=== PATIENT | male | born 1970 | race Caucasian/White ===

== ENCOUNTER 2019-11-14 18:57 | Emergency (ER) | payer OTHER, SELFPAY ==
[2019-11-14 19:06] VITALS: BP 190/112; PULSE 73; RESP 18; TEMP 36.9; O2SAT 97; BMI 31.8
--- NOTE | 2019-11-14 19:17 | ED_ITS ---
HPI - Back Pain/Injury General: Chief Complaint: Back Pain/Injury Stated Complaint: back pain Time Seen by Provider: 11/14/19 19:14 Source: patient Mode of arrival: ambulatory Limitations: no limitations History of Present Illness: HPI Narrative: Patient comes in today with right flank pain radiating into his groin. Patient appears well. Patient does appear in mild to moderate pain. Patient does report taking some Zofran prior to coming to the ER and denies any nausea or vomiting. Patient does have a history of renal stones. Review of Systems General: Reports: 10 or more systems reviewed and unremarkable except in HPI and below : Reports: flank pain (right) Physical Exam Const: COMMON NORMALS: no acute distress and patient oriented x3 GENERAL APPEARANCE: cooperative HENMT: COMMON NORMALS: normocephalic and Normal external nose present HEAD & SCALP: normal to inspection and normocephalic NOSE: Normal external nose present MOUTH: Normal oral and palatal mucosa present THROAT: posterior oropharynx normal Eye: GENERAL EYE: appearance normal, both eyes and all related structures Neck/C-Spine: COMMON NORMALS: full ROM Lymph: LYMPHATIC: no lymphadenopathy noted Chest: COMMONS NORMALS: normal inspection of the chest Resp: COMMON NORMALS: normal respiratory effort EFFORT & INSPECTION: Yes able to speak in complete sentences Cardio: COMMON NORMALS: regular rate and regular rhythm RATE: regular rate RHYTHM: regular rhythm GI: COMMON NORMALS: non-tender : COMMON NORMALS: Yes no CVA tenderness BLADDER/KIDNEY EXAM: Yes no CVA tenderness Back/Pelvis: COMMON NORMALS: no CVA tenderness and thoracic and lumbar spine normal to inspection Extremity: COMMON NORMALS: normal to inspection Neuro: COMMON NORMALS: patient oriented x3 and moves all extremities Psych: COMMON NORMALS: mental status grossly normal and cooperative Skin: COMMON NORMALS: no rashes or lesions noted GENERAL SKIN EXAM: no rashes or lesions noted Course Vital Signs: Vital signs: Vital Signs Temperature 98.5 F 11/14/19 19:06 Pulse Rate 73 11/14/19 19:06 Respiratory Rate 18 11/14/19 19:48 Blood Pressure 190/112 11/14/19 19:06 Pulse Oximetry 97 11/14/19 19:06 MDM - Back Pain/Injury MDM Narrative: Medical decision making narrative: Patient comes in with right flank pain radiating to the groin. Patient is concerned for kidney stone. Exam notes abdomen soft nontender. Patient does not have any right CVA tenderness. Vital signs are normal except for elevated blood pressure. Differential diagnosis includes but not limited to cholecystitis, renal calculi, gastr oenteritis, appendicitis. Laboratory values noted positive blood in the urine without any signs of white blood cells. CT scan of the abdomen noted a 4 mm stone in the mid right ureter. Patient also has a abnormal mass in the colon. Dr. Lopez from [facility] did call and report this finding to me. He recommended further evaluation with imaging or a colonoscopy. Reviewed the test results with patient recommendations for follow-up regarding renal colic and then also colonoscopy with surgery. Patient reports understanding and agreed to plan with case management to consult with referral. Lab Data: Labs: Lab Results 11/14/19 Range/Units 19:20 Urine Color Yellow (Yellow) Urine Appearance Clear (CLEAR) Urine pH 5 (5-7) Ur Specific Gravit y 1.020 (1.005-1.030) Urine Protein Neg (Negative) Urine Glucose (UA) Norm (Normal) Urine Ketones Negative (Negative) Urine Blood 3+ H (Negative) Urine Nitrate Negative (Negative) Urine Bilirubin Neg (NEGATIVE) Urine Urobilinogen 1 H (Negative) mg/dL Ur Leukocyte Jennifer ase Negative (Negative) Urine RBC >100 H (0-2) /hpf Urine WBC None (0-5) /hpf Ur Squamous Epith Cells 0-4 H (0-5) Amorphous Sediment Not Reportable Urine Bacteria Trace (NONE) Urine Mucus 3+ Discharge Plan Discharge Patient Disposition: Home Clinical Impression: Renal colic, Ureteral calculus, right, Abnormal abdominal CT scan Condition: Stable Prescriptions: New tamsulosin 0.4 mg capsule 0.4 mg PO DAILY Qty: 10 RF: 0 hydrocodone-acetaminophen 5-325 mg tablet 1 tab PO Q6H PRN (Reason: pain (scale score 7-10)) Qty: 14 RF: 0 ondansetron HCl 4 mg tablet 4 mg PO Q8H PRN (Reason: nausea and vomiting) Qty: 7 RF: 0 Referrals: Lauri Stoddard DO [Primary Care Provider] - Discharge Diet: Usual diet Discharge Activity: Increase activity as tolerated Patient Instructions: Renal Colic (ED) Activity Restrictions/Additional Instructions: Drink plenty of water. Follow-up with urology for further treatment of kidney stone. Return to the emergency department for high fever or uncontrolled symptoms. You also need follow-up regarding abnormal imaging of the colon. It is recommended you have a colonoscopy for further evaluation to rule out cancer of the colon. It is important for you to follow-up regarding this. Case management will assist with your follow-up for both urology and the abnormal CT scan result. Coding Level of Care Code ED Furnace Tapper for Chg Fwd Exam Comprehensive
--- NOTE | 2019-11-14 19:17 | CTR_ITS ---
PROCEDURE INFORMATION: Exam: CT Abdomen And Pelvis Without Contrast Exam date and time: 11/14/2019 7:19 PM Age: 49 years old Clinical indication: Abdominal pain; Patient HX: Right flank pain since this am. History of kidney stones TECHNIQUE: Imaging protocol: Computed tomography of the abdomen and pelvis without contrast. Radiation optimization: All CT scans at this facility use at least one of these dose optimization techniques: automated exposure control; mA and/or kV adjustment per patient size (includes targeted exams where dose is matched to clinical indication); or iterative reconstruction. COMPARISON: CT abdomen pelvis w con* [id number] 04/19/2019 1:22 PM RADIATION DOSE METRICS: Total DLP (mGy-cm): 2173.42 FINDINGS: Limitations: The absence of intravenous contrast lessens the sensitivity of this study for solid organ abnormalities. Liver: There is no focal abnormality within the liver. Gallbladder and bile ducts: The gallbladder is normal. Pancreas: The pancreas is normal. Spleen: The spleen is normal. Adrenals: The adrenal glands are normal. Kidneys and ureters: There is a 4 mm sized stone in the mid right ureter causing mild right hydronephrosis. Stone measures approximately 1300 Hounsfield units and is possibly visible on the recruitment consultant image. There are multiple bilateral renal collecting system calcifications. There is no evidence of left hydronephrosis. There is no stone in the left ureter. Stomach and bowel: There is a segment of abnormal thickening of the distal transverse colon worrisome for malignancy. There also few small mildly prominent lymph nodes in the adjacent mesentery. Further evaluation such as with colonoscopy or colonography is recommended. Appendix: A normal appendix is identified. Intraperitoneal space: Unremarkable. No free air. No significant fluid collection. Vasculature: Unremarkable. No abdominal aortic aneurysm. Lymph nodes: See Stomach and bowel finding. Bladder: Unremarkable as visualized. Reproductive: Unremarkable as visualized. Bones/joints: There are mild degenerative changes in the lower lumbar spine. Soft tissues: Unremarkable. CT/CT kidney stone 19543 IMPRESSION: 1. Findings are suspicious for colon cancer, further evaluation suggested. 2. Bilateral nephrolithiasis. 3. Obstructing stone in the mid right ureter. Radiation Dose CTDIVOL = (mGy): DLP = 2173.42 (mGy-cm)
[2019-11-14 19:44] LABS: Urine Color Yellow (Yellow)
[2019-11-14 19:45] LABS: Add Urine Microscopic? YES; Bilirubin Urine Neg (NEGATIVE); Blood Urine 3+ (Negative); Glucose Urine UA Norm (Normal); Ketones Urine Negative (Negative); Leukocyte Esterase Urine Negative (Negative); Nitrate Urine Negative (Negative); Protein Urine Neg (Negative); Urine Appearance Clear (CLEAR); Urobilinogen Urine 1 mg/dL (Negative); pH Urine 5 (5-7)
[2019-11-14 19:48] VITALS: RESP 18
[2019-11-14 19:48] LABS: Add Urine Culture? Yes; Bacteria Urine TRACE; Mucus Urine 3+; RBC Urine >100 /hpf (0-2); Squamous Epithelial Cell Urine 0-4 (0-5)
[2019-11-14] MEDS: ketorolac 30 mg/mL INJ 15 MG IVP ×2 (19:48→20:44)
[2019-11-14] MEDS: morphine 4 mg/mL SDV 1 mL 2 MG IVP ×2 (19:48→20:45)
[2019-11-14 20:31] VITALS: BP 179/109; RESP 16; O2SAT 98
[2019-11-14 20:37] LABS: Basophils # 0.1 10^3/uL (0.0-0.1); Basophils % 0.8 %; Eosinophils # 0.4 10^3/uL (0.0-0.8); Hematocrit 43.6 % (42.0-52.0); Hemoglobin 13.9 g/dL (11.7-16.6); Lymphocytes # 2.7 10^3/uL (0.8-4.8); Lymphocytes % 32.1 %; Mean Corpuscular HGB Conc 31.9 g/dL (30.0-36.0); Mean Corpuscular Hemoglobin 26.4 pg (28.0-34.0); Mean Corpuscular Volume 82.9 fL (80-94); Mean Platelet Volume 12.4 fL (7.4-10.4); Monocytes # 0.6 10^3/uL (0.2-0.9); Monocytes % 6.9 %; Neutrophils # 4.69 10^3/uL (1.8-7.7); Nucleated Red Blood Cells % 0 %; Platelet Count 228 10^3/cmm (130-400); Red Blood Count 5.26 10^6/uL (4.1-5.3); Red Cell Distribution Width 12.9 % (12.1-15.1); White Blood Count 8.5 10^3/uL (4.0-10.0)
[2019-11-14] MEDS: HYDROcodone-acetaminophen 7.5-325 mg Tablet 1 TAB PO (20:44)
[2019-11-14 20:45] VITALS: RESP 16
[2019-11-14 20:49] LABS: Alanine Aminotransferase 22 U/L (0-41); Albumin Level 4.5 g/dL (3.5-5.2); Alkaline Phosphatase 84 IU/L (40-130); Anion Gap 12.7 (5-19); Aspartate Amino Transferase 21 U/L (0-40); Blood Urea Nitrogen 11 mg/dL (6-20); Calcium 9.3 mg/dL (8.5-10.5); Carbon Dioxide 27 mmol/L (22-29); Chloride 105 mmol/L (98-107); Globulin 2.4 g/dL (1.3-4.6); Glomerular Filtration Rate 64.9 mL/min (90-130); Glucose 101 mg/dL (65-115); Osmolality Calculated 288 mOsm/kg (285-295); Potassium 3.7 mmol/L (3.5-5.1); Sodium 141 mmol/L (136-145); Total Bilirubin 0.2 mg/dL (0.15-1.2); Total Protein 6.9 g/dL (6.6-8.7)
[2019-11-14 20:51] VITALS: BP 202/113
--- NOTE | 2019-11-17 10:26 | PC.SOCIAL ---
Called Urology regarding ED referral for Kidney stones spoke with Cinthya. She will review and call patient with appt. Called Nicolle at Surgery clinic regarding ED referral for Colonoscopy related to abnormal CT scan. She will review and call patient with appt.
--- NOTE | 2019-11-26 11:07 | DCPLANNER ---
Patient had an appointment scheduled for 11.18.19 and this appointment was cancelled. Patient had an appointment scheduled for 11.18.19 at 3:45 with [facility], patient did attend appointment with Dr. Lopez.
== END 2019-11-14 21:19 | disposition home or self-care (01) ==
PROVIDERS: Emergency Medicine; Emergency Provider Nurse Practitioner Family; PCP Family Medicine
DX: N20.1 Calculus of ureter (principal); R93.5 Abnormal findings on diagnostic imaging of other abdominal regions, including retroperitoneum
CPT/HCPCS: 12345; 74176; 80053; 81001; 81003; 85025; 87086; 96374; 96375; 96376; 99283; J1885; J2270

== ENCOUNTER 2019-11-27 07:41 | Day surgery (SDC) | payer OTHER, SELFPAY ==
[2019-11-25 11:03] VITALS: BMI 31.1
[2019-11-27 08:00] VITALS: BP 166/97; PULSE 60; RESP 18; TEMP 37.3; O2SAT 98
[2019-11-27] MEDS: sodium chloride 0.9% 1,000 ML 30 ML IV (08:15)
--- NOTE | 2019-11-27 08:17 | ANES.PREANE2 ---
Pre-Anesthetic Assessment Pre-Anesthetic Assessment: Height/Weight: Height 1.83 m Weight 104.326 kg Temp Pulse Resp BP Pulse Ox 99.2 F 60 18 166/97 98 11/27/19 08:00 11/27/19 08:00 11/27/19 08:00 11/27/19 08:00 11/27/19 08:00 Preop Diagnosis: Hematochezia Proposed Procedure: Operation Date: 11/27/19 08:30 Proposed Procedures p Colonoscopy with poss biopsy poss polypectomy 84354 K92.1(Not Applicable) - Brad Lopez MD Last intake: Intake Last Liquid Date 11/26/19 Last Liquid Time 23:55 Last Solid Date 11/25/19 Last Solid Time 20:00 Social: Social History: Alcohol (occ) and Tobacco Exam: Pre-Anes Outpt Exam: alert, oriented x 3, clear to auscultation bilaterally and regular rate & rhythm Airway: Submandibular: WNL Cervical ROM: WNL MP: 1 Dentition: Full (dentures) History/ROS: No significant history except as noted Pulmonary: Pulmonary: None reported CV/HEM: CV/HEM: HTN : : None reported Hepatic: Hepatic: None reported GI: Comments: GI bleed Metabolic: Metabolic: None reported Musc/skel: Musc/skel: None reported Neuropsych: Neuropsych: None reported Anesthetic Plan: ASA status: 2 Anesthesia: Anesthesia Evaluation and MAC Risk of > 500 ml blood loss (7ml/kg in children): No Meds/Allergies Current Medications: Current Medications Generic Name Dose Route Start Last Admin Trade Name Freq PRN Reason Stop Dose Admin Sodium Chloride 1,000 mls @ 30 ml s/hr 11/27/19 08:00 11/27/19 08:15 Sodium Chloride 0.9% IV 30 mls/hr .Q24H FEROZ Administration PFSH Anesthesia PFSH: Medical History Ureteral calculus, right Surgical History History of oral surgery Family History Grandmother Cancer Mother Diabetes Denies family history of Anesthesia complication Bleeding disorder Social History Smoking and tobacco status: current every day smoker pipe Pipes smoked per week: 14 and smokeless tobacco Second hand smoke exposure: No Alcohol intake: current Alcohol intake frequency: holidays/special occasions only Alcohol type: beer Adopted: No Caregiver/support person: Yes Lives independently: Yes Housing: House Marital status: service: Yes branch: [employer] Current occupational status: employed Current occupational exposures/hazards: No Pets and animals: No History of recent travel: No Sexually active: Yes Current gender identity: Male and Female Ana M/Adventist: Cheondoism Data Anesthesia Cardiac Studies: No Data to Display
--- NOTE | 2019-11-27 09:22 | W.PM.OPSUD ---
Surgery/Procedure H&P Update DATE OF PROCEDURE: November 27, 2019 DATE H&P PERFORMED: 11/18/19 H&P UPDATE INFORMATION: I have reviewed H&P completed within last 30 days, I have examined patient prior to procedure and No changes to prior documentation PREOP DIAGNOSIS: Hematochezia PLANNED PROCEDURE: Operation Date: 11/27/19 08:30 Proposed Procedures p Colonoscopy with poss biopsy poss polypectomy 58227 K92.1(Not Applicable) - Brad Lopez MD
[2019-11-27 10:17] VITALS: BP 147/92; PULSE 58; RESP 18; TEMP 36.4; O2SAT 98
[2019-11-27 10:27] VITALS: BP 144/93; PULSE 57; RESP 18; TEMP 36.4; O2SAT 97
--- NOTE | 2019-11-27 11:08 | PM.OP ---
Operative Report Date of procedure: November 27, 2019 Pre-op Diagnosis: Hematochezia Post-op Diagnosis: Distal transverse colon mass concerning for malignancy Procedure Done: Colonoscopy past splenic flexure with biopsy Colonoscopy with submucosal injection of Joelle Ink Specimens removed/disposition: Transverse colon mass Surgeon: Brad Lopez Anesthesia: MAC Condition: stable Disposition: same day Procedure: The patient was taken to the operating room and placed in left lateral position under MAC . Bowel prep was fair Digital rectal exam was normal. A colonoscope was introduced and advanced up to the distal transverse colon where there is a circumferential obstructing mass noted beyond which I could not pass the colonoscope. The mass appeared friable and multiple biopsies were obtained with cold biopsy forceps. The area was marked with Joelle ink which was injected submucosally. The colonoscope was withdrawn. The patient was taken to the recovery room in stable condition.
== END 2019-11-27 11:10 | disposition home or self-care (01) ==
PROVIDERS: PCP Family Medicine; Visit Provider Surgery
PROC: 0DJD8ZZ Inspection of Lower Intestinal Tract, Via Natural or Artificial Opening Endoscopic (ICD-10-PCS; CPT 45378; 2019-11-27 09:30)
DX: K92.1 Melena (principal); C18.6 Malignant neoplasm of descending colon; I10 Essential (primary) hypertension
CPT/HCPCS: 12345; 45380; 45381; 88305; J2704; J7030

== ENCOUNTER 2019-11-28 09:27 | Inpatient (IN) | payer OTHER, SELFPAY ==
[2019-11-27 17:44] VITALS: BMI 31.1
[2019-11-28] VITALS (24 sets, daily range): BP systolic 110–182; BP diastolic 72–104; PULSE 57–97; RESP 14–20; TEMP 36.6–37.2; O2SAT 92–99
--- NOTE | 2019-11-28 06:20 | P.ANESASSM_ITS ---
Pre-Anesthetic Assessment Pre-Anesthetic Assessment: Height/Weight: Height 1.83 m Weight 104.326 kg Temp Pulse Resp BP Pulse Ox 97.8 F 57 L 16 182/101 97 11/28/19 06:13 11/28/19 06:13 11/28/19 06:13 11/28/19 06:13 11/28/19 06:13 Preop Diagnosis: Transverse colon cancer Proposed Procedure: Operation Date: 11/28/19 07:00 Proposed Procedures p Laparoscopic poss open Left Hemicolectomy 98314 C18.4(Not Applicable) - Brad Lopez MD Familial anesthetic complications: none Last intake: Intake Last Liquid Date 11/27/19 Last Liquid Time 18:00 Last Solid Date 11/26/19 Last Solid Time 00:00 Social: Social History: Tobacco Airway: Cervical ROM: WNL MP: 1 Dentition: False CV/HEM: CV/HEM: HTN GI: Comments: colon cancer Anesthetic Plan: ASA status: 2 Anesthesia: General PFSH Anesthesia PFSH: Medical History (Updated 11/27/19 @ 10:18 by Brad Lopez MD) Cancer of transverse colon Ureteral calculus, right Surgical History (Updated 11/27/19 @ 10:18 by Brad Lopez MD) History of oral surgery Status post colonoscopy with polypectomy (11/27/19) Family History Grandmother Cancer Mother Diabetes Denies family history of Anesthesia complication Bleeding disorder Social History Smoking and tobacco status: current every day smoker pipe Pipes smoked per week: 14 and smokeless tobacco Second hand smoke exposure: No Alcohol intake: current Alcohol intake frequency: holidays/special occasions only Alcohol type: beer Adopted: No Caregiver/support person: Yes Lives independently: Yes Housing: House Marital status: service: Yes branch: [employer] Current occupational status: employed Current occupational exposures/hazards: No Pets and animals: No History of recent travel: No Sexually active: Yes Current gender identity: Male and Female Ana M/Jew: Jainism Data Anesthesia Cardiac Studies: No Data to Display
[2019-11-28] MEDS: sodium chloride 0.9% 1,000 ML 30 ML IV (06:32)
--- NOTE | 2019-11-28 06:41 | W.PM.OPSUD ---
Surgery/Procedure H&P Update DATE OF PROCEDURE: November 28, 2019 DATE H&P PERFORMED: 11/18/19 H&P UPDATE INFORMATION: I have reviewed H&P completed within last 30 days, I have examined patient prior to procedure and No changes to prior documentation PREOP DIAGNOSIS: Transverse colon cancer PLANNED PROCEDURE: Operation Date: 11/28/19 07:00 Proposed Procedures p Laparoscopic poss open Left Hemicolectomy 53314 C18.4(Not Applicable) - Brad Lopez MD
[2019-11-28 07:15] LABS: Carcinoembryonic Antigen 162.5 ng/mL (0.0-4.7)
[2019-11-28] MEDS: metroNIDAZOLE IV 500 MG/100 ML PREMIX 100 MG IV ×3 (07:15→21:53)
--- NOTE | 2019-11-28 07:45 | P.ANESUD_ITS ---
Pre-Anesthetic Update Pre-Anesthetic Assessment: Date of Surgery/Procedure: 11/28/19 Preop Heidi gnosis: Transverse colon cancer Proposed Procedure: Operation Date: 11/28/19 07:00 Proposed Procedures p Laparoscopic poss open Left Hemicolectomy 20162 C18.4(Not Applicable) - Brad Lopez MD Any changes to Pre-Anesthetic Assessment?: No Last Intake: Intake Last Liquid Date 11/27/19 Last Liquid Time 18:00 Last Solid Date 11/26/19 Last Solid Time 00:00 Labs Last 48hrs: Laboratory Results - last 48 hr 11/28/19 11/28/19 06:35 06:35 Carcinoembryonic A g 162.5 H Blood Type B Positive Rho(D) Type Positive Antibody Screen Negative Vitals: Temperature 97.8 F 11/28/19 06:13 Temperature Source Temporal Artery S can 11/28/19 06:13 Pulse Rate 57 L 11/28/19 06:13 Respiratory Rate 16 11/28/19 06:13 Blood Pressure 182/101 11/28/19 06:13 Blood Pressure Josi n 128 11/28/19 06:13 Pulse Oximetry 97 11/28/19 06:13 Oxygen Delivery Me thod 11/28/19 06:13 Cardiac Studies: No Data to Display
--- NOTE | 2019-11-28 08:03 | SUR.OPER ---
0751- s/o updated of surgical status
--- NOTE | 2019-11-28 08:52 | SUR.OPER ---
0852- s/o updated of surgical status
--- NOTE | 2019-11-28 10:03 | SUR.OPER ---
1000 s/o updated of surgical status
[2019-11-28] MEDS: meperidine 50 mg/mL INJ 12.5 MG IVP (10:40)
[2019-11-28] MEDS: ondansetron 2 mg/ML SDV 2 mL 4 MG IVP ×2 (10:46→15:21)
[2019-11-28] MEDS: fentaNYL 50 mcg/mL INJ 2mL IVP (10:50)
--- NOTE | 2019-11-28 11:02 | SUR.PHASEI ---
PT AWAKES TO VOICE, RATES PAIN AT 6 BUT QUICKLY BACK TO SLEEP SNORING RESP SEE EARLIER PAIN MEDS ABD SOFT WITH 4 SITES D/I GARCIA TO DD WITH SMALL AMT YELLOW URINE NOTED.
[2019-11-28] MEDS: D5-NS 0.45% + KCL 20 mEq 20 MEQ/1,000 ML BAG 100 MEQ IV (11:30)
[2019-11-28] MEDS: morphine 4 mg/mL SDV 1 mL 2 MG IVP ×3 (12:23→20:19)
--- NOTE | 2019-11-28 12:25 | SUR.PHASEI ---
1125 PT TO FLOOR PER CART PT ALERT TALKATIVE WITH NURSE ALEX RN , PT ASSISTED WITH TRANSFER TO BED, ABD SOFT WITH 4 SITES D/I, GARCIA TO DD YELLOW URINE NOTED IN TUBING, BP 110/72, HR 84 RESP 16, SATS ON 3LNC 97%.
[2019-11-28] MEDS: famotidine 20 mg/2 mL INJ IVP ×2 (12:27→22:44)
[2019-11-28] MEDS: ondansetron 2 mg/ML SDV 2 mL 4 MG (12:28)
--- NOTE | 2019-11-28 12:37 | PM.OP ---
Operative Report Date of procedure: November 28, 2019 Pre-op Diagnosis: Obstructing distal transverse colon cancer Post-op Diagnosis: 1. Obstructing distal transverse colon cancer 2. No evidence of peritoneal carcinomatosis or liver metastasis Procedure Done: Laparoscopic left hemicolectomy with extracorporeal colocolic [id number] anastomosis Specimens removed/disposition: Distal transverse colon and descending colon Surgeon: Brad Lopez Anesthesia: General Estimated blood loss (mL): 25 IV fluids (mL): 2,000 Urine output (mL): 250 Condition: stable Disposition: PACU Procedure: The patient was taken to the operating room and intubated under general anesthesia after IV antibiotic had been administered and patient was placed in the modified lithotomy position. A Butler catheter was placed. The abdomen was prepped and draped in a sterile manner. Using a 15 blade a midline periumbilical incision was made and using open Stephens technique the peritoneal cavity was entered and a 10 mm port was placed and 15 mm of pneumoperitoneum was created. A 10 mm 30 degrees scope was introduced. 3 separate 5 mm ports were placed in the right lower quadrant and left lower quadrant in the midclavicular line and on the right side at the level of the umbilicus in the midclavicular line. The patient was placed in steep Trendelenburg position and rotated towards the right side thus moving the small bowel to his right paracolic gutter. The transverse colon was retracted superiorly. The ligament of Treitz was identified and an opening made in the retroperitoneum adjacent the inferior mesenteric vein. A plane posterior to the IMV was identified and dissection was carried bluntly through the avascular plane up to the left paracolic gutter thus mobilizing the descending colon from medial to lateral aspect. About 2 inches superiorly and lateral to the ligament of Treitz an opening was made in the transverse mesocolon using LigaSure to enter the lesser sac. The transverse mesocolon was divided from the body and the tail of the pancreas up to the splenic flexure using LigaSure. The line of Toldt was opened on the left side starting from the sigmoid colon all the way up to the splenic flexure thus mobilizing the descending colon completely. Inferior mesenteric vein was identified and the mesocolon of the descending colon was retracted superiorly revealing the left colic artery coming off MARIE which was also divided with LigaSure. The anterior leaflet of the greater omentum was divided starting in the mid transverse colon and extending up to the splenic flexure, splenocolic and phrenocolic ligaments were divided resulting in complete mobilization of the distal half of the transverse colon and descending colon. At this point the greater omentum was divided from the proximal transverse colon and the transverse colon was mobilized and hepatocolic ligaments were taken down. The peritoneum overlying the sigmoid colon was divided in order to mobilize it proximally towards the hepatic flexure. At this point it was noted that there is adequate length of sigmoid colon to perform a tension-free anastomosis. The umbilical incision was extended and the wound protector was placed and the mobilized colon was exteriorized. The site of the planned anastomosis was cleared of appendiceal epiploica and interrupted 4-0 Vicryl sutures were placed to approximate the proximal transverse colon to the sigmoid colon. Using electrocautery, colotomies were created on the transverse colon and sigmoid colon adjacent to each other and a 75 mm blue load NELDA stapler was fired to create a [id number] enteroenterostomy. The newly created colotomies were grasped with Allis clamps and 2 loads of 75mm blue load NELDA stapler was fired just distal to the colotomies resulting in creation of [id number] anastomosis as well as resection of the left colon. 4-0 Vicryl Lembert sutures were placed at the junction of the staple lines. 3-0 Vicryl suture was placed in the proximal end of the divided segment. The omentum was laid over the anastomosis and the GelPort was placed to re-create the pneumoperitoneum. 20 cc of saline mixed with 20 cc of 0.5 % Marcaine mixed with 20 cc of Exparel was injected in the midclavicular line under laparoscopic visualization for TAP block. The wound protector was removed and the fascia in the midline was closed using #1 looped PDS. Subcutaneous tissues were approximated using interrupted 3-0 Vicryl suture and skin at all 4 sites were closed using 4-0 Monocryl and skin glue. The patient was extubated and transferred to recovery room in stable condition with a Butler catheter.
[2019-11-28] MEDS: HYDROcodone-acetaminophen 5-325 mg Tablet 1 TAB PO ×2 (15:20→21:51)
[2019-11-28] MEDS: docusate sodium 100 mg Capsule PO (17:14)
[2019-11-28] MEDS: sodium chloride 0.9% 1,000 ML 100 ML IV (17:20)
[2019-11-29] VITALS: BP 111/75; PULSE 68; RESP 18; TEMP 37.1; O2SAT 92
[2019-11-29] MEDS: D5-NS 0.45% + KCL 20 mEq 20 MEQ/1,000 ML BAG 100 MEQ IV ×2 (00:20→14:36)
[2019-11-29 04:00] VITALS: BP 119/77; PULSE 59; RESP 20; TEMP 37.2; O2SAT 92
[2019-11-29 04:44] LABS: Basophils % 0.2 %; Hematocrit 37.5 % (42.0-52.0); Hemoglobin 12.1 g/dL (11.7-16.6); Lymphocytes # 1.1 10^3/uL (0.8-4.8); Lymphocytes % 8.2 %; Mean Corpuscular HGB Conc 32.3 g/dL (30.0-36.0); Mean Corpuscular Hemoglobin 27.1 pg (28.0-34.0); Mean Corpuscular Volume 84.1 fL (80-94); Mean Platelet Volume 11.9 fL (7.4-10.4); Monocytes # 1.5 10^3/uL (0.2-0.9); Monocytes % 11.1 %; Neutrophils # 10.63 10^3/uL (1.8-7.7); Nucleated Red Blood Cells % 0 %; Platelet Count 203 10^3/cmm (130-400); Red Blood Count 4.46 10^6/uL (4.1-5.3); Red Cell Distribution Width 12.8 % (12.1-15.1); White Blood Count 13.3 10^3/uL (4.0-10.0)
[2019-11-29 05:13] LABS: Anion Gap 10.7 (5-19); Blood Urea Nitrogen 10 mg/dL (6-20); Carbon Dioxide 26 mmol/L (22-29); Chloride 105 mmol/L (98-107); Glomerular Filtration Rate 64.9 mL/min (90-130); Glucose 142 mg/dL (65-115); Osmolality Calculated 284 mOsm/kg (285-295); Potassium 3.7 mmol/L (3.5-5.1); Sodium 138 mmol/L (136-145)
--- NOTE | 2019-11-29 05:19 | PC.NURSE ---
Patient has ambulated 2600 ft through the night. Patient is reporting gas pain 8/10 and has not passed flatus since surgery. Pt has dickson catheter with 650 ml output. Surgical sites are C/D/I. Patient was educated on braced abd with pillow when standing and moving around in bed. Patient states that he would really like the dickson removed as soon as possible. Intake was 480 ml of water.
[2019-11-29 07:28] VITALS: BP 127/81; PULSE 64; RESP 18; TEMP 36.8; O2SAT 93
[2019-11-29] MEDS: enoxaparin 40 mg/0.4 mL Syringe SUBCUT (08:20)
[2019-11-29] MEDS: lisinopril 20 mg Tablet PO (08:20)
[2019-11-29] MEDS: hydroCHLOROthiazide 25 mg Tablet PO (08:20)
[2019-11-29] MEDS: docusate sodium 100 mg Capsule PO ×2 (08:20→17:15)
[2019-11-29] MEDS: HYDROcodone-acetaminophen 5-325 mg Tablet 1 TAB PO ×3 (08:23→21:23)
[2019-11-29] MEDS: ondansetron 2 mg/ML SDV 2 mL 4 MG IVP ×3 (08:28→21:23)
--- NOTE | 2019-11-29 08:52 | PC.NURSE ---
patient's dickson cath removed at 0800, 10ml of fluid removed. Patient tolerated well. 400 out of collection bag. Patient states he has no pain at this time.
--- NOTE | 2019-11-29 09:06 | PM.PN ---
Subjective Subjective: Interval history: Patient has been doing okay overnight, passing flatus, no nausea or vomiting, feels a bit distended, pain is controlled Vitals/I&O/Wt Last Vital Signs Temp 98.2 F 11/29/19 07:28 Pulse 64 11/29/19 07:28 Resp 18 11/29/19 07:28 BP 127/81 11/29/19 07:28 Pulse Ox 93 11/29/19 07:28 11/28/19 11/29/19 11/29/19 22:59 06:59 14:59 Intake Total 2140 / 4580 390 / 4580 1100 / 1100 Output Total 550 / 1750 650 / 1750 400 / 400 Balance 1590 / 2830 -260 / 2830 700 / 700 Weight last 48 hrs Weight 230 lb Physical Exam Narrative: EXAM NARRATIVE: Abdomen: Soft, slightly distended, tender, incisions clean dry and intact Urinary Catheter Management^: Butler: Cath Placed During This Visit: yes Urinary Catheter Date of Insertion: 11/28/19 Urinary Catheter Time of Insertion: 07:35 Data : 11/29/19 04:14 11/29/19 04:14 A&P Assessment and plan (1) Status post left hemicolectomy: Status post left hemicolectomy postop day 1 with postop ileus Decrease IV fluids to 50 cc/h Start clear liquid diet Ambulate with PT Lovenox for DVT prophylaxis Pepcid for GI prophylaxis DC Butler Patient will need greater than 2 nights of inpatient stay Status: Acute Attestations Medical Necessity Statement*: Status post left hemicolectomy requiring continued inpatient stay to ensure resolution of ileus Coding Level of Care Code Acute Telecommunications Project Manager for Chg Fwd Diagnoses Status post left hemicolectomy Z90.49
[2019-11-29 11:58] VITALS: BP 112/66; PULSE 62; RESP 17; TEMP 36.9; O2SAT 95
[2019-11-29] MEDS: famotidine 20 mg/2 mL INJ IVP ×2 (13:18→22:45)
[2019-11-29 15:37] VITALS: BP 121/78; PULSE 63; RESP 17; TEMP 36.8; O2SAT 92
--- NOTE | 2019-11-29 16:16 | PC.CHAP ---
Pastoral Care Encounter/Spiritual Assessment Type of Contact [] Declined field marketing director visit [] Patient/Family/Request visit [] Outpatient visit [] Follow-up visit [] Physician referral [] Code/Alert [X] Routine visit [] Staff referral [] Actively dying [] Patient sleeping [] Family support [] [] Out of room [] Palliative care [] [] Receiving care in room [] Pre-surgical visit [] Trauma [] Long length of stay [] ICU visit [] Other: Relational/Emotional Strength [] Patient feels connected with others/family/visitors/staff [] Distress [] Loneliness/isolation [] Abandonment Spirituality of Patient [] Person of Ana M [] Attends Judaism of their Ana M [] Believes in Prayer [] Reads Bible or Yazdanism materials [] There are Spiritual issues to be addressed Rating Clerk Interventions [] Prayer [] Active listening [] Non-anxious presence [] Spiritual/emotional support [] Crisis/trauma care [] Spiritual counseling [] Bereavement support [] Provided bereavement packet [] Provided Bible/devotional materials [] Provided toy/stuffed animal, coloring book to patient or family member [] Provided Communion [] Anointing/Mears [] Salvation [] Completed spiritual assessment [] Other: Impact on Illness or Injury [] Angry [] Fearful [] Anxious [] Often cries [] Exhaustion [] Unable to work [] Unable to attend amish [] Unable to walk/stand [] Unable to read [] Unable to drive [] Unable to eat/drink [] Unable to sleep [] Unable to be with family [] Patient intubated [] Other: Summary Time spent with patient
[2019-11-29 20:00] VITALS: BP 143/79; PULSE 67; RESP 20; TEMP 37; O2SAT 92
[2019-11-30] VITALS (7 sets, daily range): BP systolic 122–157; BP diastolic 75–96; PULSE 65–84; RESP 14–18; TEMP 36.9–37.3; O2SAT 92–95
[2019-11-30] MEDS: D5-NS 0.45% + KCL 20 mEq 20 MEQ/1,000 ML BAG 100 MEQ IV (00:46)
--- NOTE | 2019-11-30 03:47 | PC.NURSE ---
Ambulation Patient states that he has passed a little flatus a couple of times. Patient was encouraged by staff to ambulate to help with flatus. Patient says that his pain is improving.
[2019-11-30 05:05] LABS: Basophils % 0.5 %; Eosinophils # 0.1 10^3/uL (0.0-0.8); Eosinophils % 1.6 %; Hematocrit 36.5 % (42.0-52.0); Hemoglobin 11.7 g/dL (11.7-16.6); Lymphocytes # 1.2 10^3/uL (0.8-4.8); Lymphocytes % 13.9 %; Mean Corpuscular HGB Conc 32.1 g/dL (30.0-36.0); Mean Corpuscular Volume 84.1 fL (80-94); Mean Platelet Volume 11.8 fL (7.4-10.4); Monocytes # 0.9 10^3/uL (0.2-0.9); Monocytes % 10.3 %; Neutrophils # 6.49 10^3/uL (1.8-7.7); Neutrophils % 73.2 %; Nucleated Red Blood Cells % 0 %; Platelet Count 173 10^3/cmm (130-400); Red Blood Count 4.34 10^6/uL (4.1-5.3); Red Cell Distribution Width 12.9 % (12.1-15.1); White Blood Count 8.9 10^3/uL (4.0-10.0)
[2019-11-30 05:27] LABS: Anion Gap 10.2 (5-19); Blood Urea Nitrogen 8 mg/dL (6-20); Calcium 8.9 mg/dL (8.5-10.5); Carbon Dioxide 27 mmol/L (22-29); Chloride 102 mmol/L (98-107); Glomerular Filtration Rate 64.9 mL/min (90-130); Glucose 109 mg/dL (65-115); Osmolality Calculated 278 mOsm/kg (285-295); Potassium 3.2 mmol/L (3.5-5.1); Sodium 136 mmol/L (136-145)
[2019-11-30] MEDS: HYDROcodone-acetaminophen 5-325 mg Tablet 1 TAB PO ×3 (06:01→15:05)
[2019-11-30] MEDS: docusate sodium 100 mg Capsule PO (08:21)
[2019-11-30] MEDS: hydroCHLOROthiazide 25 mg Tablet PO (08:21)
[2019-11-30] MEDS: enoxaparin 40 mg/0.4 mL Syringe SUBCUT (08:22)
[2019-11-30] MEDS: lisinopril 20 mg Tablet PO (08:22)
--- NOTE | 2019-11-30 09:40 | P.PN_ITS ---
Subjective Subjective: Interval history: Patient denies significant abdominal pain, no nausea or vomiting, tolerating clear liquid diet, passing flatus, had a small bloody bowel movement today Medications: Reviewed: Yes Vitals/I&O/Wt Last Vital Signs Temp 98.4 F 11/30/19 07:42 Pulse 72 11/30/19 07:42 Resp 18 11/30/19 07:42 BP 157/83 11/30/19 07:42 Pulse Ox 92 11/30/19 03:44 11/29/19 11/30/19 11/30/19 22:59 06:59 14:59 Intake Total 2040 / 5820 1480 / 5820 Output Total 1250 / 2150 Balance 790 / 3670 1480 / 3670 Physical Exam Narrative: EXAM NARRATIVE: Abdomen: Soft, minimally tender, distended, incision clean dry and intact Urinary Catheter Management^: Butler: Cath Placed During This Visit: yes Urinary Catheter Date of Insertion: 11/28/19 Urinary Catheter Time of Insertion: 07:35 Data : 11/30/19 04:41 11/30/19 04:41 A&P Assessment and plan (1) Status post left hemicolectomy: Status post left hemicolectomy postop day 1 with postop ileus Decrease IV fluids to 30 cc/h clear liquid diet Ambulate with PT Lovenox for DVT prophylaxis Pepcid for GI prophylaxis Potassium was 3.2: 80 mEq of potassium chloride given Advised to restrict oral intake today since he is a bit distended Patient will need greater than 2 nights of inpatient stay Status: Acute Attestations 2 Medical Necessity Statement*: Status post left hemicolectomy with postop ileus Coding Level of Care Code Acute Director Of Financial Planning for Chg Fwd Diagnoses Status post left hemicolectomy Z90.49
[2019-11-30] MEDS: potassium chloride ER 10 mEq Tablet 80 MEQ PO (10:33)
[2019-11-30] MEDS: famotidine 20 mg/2 mL INJ IVP ×2 (10:34→22:47)
[2019-11-30] MEDS: sennosides-docusate Tablet 1 TAB PO (18:09)
[2019-11-30] MEDS: morphine 4 mg/mL SDV 1 mL 2 MG IVP (19:16)
[2019-11-30] MEDS: ondansetron 2 mg/ML SDV 2 mL 4 MG IVP (19:29)
[2019-12-01] VITALS: BP 157/95; PULSE 82; RESP 18; TEMP 36.6; O2SAT 92
[2019-12-01] MEDS: ondansetron 2 mg/ML SDV 2 mL 4 MG IVP (00:15)
[2019-12-01] MEDS: HYDROcodone-acetaminophen 5-325 mg Tablet 1 TAB PO ×2 (00:16→15:41)
[2019-12-01 04:00] VITALS: BP 127/74; PULSE 81; RESP 14; TEMP 37; O2SAT 93
[2019-12-01 06:28] LABS: Basophils # 0.1 10^3/uL (0.0-0.1); Basophils % 0.4 %; Eosinophils # 0.3 10^3/uL (0.0-0.8); Eosinophils % 2.3 %; Hematocrit 46.7 % (42.0-52.0); Hemoglobin 14.9 g/dL (11.7-16.6); Lymphocytes % 13.9 %; Mean Corpuscular HGB Conc 31.9 g/dL (30.0-36.0); Mean Corpuscular Hemoglobin 26.6 pg (28.0-34.0); Mean Corpuscular Volume 83.4 fL (80-94); Mean Platelet Volume 11.9 fL (7.4-10.4); Monocytes # 1.2 10^3/uL (0.2-0.9); Monocytes % 8.5 %; Neutrophils # 10.47 10^3/uL (1.8-7.7); Neutrophils % 74.4 %; Nucleated Red Blood Cells % 0 %; Platelet Count 307 10^3/cmm (130-400); Red Cell Distribution Width 12.6 % (12.1-15.1); White Blood Count 14.1 10^3/uL (4.0-10.0)
[2019-12-01 07:03] LABS: Anion Gap 16.6 (5-19); Blood Urea Nitrogen 8 mg/dL (6-20); Calcium 10.3 mg/dL (8.5-10.5); Carbon Dioxide 28 mmol/L (22-29); Chloride 97 mmol/L (98-107); Glomerular Filtration Rate 64.9 mL/min (90-130); Glucose 102 mg/dL (65-115); Osmolality Calculated 282 mOsm/kg (285-295); Potassium 3.6 mmol/L (3.5-5.1); Sodium 138 mmol/L (136-145)
[2019-12-01 07:55] VITALS: BP 143/90; PULSE 77; RESP 18; TEMP 37.4; O2SAT 97
[2019-12-01] MEDS: enoxaparin 40 mg/0.4 mL Syringe SUBCUT (08:42)
[2019-12-01] MEDS: lisinopril 20 mg Tablet PO (08:42)
[2019-12-01] MEDS: hydroCHLOROthiazide 25 mg Tablet PO (08:42)
[2019-12-01] MEDS: famotidine 20 mg/2 mL INJ IVP (11:01)
[2019-12-01 12:00] VITALS: BP 161/67; PULSE 67; RESP 18; TEMP 36.6; O2SAT 99
[2019-12-01 14:10] VITALS: BP 142/95; PULSE 84; RESP 16; TEMP 36.8; O2SAT 95
--- NOTE | 2019-12-01 14:53 | P.PN_ITS ---
Subjective Subjective: Interval history: Patient passed a lot of flatus, had multiple loose bowel movements, no nausea or vomiting, does not feel bloated Vitals/I&O/Wt Last Vital Signs Temp 98.2 F 12/01/19 14:10 Pulse 84 12/01/19 14:10 Resp 16 12/01/19 14:10 BP 142/95 12/01/19 14:10 Pulse Ox 95 12/01/19 14:10 11/30/19 12/01/19 12/01/19 22:59 06:59 14:59 Intake Total 540 / 1840 600 / 1840 360 / 360 Output Total 100 / 100 Balance 440 / 1740 600 / 1740 360 / 360 Physical Exam Narrative: EXAM NARRATIVE: Abdomen: Soft, less distended, minimally tender, incision clean dry and intact Urinary Catheter Management^: Butler: Cath Placed During This Visit: yes Urinary Catheter Date of Insertion: 11/28/19 Urinary Catheter Time of Insertion: 07:35 Data : 12/01/19 05:55 12/01/19 05:55 A&P Assessment and plan (1) Status post left hemicolectomy: Status post left hemicolectomy, postop ileus has resolved DC home today Status: Acute Attestations Medical Necessity Statement*: Status post left hemicolectomy, DC home today Coding Level of Care Code Acute Hearing Care Practitioner for Chg Fwd Diagnoses Status post left hemicolectomy Z90.49
--- NOTE | 2019-12-01 14:55 | PM.DCS ---
Discharge Providers Date of Admission: 11/28/19 09:27 Date of Discharge: December 01, 2019 Attending Provider at Admission: Brad Lopez MD Attending Provider at Discharge: Brad Lopez MD Primary Care Provider: Lauri Stoddard DO Diagnoses at Discharge Discharge Diagnosis (1) Status post left hemicolectomy: Status: Acute Reason for Visit Reason for Visit: left hemicolectomy Hospital Course Hospital Course: The patient was admitted to the hospital after he underwent laparoscopic left hemicolectomy for distal transverse colon cancer. By postop day 2 he had return of bowel function and by day 3 he was tolerating a diet. At time of discharge his vital signs are stable, his incision is clean dry and intact. Physical Exam Urinary Catheter Management^: Butler: Cath Placed During This Visit: yes Urinary Catheter Date of Insertion: 11/28/19 Urinary Catheter Time of Insertion: 07:35 Discharge Data Data Completed and Pending: Pending at discharge Category Date Time Status Pathology: Surgic al [PTH] Routine Pth 11/28/19 10:13 Received Labs from last 24 hours 12/01/19 12/01/19 05:55 05:55 WBC 14.1 H RBC 5.60 H Hgb 14.9 Hct 46.7 MCV 83.4 MCH 26.6 L MCHC 31.9 RDW 12.6 Plt Count 307 MPV 11.9 H Neut % (Auto) 74.4 Lymph % (Auto) 13.9 Frontier % (Auto) 8.5 Eos % (Auto) 2.3 Baso % (Auto) 0.4 Neut # (Auto) 10.47 H Lymph # (Auto) 2.0 Frontier # (Auto) 1.2 H Eos # (Auto) 0.3 Baso # (Auto) 0.1 Nucleated RBC % (a uto) 0 Nucleated RBCs # 0.0 Sodium 138 Potassium 3.6 Chloride 97 L Carbon Dioxide 28 Anion Gap 16.6 BUN 8 Creatinine 1.2 GFR Calculation 64.9 L Glucose 102 Calculated Osmolal ity 282 L Calcium 10.3 Vitals: Last Vital Signs Temp 98.2 F 12/01/19 14:10 Pulse 84 12/01/19 14:10 Resp 16 12/01/19 14:10 BP 142/95 12/01/19 14:10 Pulse Ox 95 12/01/19 14:10 Discharge Plan Discharge Patient Disposition: Home Condition: Stable Prescriptions: New hydrocodone-acetaminophen 5-325 mg Tablet 1 tab PO Q6H PRN (Reason: Moderate Pain) Qty: 20 RF: 0 sennosides-docusate sodium 8.6-50 mg Tablet 1 tab PO BID Qty: 30 RF: 0 Continued clonazepam 0.5 mg tablet 0.5 mg PO BID PRN (Reason: Anxiety) RF: 0 lisinopril-hydrochlorothiazide 20-25 mg tablet 1 tab PO DAILY RF: 0 Discharge Orders: Discharge Order (Routine); Ordered 12/01/19 Ordered By: Brad Lopez Referrals: Brad Lopez MD [Physician] - 12/16/19 2:30 pm Discharge Diet: Advance as tolerated Activity Restrictions/Additional Instructions: 1. Up and walking as tolerated. 2. Ok to shower in 48 hours after surgery. 3. Remove Dermabond dressing in 7-10 days. 4. Do not lift more than 10 pounds. 5. Do not operate heavy machinery or drive while using pain medications. 6. Advised to return to ER or contact my office if there are any signs of infection like, increasing pain, fevers, chills, redness or drainage of pus. Discharge Attestations Time Spent in Discharge Care*: less than 30 min Quality Metrics Clinical Quality Measures During this hospital stay, did patient experience: None Coding Level of Care Code Acute Shape Hand for Anthony Ryan Diagnoses Status post left hemicolectomy Z90.49
[2019-12-01 17:32] VITALS: BP 142/95; PULSE 84; RESP 16; TEMP 36.8; O2SAT 95
== END 2019-12-01 17:15 | disposition home or self-care (01) | DRG 330 ==
LOC: MEDSURG 14:49
PROVIDERS: Admitting Provider Surgery; PCP Family Medicine; Visit Provider Surgery
PROC: 0DTG4ZZ Resection of Left Large Intestine, Percutaneous Endoscopic Approach (ICD-10-PCS; CPT 44204; principal; 2019-11-28 07:00)
DX: C18.4 Malignant neoplasm of transverse colon (principal); N20.2 Calculus of kidney with calculus of ureter
CPT/HCPCS: 12345; 36415; 51702; 80048; 82378; 85025; 86850; 86900; 88309; 94664; 96372; 96375; 97116; 97161; 97530; C9290; J0131; J0690; J1100; J1650; J1885; J2175; J2250; J2270; J2405; J2704; J2710; J3010; J3490; J7030; S0030

== ENCOUNTER 2020-01-01 13:24 | Outpatient (CLI) | payer OTHER, SELFPAY ==
--- NOTE | 2020-01-01 17:48 | ONC CON_ITS ---
Dr. Castellanos New Patient Note Patient: Charanjit Mccormick Unit #: [id number]: [id number] Dicatated By: Chris Castellanos M.D.Date of Visit: Jan 01, 2020 Onc MED New Patient/Consult Referring Physician: Dr. CHUNG TOBAR M.D. Chief Complaint: Colon cancer. 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 In March 2019 he had presented to the emergency room with hematochezia. His CT abdomen/pelvis showed mucosal thickening of the distal transverse and proximal descending colon with reported differential to include nonspecific colitis and neoplasm. He was treated empirically with ciprofloxacin and metronidazole. He was initially planned to have further evaluation with colonoscopy, but the procedure was deferred due to restrictions related to the coronavirus pandemic. On 11/14/2019 he returned to the emergency room with complaints of right flank pain radiating into the groin. A repeat CT abdomen/pelvis showed evidence of bilateral nephrolithiasis with an obstructing stone noted in the mid right ureter. Also noted on that study was a segment of abnormal thickening of the distal transverse colon which was felt to be worrisome for malignancy. A few small mildly prominent lymph nodes were noted in the adjacent mesentery. With that finding he was referred to Dr. Tobar. Colonoscopy on 11/27/2019 showed a circumferential obstructing mass in the distal transverse colon. The colonoscope was not able to be traversed beyond the mass. Biopsy was positive for well-differentiated adenocarcinoma. On 11/28/2019 he underwent laparoscopic left hemicolectomy. There was no gross evidence of metastatic disease. Pathology showed moderately differentiated adenocarcinoma measuring 5 x 3.5 x 3 cm. Tumor was noted to invade into the muscularis propria. Margins were uninvolved. There was evidence of lymphovascular invasion. There was involvement in 1 of 12 lymph nodes. There was intact nuclear expression of mismatch repair proteins by IHC. His baseline CEA level was significantly elevated at 162.5 ng/mL. He indicates that he is feeling pretty good generally. He is still on restricted activity following his surgery. He does complain that he sometimes feels tired. His ECOG score is 2. He has good appetite. His weight is down about 10 pounds. He does not have fever or night sweats. He does not complain of shortness of breath, cough, or chest pain. He has not been having nausea. He does have some heartburn, which he manages with Nexium as needed. His bowel function is pretty much back to normal. He has had no further blood in the stool. He has noticed that he has a little more urgency with urination. Bladder function is otherwise okay. He sometimes has pain in his neck and/or right shoulder. He has no other joint or bone pain. He tends to have headache with his neck pain. He has a little bit of dizziness, attributable to his blood pressure medication. He has no focal neurologic symptoms. Past Medical History: His medical history includes gastroesophageal reflux disease, hypertension, nephrolithiasis, and seasonal allergies. Past Surgical History: He underwent colonoscopy on 11/29/2019 and he underwent laparoscopic left hemicolectomy on 11/28/2019. Medications: Chlorpheniramine Maleate 1 Tablet (of 4 mg) Oral daily, Lisinopril-hydroCHLOROthiazide 1 Tablet (of 20-25 mg) Oral daily Allergies: No Known Allergies. Social History: Mr. Mccormick is and he is an unknown. Mr. Mccormick no longer smokes. He drinks occasionally. He has indicated exposure to the following products: chewing tobacco and pipe. Mr. Mccormick reports the following support systems: lives with spouse, significant other, family, or friends, lives in own house, supportive family/friends willing to assist with needs, and adequate transportation available for expected visits. His diet consists of regular meals. He indicates his activity level as: regular exercise. He has history of smoking 1 pack of cigarettes daily off and on for 10 to 12 years. He quit smoking a couple of years ago. He still chews tobacco daily. He has just very occasional alcohol use. Family History: Father is still living at approximately age 70 and in reasonably good health. Mother of heart disease at age 65. One brother is also in good health. A maternal aunt had cervical cancer. Review Of Symptoms: Constitutional - He had good energy prior to his surgery. He still has restricted activity following the surgery. He also does feel tired sometimes. He has good appetite. His weight is down about 10 pounds. He does not have fever or night sweats. ECOG score is 2, Eyes - No change in vision, ENMT - He has no hearing loss, but he does complain that his ear is always ringing. He has allergy related sinus symptoms. No mouth sores. No sore throat or difficulty swallowing, Hematologic/Lymphatic - No abnormal bruising, Respiratory - No shortness of breath. No cough. No pleuritic pain or hemoptysis, Cardiovascular - No angina pain. No palpitations, Gastrointestinal - No nausea or vomiting. He sometimes has heartburn. No diarrhea or constipation. He currently does not have blood in the stool or black stools, Genitourinary (M) - No dysuria or hematuria. No urinary frequency. He does have a little more urgency with urination. No incontinence, Musculoskeletal - He has chronic neck pain, Neurologic - He has headache with neck pain. He has a little bit of dizziness with his blood pressure medication. No numbness or tingling. No other focal neurologic symptoms, Psychiatric - He has some anxiety. No depression. No insomnia. Vital Signs: Performed on Jan 01, 2020 14:09: 0, 30.72 (HIGH), 2.22 sq.m, 71.5 in, 98 %, 107 /min (HIGH), 18 /min, 122/77 mm(hg), 98.7 F, and 223.4 lbs (HIGH). Physical Examination: Constitutional - He appears to be in good general health, Eyes - Sclerae nonicteric. Conjunctivae clear, ENMT - No lesions noted in the oral cavity, Neck - No mass or thyromegaly, Hematologic/Lymphatic - No cervical, clavicular, or axillary adenopathy, Respiratory - Lungs are clear with good air movement bilaterally, Cardiovascular - Heart rhythm is regular. There is no murmur, gallop, or rub noted, Abdomen - Soft and non-tender. The incisions appear well-healed. Liver and spleen are not enlarged. There is no abdominal mass or ascites noted and there is no inguinal adenopathy, Back/Spine - No spine or CVA tenderness noted, Extremities - No edema. Pedal pulses are palpable bilaterally, Integumentary - No rashes. No suspicious skin lesions noted, Neurologic - No focal neurologic deficits noted. Impression: 1. 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 His tumor had intact nuclear expression of mismatch repair proteins. 2. He underwent laparoscopic left hemicolectomy on 11/28/2019. He had a significantly elevated preoperative CEA level. His other medical illnesses include: 3. Hypertension. 4. Nephrolithiasis. 5. Seasonal allergies. Plan: The surgical findings and pathology results were reviewed with the patient, and we discussed the clinical implications. His disease has been completely resected, but with lymph node involvement he is at increased risk for recurrence and he would potentially benefit with adjuvant chemotherapy. In this situation I would recommend treatment with 4 cycles of oxaliplatin/Xeloda. I reviewed potential side effects which may include nausea/vomiting, alopecia, fatigue, mucositis, diarrhea, hand/foot syndrome, low blood counts, and neuropathy, among others. He indicates he is willing to proceed with treatment as recommended. I will tentatively plan to have him return in 1 week to begin the first cycle. In the meantime, I will have him complete staging with a chest CT scan, and I also will repeat his baseline laboratory studies including CBC, CMP, and CEA level. If the CEA remains significantly elevated, I will request further staging with PET/CT. Signed By: Chris Castellanos M.D. <<Signature on File>>
== END 2020-01-01 13:25 | disposition home or self-care (01) ==
LOC: ONCMED 13:29
PROVIDERS: PCP Family Medicine; Visit Provider Internal Medicine Medical Oncology
DX: C18.4 Malignant neoplasm of transverse colon (principal); C77.2 Secondary and unspecified malignant neoplasm of intra-abdominal lymph nodes; I10 Essential (primary) hypertension; N20.0 Calculus of kidney; J30.2 Other seasonal allergic rhinitis; Z90.49 Acquired absence of other specified parts of digestive tract; Z87.891 Personal history of nicotine dependence
CPT/HCPCS: 99205

== ENCOUNTER 2020-01-05 10:46 | Outpatient (CLI) | payer OTHER, SELFPAY ==
--- NOTE | 2020-01-05 10:51 | CT_ITS ---
WS: [id number] CT CHEST WITH INTRAVENOUS CONTRAST HISTORY: COLON CANCER TECHNIQUE: Contiguous 5 mm axial imaging performed on the thorax. Coronal and sagittal reformats are submitted. All CT scans at [facility] use at least one of these dose optimization techniq ues: automated exposure control; mA and/or kV adjustment per patient size (includes targeted exams wh ere dose is matched to clinical indication); or iterative reconstruction. CONTRAST: Omnipaque 300; 95 mL IV. DLP: 977.74 mGy.cm COMPARISON: None available. Lungs and central airway: Evaluation of the lung parenchyma is limited by breathing motion artifact. Interstitium is thickened prominent which is probably related to chronic lung disease. No definite pu lmonary nodules or groundglass opacification. Benign granuloma RIGHT upper lobe. Pleura: Normal. No pleural effusion. Heart and pericardium: Normal size heart with no pericardial effusion. Mediastinum and melida: No mediastinum or hilar adenopathy. Vessels: Normal size aortic and pulmonary artery. No coronary artery calcifications. Chest wall and lower neck: No soft tissue masses. Upper abdomen: Hepatic steatosis. No metastatic lesions identified in the liver. Visualized gallbladd er is normal. No adrenal mass. Osseous structures: No destructive process. CT/CT chest w con* [id number] IMPRESSION: 1. No metastatic nodules are noted within the lungs. Study is limited by motio n artifact. 2. Changes of mild interstitial thickening which may be related to history of smoking. 3. No adenopathy.
[2020-01-05] MEDS: iohexol 300 mg/mL 100 mL Btl IV (11:11)
[2020-01-05 11:23] LABS: Basophils # 0.1 10^3/uL (0.0-0.1); Basophils % 0.7 %; Eosinophils # 0.1 10^3/uL (0.0-0.8); Eosinophils % 1.9 %; Hematocrit 45.6 % (42.0-52.0); Hemoglobin 14.6 g/dL (11.7-16.6); Lymphocytes # 1.9 10^3/uL (0.8-4.8); Lymphocytes % 28.4 %; Mean Corpuscular Hemoglobin 26.6 pg (28.0-34.0); Mean Corpuscular Volume 83.1 fL (80-94); Mean Platelet Volume 11.2 fL (7.4-10.4); Monocytes # 0.5 10^3/uL (0.2-0.9); Monocytes % 7.2 %; Neutrophils % 61.5 %; Nucleated Red Blood Cells % 0 %; Platelet Count 191 10^3/cmm (130-400); Red Blood Count 5.49 10^6/uL (4.1-5.3); Red Cell Distribution Width 12.7 % (12.1-15.1); White Blood Count 6.8 10^3/uL (4.0-10.0)
[2020-01-05 11:54] LABS: Carcinoembryonic Antigen 9.6 ng/mL (0.0-4.7)
[2020-01-05 12:06] LABS: Alanine Aminotransferase 41 U/L (0-41); Albumin Level 4.3 g/dL (3.5-5.2); Alkaline Phosphatase 78 IU/L (40-130); Anion Gap 15.2 (5-19); Aspartate Amino Transferase 22 U/L (0-40); Blood Urea Nitrogen 15 mg/dL (6-20); Carbon Dioxide 28 mmol/L (22-29); Chloride 97 mmol/L (98-107); Globulin 2.9 g/dL (1.3-4.6); Glomerular Filtration Rate 71.8 mL/min (90-130); Glucose 87 mg/dL (65-115); Osmolality Calculated 278 mOsm/kg (285-295); Potassium 4.2 mmol/L (3.5-5.1); Sodium 136 mmol/L (136-145); Total Bilirubin 0.4 mg/dL (0.15-1.2); Total Protein 7.2 g/dL (6.6-8.7)
== END 2020-01-05 10:47 | disposition home or self-care (01) ==
LOC: RAD 10:48
PROVIDERS: PCP Family Medicine; Visit Provider Internal Medicine Medical Oncology
DX: C18.4 Malignant neoplasm of transverse colon (principal)
CPT/HCPCS: 36415; 71260; 80053; 82378; 85025

== ENCOUNTER 2020-01-08 09:36 | Outpatient (CLI) | payer OTHER, SELFPAY ==
[2020-01-08] MEDS: dextrose 5% 250 ML 75 ML (09:50)
--- NOTE | 2020-01-16 10:33 | ONC FU_ITS ---
[facility] Patient Note Patient: Charanjit Mccormick Unit #: [id number]: 1970 Dictated By: Chris Castellanos M.D.Date of Visit: Jan 08, 2020 Onc MED Follow-Up/Prog Note Chief Complaint: Colon cancer. 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 In March 2019 he had presented to the emergency room with hematochezia. His CT abdomen/pelvis showed mucosal thickening of the distal transverse and proximal descending colon with reported differential to include nonspecific colitis and neoplasm. He was treated empirically with ciprofloxacin and metronidazole. He was initially planned to have further evaluation with colonoscopy, but the procedure was deferred due to restrictions related to the coronavirus pandemic. On 11/14/2019 he returned to the emergency room with complaints of right flank pain radiating into the groin. A repeat CT abdomen/pelvis showed evidence of bilateral nephrolithiasis with an obstructing stone noted in the mid right ureter. Also noted on that study was a segment of abnormal thickening of the distal transverse colon which was felt to be worrisome for malignancy. A few small mildly prominent lymph nodes were noted in the adjacent mesentery. With that finding he was referred to Dr. Lopez. Colonoscopy on 11/27/2019 showed a circumferential obstructing mass in the distal transverse colon. The colonoscope was not able to be traversed beyond the mass. Biopsy was positive for well-differentiated adenocarcinoma. On 11/28/2019 he underwent laparoscopic left hemicolectomy. There was no gross evidence of metastatic disease. Pathology showed moderately differentiated adenocarcinoma measuring 5 x 3.5 x 3 cm. Tumor was noted to invade into the muscularis propria. Margins were uninvolved. There was evidence of lymphovascular invasion. There was involvement in 1 of 12 lymph nodes. There was intact nuclear expression of mismatch repair proteins by IHC. His baseline CEA level was significantly elevated at 162.5 ng/mL. He did have staging CT of the chest with contrast on 01/05/2020 which did not find any evidence of metastatic nodules within the lungs. There were changes of mild interstitial thickening which may be related to history of smoking. No adenopathy. Mr Mccormick is here today to begin his first cycle of XELOX. He will have oxaliplatin IV and Xeloda orally. He has no new concerns today. He denies any pain. He is healing from surgery well overall. He has not yet returned to work. He denies any fever or chills. He has had no COVID 19 symptoms or known exposure or test pending. He is eating pretty good overall and is being more active around the house. He denies any bowel or bladder concerns. His ECOG is 1. Past Medical History: Gastroesophageal reflux disease Hypertension Nephrolithiasis Seasonal allergies Past Surgical History: Laparoscopic left hemicolectomy in 2019 Colonoscopy in 2019 Allergies: No Known Allergies. Medications: Chlorpheniramine Maleate 1 Tablet (of 4 mg) Oral daily Lisinopril-hydroCHLOROthiazide 1 Tablet (of 20-25 mg) Oral daily Family History: Father is still living at approximately age 70 and in reasonably good health. Mother of heart disease at age 65. One brother is also in good health. A maternal aunt had cervical cancer. Social History: Mr. Mccormick is and he is an unknown. Mr. Mccormick no longer smokes. He drinks occasionally. He has indicated exposure to the following products: chewing tobacco and pipe. Mr. Mccormick reports the following support systems: lives with spouse, significant other, family, or friends, lives in own house, supportive family/friends willing to assist with needs, and adequate transportation available for expected visits. His diet consists of regular meals. He indicates his activity level as: regular exercise. He has history of smoking 1 pack of cigarettes daily off and on for 10 to 12 years. He quit smoking a couple of years ago. He still chews tobacco daily. He has just very occasional alcohol use. Review Of Symptoms: Constitutional Denies fevers, chills, night sweats, excessive fatigue or weight loss. Allergic/Immunologic No reactions. Eyes Denies significant visual changes. No diplopia. No amaurosis. ENMT Denies changes in hearing, sore throat, mouth sores, difficulty or changes in swallowing ability, and/or sinus drainage. Endocrine No diabetes, thyroid disease or hormone replacement. Denies hot flashes or night sweats. Hematologic/Lymphatic Denies easy bruising or bleeding. The patient denies any tender or palpable lymph nodes. Respiratory Denies dyspnea on exertion, chest pain, cough or hemoptysis. Denies orthopnea. Cardiovascular Denies anginal chest pain, palpitations or orthopnea. Gastrointestinal Denies nausea, vomiting, diarrhea, GI bleeding, or constipation. Denies change in bowel habits and/or stool color, no heartburn or early satiety. Genitourinary (M) Denies hematuria, dysuria, increased frequency, urgency, hesitancy or incontinence. Musculoskeletal Denies joint pain, swelling or redness. No decreased range of motion. Integumentary Denies chronic rashes, inflammation, ulcerations or skin changes. Neurologic Denies headache, blurred vision, and no areas of focal weakness or numbness. Normal gait. No sensory problems. Psychiatric Denies insomnia, depression, autumn or mood swings. Vital Signs: Performed on Jan 08, 2020 10:10 Height - 71.50 in Weight - 225.4 lbs (HIGH) BSA - 2.23 sq.m BMI - 31.00 (HIGH) Temperature - 98.6 F Pulse - 77 /min Respiration - 18 /min BP - 117/77 mm(hg) O2 Sat - 99 % Pain - 0,1 - No physically strenuous activity, but ambulatory and able to carry out light or sedentary work (e.g. office work, light house work). (ECOG) Physical Examination: Constitutional Alert, oriented, no acute distress. Skin pink, warm and dry. Head Normocephalic; atraumatic. Eyes Conjunctivae and sclerae are clear and without icterus. Pupils are reactive and equal. Neck Supple without masses or thyromegaly. No jugular venous distension. Hematologic/Lymphatic No petechiae or purpura. No tender or palpable lymph nodes in the cervical or supraclavicular areas. Respiratory Lungs are clear to auscultation without rhonchi or wheezing. Cardiovascular Regular rate and rhythm of heart without murmurs,clicks, gallops or rubs. Back/Spine Non-tender to palpation. Extremities No visible deformities, no cyanosis, clubbing or edema. Musculoskeletal No tenderness or swelling, normal range of motion without obvious weakness. Integumentary No rashes or lesions. Neurologic No sensory or motor deficits, normal cerebellar function, normal gait. Psychiatric Alert and oriented times three. Coherent speech. Verbalizes understanding of our discussions today. Laboratory: Impression: 1. 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 His tumor had intact nuclear expression of mismatch repair proteins. 2. He underwent laparoscopic left hemicolectomy on 11/28/2019. He had a significantly elevated preoperative CEA level. His other medical illnesses include: 3. Hypertension. 4. Nephrolithiasis. 5. Seasonal allergies. The surgical findings and pathology results were reviewed with the patient, as well as the clinical implications per Dr Castellanos. His disease has been completely resected, but with lymph node involvement he is at increased risk for recurrence and he would potentially benefit with adjuvant chemotherapy. In this situation it was recommend treatment with 4 cycles of oxaliplatin/Xeloda. He indicated he was willing to proceed with treatment as recommended. Dr Castellanos did request that he complete staging with a chest CT scan, and repeat his baseline laboratory studies including CBC, CMP, and CEA level. If the CEA remains significantly elevated, Dr Castellanos would plan to request further staging with PET/CT. Mr Mccormick is here today to began his first cycle of XELOX. Plan: 1. Proceed with cycle 1 day 1 oxaliplatin/Xeloda. 2. Xeloda dose is 2150 mg BID 14 days on and 7 days off. He will start today. 3. Compazine and Ativan prn antiemetics at home. 4. Imodium for diarrhea as needed. 5. Labs from 01/05/2020 were reviewed in detail and discussed with Mr Mccormick and a copy was given to him. WBC 6.8, HGB 14.6, platelets 191,000. Creatinine 1.1, LFT's normal. CEA 9.6. 6. CEA is dramatically improved @ 9.6-baseline was 162. 7. CT of the chest from 01/05/2020 was normal and did not report any evidence of metastatic disease. 8. Plan for followup in 1 week [address] coordinate with Dr John tellez. 9. CBC, CMP weekly and followup in 3 weeks for consideration of cycle 2 XELOX. 10. The patient was informed of chemotherapy plan and specific drugs were discussed. We also discussed how chemotherapy works and identified common side effects including alopecia; myelosuppression-including neutropenia, anemia, thrombocytopenia; peripheral neuropathy; fatigue; nausea; diarrhea; constipation; bleeding or bruising; skin changes; mouth sores; drug hypersensitivity/allergic reactions or anaphylaxis and extravasation. They have also been informed how to contact the clinic with side effects or symptoms, including but not limited to fever greater than 100.4???, chills, sore throat, bleeding or bruising that is not explained or mouth sores, cough, nasal discharge, diarrhea, constipation, nausea and/or vomiting not relieved with medications on hand at home, as well as any other concern or question they may have. Our hours are 8:00 a.m. to 4:30 p.m. on Sunday through and 8-12:00 on Sunday. 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 We have also discussed potential long-term side effects of chemotherapy including secondary cancers, infertility, pulmonary complications, cardiac complications, and again peripheral neuropathy. We have discussed that they certainly need to let us know before taking any antioxidants or herbal or further dietary supplements, as we are unsure of how these agents react with chemotherapy and we request that they avoid these products for now. They were informed that it is okay to take multivitamins at normal doses. They verbally state that they understand to take all medications as directed by their healthcare provider unless otherwise indicated. They also verbalized understanding to leave the pressure dressing on the intravenous administration site for at least two hours after treatment. Instructions for oral care with baking soda and salt water rinses as well as a guide for use of [id number] medication were provided with the treatment plan. They have been given a written patient treatment plan, of which a copy is in the chart, as well as specific drug information. They have no questions and verbalized understanding and are willing to proceed with chemotherapy at this time. The majority of this visit was spent in face to face communication with this patient in regards to the plan of care, side effect identification and management. Signed By: HARINDER Shook, LIZET Castellanos M.D. <<Signature on File>>
== END 2020-01-08 09:37 | disposition home or self-care (01) ==
LOC: ONCMED 09:37
PROVIDERS: PCP Family Medicine; Visit Provider Nurse Practitioner
DX: Z51.11 Encounter for antineoplastic chemotherapy (principal); C18.4 Malignant neoplasm of transverse colon; C77.2 Secondary and unspecified malignant neoplasm of intra-abdominal lymph nodes; R97.0 Elevated carcinoembryonic antigen [CEA]; I10 Essential (primary) hypertension; J30.2 Other seasonal allergic rhinitis; Z79.899 Other long term (current) drug therapy; Z90.49 Acquired absence of other specified parts of digestive tract; Z87.442 Personal history of urinary calculi; Z87.891 Personal history of nicotine dependence
CPT/HCPCS: 96367; 96413; 96415; 99214; J1100; J2469; J9263

== ENCOUNTER 2020-01-16 05:52 | Outpatient (CLI) | payer OTHER, SELFPAY ==
[2020-01-16 10:14] LABS: Basophils % 0.6 %; Eosinophils # 0.3 10^3/uL (0.0-0.8); Eosinophils % 4.6 %; Hematocrit 42.4 % (42.0-52.0); Hemoglobin 13.9 g/dL (11.7-16.6); Lymphocytes # 1.6 10^3/uL (0.8-4.8); Lymphocytes % 24.7 %; Mean Corpuscular HGB Conc 32.8 g/dL (30.0-36.0); Mean Corpuscular Volume 82.5 fL (80-94); Mean Platelet Volume 11.1 fL (7.4-10.4); Monocytes # 0.4 10^3/uL (0.2-0.9); Monocytes % 6.4 %; Neutrophils # 4.13 10^3/uL (1.8-7.7); Neutrophils % 63.4 %; Nucleated Red Blood Cells % 0 %; Platelet Count 254 10^3/cmm (130-400); Red Blood Count 5.14 10^6/uL (4.1-5.3); Red Cell Distribution Width 12.4 % (12.1-15.1); White Blood Count 6.5 10^3/uL (4.0-10.0)
[2020-01-16 10:38] LABS: Alanine Aminotransferase 29 U/L (0-41); Albumin Level 4.2 g/dL (3.5-5.2); Alkaline Phosphatase 75 IU/L (40-130); Anion Gap 11.6 (5-19); Aspartate Amino Transferase 21 U/L (0-40); Blood Urea Nitrogen 10 mg/dL (6-20); Calcium 9.3 mg/dL (8.5-10.5); Carbon Dioxide 31 mmol/L (22-29); Chloride 98 mmol/L (98-107); Globulin 2.9 g/dL (1.3-4.6); Glomerular Filtration Rate 71.4 mL/min (90-130); Glucose 128 mg/dL (65-115); Osmolality Calculated 285 mOsm/kg (285-295); Potassium 3.6 mmol/L (3.5-5.1); Sodium 137 mmol/L (136-145); Total Bilirubin 0.3 mg/dL (0.15-1.2); Total Protein 7.1 g/dL (6.6-8.7)
--- NOTE | 2020-01-24 23:45 | ONC FU_ITS ---
[facility] Patient Note Patient: Charanjit Mccormick Unit #: [id number]: 1970 Dictated By: Ministerio ShookDate of Visit: Jan 16, 2020 Onc MED Follow-Up/Prog Note Chief Complaint: Colon cancer. 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 In March 2019 he had presented to the emergency room with hematochezia. His CT abdomen/pelvis showed mucosal thickening of the distal transverse and proximal descending colon with reported differential to include nonspecific colitis and neoplasm. He was treated empirically with ciprofloxacin and metronidazole. He was initially planned to have further evaluation with colonoscopy, but the procedure was deferred due to restrictions related to the coronavirus pandemic. On 11/14/2019 he returned to the emergency room with complaints of right flank pain radiating into the groin. A repeat CT abdomen/pelvis showed evidence of bilateral nephrolithiasis with an obstructing stone noted in the mid right ureter. Also noted on that study was a segment of abnormal thickening of the distal transverse colon which was felt to be worrisome for malignancy. A few small mildly prominent lymph nodes were noted in the adjacent mesentery. With that finding he was referred to Dr. Lopez. Colonoscopy on 11/27/2019 showed a circumferential obstructing mass in the distal transverse colon. The colonoscope was not able to be traversed beyond the mass. Biopsy was positive for well-differentiated adenocarcinoma. On 11/28/2019 he underwent laparoscopic left hemicolectomy. There was no gross evidence of metastatic disease. Pathology showed moderately differentiated adenocarcinoma measuring 5 x 3.5 x 3 cm. Tumor was noted to invade into the muscularis propria. Margins were uninvolved. There was evidence of lymphovascular invasion. There was involvement in 1 of 12 lymph nodes. There was intact nuclear expression of mismatch repair proteins by IHC. His baseline CEA level was significantly elevated at 162.5 ng/mL. He did have staging CT of the chest with contrast on 01/05/2020 which did not find any evidence of metastatic nodules within the lungs. There were changes of mild interstitial thickening which may be related to history of smoking. No adenopathy. Mr Mccormick is here today FOR DAY 8 of cycle 1 of XELOX. He did have oxaliplatin IV and started Xeloda orally on 01/09/2020. He has tolerated it well overall. 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 He states he noticed it when he was trying to drink something cold. It is improving. He states he is able to drink cooler things now. He has not drinking ice cold products yet. He has noticed some tingling in his fingers but states it is getting better every day. He denies any nausea or vomiting. He has had no diarrhea. He denies any skin peeling of his hands and feet. He states is eating good. He states his only concern since last visit is that his significant other has decided to end the relationship out of the blue . He seems to be coping with this well. He denies any depression. He does see Dr. Lopez later today and hopefully will be released to return to work . He denies any pain. He denies any fever or chills. He has had no COVID 19 symptoms or known exposure or test pending. He is eating pretty good overall and is being more active around the house. He denies any bowel or bladder concerns. His ECOG is 0. Past Medical History: Gastroesophageal reflux disease Hypertension Nephrolithiasis Seasonal allergies Past Surgical History: Laparoscopic left hemicolectomy in 2019 Colonoscopy in 2019 Allergies: No Known Allergies. Medications: Chlorpheniramine Maleate 1 Tablet (of 4 mg) Oral daily Lisinopril-hydroCHLOROthiazide 1 Tablet (of 20-25 mg) Oral daily LORazepam 1 Tablet (of 0.5 mg) Oral t.i.d. Family History: Father is still living at approximately age 70 and in reasonably good health. Mother of heart disease at age 65. One brother is also in good health. A maternal aunt had cervical cancer. Social History: Mr. Mccormick is and he is an unknown. Mr. Mccormick no longer smokes. He drinks occasionally. He has indicated exposure to the following products: chewing tobacco and pipe. Mr. Mccormick reports the following support systems: lives with spouse, significant other, family, or friends, lives in own house, supportive family/friends willing to assist with needs, and adequate transportation available for expected visits. His diet consists of regular meals. He indicates his activity level as: regular exercise. He has history of smoking 1 pack of cigarettes daily off and on for 10 to 12 years. He quit smoking a couple of years ago. He still chews tobacco daily. He has just very occasional alcohol use. Review Of Symptoms: Constitutional Denies fevers, chills, night sweats, excessive fatigue or weight loss. Allergic/Immunologic No reactions. Eyes Denies significant visual changes. No diplopia. No amaurosis. ENMT Denies changes in hearing, sore throat, mouth sores, difficulty or changes in swallowing ability, and/or sinus drainage. Endocrine No diabetes, thyroid disease or hormone replacement. Denies hot flashes or night sweats. Hematologic/Lymphatic Denies easy bruising or bleeding. The patient denies any tender or palpable lymph nodes. Respiratory Denies dyspnea on exertion, chest pain, cough or hemoptysis. Denies orthopnea. Cardiovascular Denies anginal chest pain, palpitations or orthopnea. Gastrointestinal Denies nausea, vomiting, diarrhea, GI bleeding, or constipation. Denies change in bowel habits and/or stool color, no heartburn or early satiety. Genitourinary (M) Denies hematuria, dysuria, increased frequency, urgency, hesitancy or incontinence. Musculoskeletal Denies joint pain, swelling or redness. No decreased range of motion. Integumentary Denies chronic rashes, inflammation, ulcerations or skin changes. Neurologic Denies headache, blurred vision, and no areas of focal weakness or numbness. Normal gait. No sensory problems. Psychiatric Denies insomnia, depression, autumn or mood swings. Vital Signs: Performed on Jan 16, 2020 11:14 Height - 71.50 in Weight - 223.0 lbs (LOW) BSA - 2.22 sq.m BMI - 30.67 (HIGH) Temperature - 97.8 F (LOW) Pulse - 94 /min Respiration - 20 /min BP - 117/73 mm(hg) O2 Sat - 98 % Pain - 0,0 - Fully active, able to carry on all predisease activities without restrictions. (ECOG) Physical Examination: Constitutional Alert, oriented, no acute distress. Skin pink, warm and dry. Head Normocephalic; atraumatic. Eyes Conjunctivae and sclerae are clear and without icterus. Pupils are reactive and equal. Neck Supple without masses or thyromegaly. No jugular venous distension. Hematologic/Lymphatic No petechiae or purpura. No tender or palpable lymph nodes in the cervical or supraclavicular areas. Respiratory Lungs are clear to auscultation without rhonchi or wheezing. Cardiovascular Regular rate and rhythm of heart without murmurs,clicks, gallops or rubs. Back/Spine Non-tender to palpation. Extremities No visible deformities, no cyanosis, clubbing or edema. Musculoskeletal No tenderness or swelling, normal range of motion without obvious weakness. Integumentary No rashes or lesions. Neurologic No sensory or motor deficits, normal cerebellar function, normal gait. Psychiatric Alert and oriented times three. Coherent speech. Verbalizes understanding of our discussions today. Laboratory:Test performed on Jan 16, 2020 09:55 Sodium 137 mmol/L Potassium 3.6 mmol/L Chloride 98 mmol/L CO2 31 mmol/L Anion Gap 11.6 BUN 10 mg/dL Creatinine 1.1 mg/dL Cr Clearance (Est) 117.7100 mL/min eGFR 71.4 mL/min Glucose 128 mg/dL Osmolality - Calculated 285 mOsm/kg Calcium 9.3 mg/dL Protein, Total 7.1 g/dL Albumin 4.2 g/dL Globulin 2.9 g/dL Bilirubin, Total 0.3 mg/dL ALT (SGPT) 29 U/L AST (SGOT) 21 U/L Alkaline Phosphatase 75 IU/L WBC 6.5 10 3/uL RBC 5.14 10 6/uL HGB 13.9 g/dL HCT 42.4 % MCV 82.5 fL MCH 27.0 pg MCHC 32.8 g/dL RDW 12.4 % Platelet Count 254 10 3/cmm MPV 11.1 fL Neutrophils 4.13 10 3/uL Lymphocytes 1.6 10 3/uL Monocytes 0.4 10 3/uL Eosinophils 0.3 10 3/uL Basophils 0.0 10 3/uL Neutrophil % 63.4 % Lymphocyte % 24.7 % Monocyte % 6.4 % Eosinophil % 4.6 % Basophils % 0.6 % NRBC % 0 % Test performed on Jan 05, 2020 11:17 CEA 9.6 ng/mL Impression: 1. 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 His tumor had intact nuclear expression of mismatch repair proteins. 2. He underwent laparoscopic left hemicolectomy on 11/28/2019. He had a significantly elevated preoperative CEA level. His other medical illnesses include: 3. Hypertension. 4. Nephrolithiasis. 5. Seasonal allergies. The surgical findings and pathology results were reviewed with the patient, as well as the clinical implications per Dr Castellanos. His disease has been completely resected, but with lymph node involvement he is at increased risk for recurrence and he would potentially benefit with adjuvant chemotherapy. In this situation it was recommend treatment with 4 cycles of oxaliplatin/Xeloda. He indicated he was willing to proceed with treatment as recommended. Dr Castellanos did request that he complete staging with a chest CT scan, and repeat his baseline laboratory studies including CBC, CMP, and CEA level. If the CEA remains significantly elevated, Dr Castellanos would plan to request further staging with PET/CT. Mr Mccormick began his first cycle of XELOX on 01/09/2020. He is tolerating it well overall. Plan: 1. Proceed with cycle 1 day 8-21 oxaliplatin/Xeloda. 2. Xeloda dose is 2150 mg BID 14 days on and 7 days off. He started the Xeloda on 01/09/2020. 3. Compazine and Ativan prn antiemetics at home. 4. Imodium for diarrhea as needed. 5. Labs from 01/15/2020 were reviewed in detail and discussed with Mr Mccormick and a copy was given to him. WBC 6.5, HGB 13.9, platelets 254,000. Creatinine 1.1, LFT's normal. 6. CEA is dramatically improved @ 9.6-baseline was 162. 7. CT of the chest from 01/05/2020 was normal and did not report any evidence of metastatic disease. 8. weekly interim labs. 9. CBC, CMP weekly and followup in 2 weeks for consideration of cycle 2 XELOX. 10. Mr Mccormick was encouraged to contact us in the interim if questions or problems arise. Signed By: Venita Shook, AOP Chris Castellanos MD <<Signature on File>>
== END 2020-01-16 05:53 | disposition home or self-care (01) ==
PROVIDERS: PCP Family Medicine; Visit Provider Nurse Practitioner
DX: C18.4 Malignant neoplasm of transverse colon (principal); I10 Essential (primary) hypertension; N20.0 Calculus of kidney; J30.2 Other seasonal allergic rhinitis; Z79.899 Other long term (current) drug therapy
CPT/HCPCS: 36415; 80053; 85025; 99215

== ENCOUNTER 2020-01-29 05:56 | Outpatient (CLI) | payer OTHER, SELFPAY ==
[2020-01-29 10:03] LABS: Basophils % 0.6 %; Eosinophils # 0.1 10^3/uL (0.0-0.8); Eosinophils % 2.2 %; Hematocrit 47.4 % (42.0-52.0); Hemoglobin 15.2 g/dL (11.7-16.6); Lymphocytes # 1.7 10^3/uL (0.8-4.8); Lymphocytes % 33.4 %; Mean Corpuscular HGB Conc 32.1 g/dL (30.0-36.0); Mean Corpuscular Hemoglobin 27.3 pg (28.0-34.0); Mean Corpuscular Volume 85.1 fL (80-94); Mean Platelet Volume 10.6 fL (7.4-10.4); Monocytes # 0.4 10^3/uL (0.2-0.9); Monocytes % 8.7 %; Neutrophils # 2.77 10^3/uL (1.8-7.7); Neutrophils % 54.7 %; Nucleated Red Blood Cells % 0 %; Platelet Count 247 10^3/cmm (130-400); Red Blood Count 5.57 10^6/uL (4.1-5.3); Red Cell Distribution Width 15.7 % (12.1-15.1); White Blood Count 5.1 10^3/uL (4.0-10.0)
[2020-01-29 10:24] LABS: Alanine Aminotransferase 23 U/L (0-41); Albumin Level 4.4 g/dL (3.5-5.2); Alkaline Phosphatase 84 IU/L (40-130); Anion Gap 14.7 (5-19); Aspartate Amino Transferase 25 U/L (0-40); Blood Urea Nitrogen 12 mg/dL (6-20); Carbon Dioxide 24 mmol/L (22-29); Chloride 101 mmol/L (98-107); Globulin 2.5 g/dL (1.3-4.6); Glomerular Filtration Rate 79.8 mL/min (90-130); Glucose 141 mg/dL (65-115); Osmolality Calculated 284 mOsm/kg (285-295); Potassium 3.7 mmol/L (3.5-5.1); Sodium 136 mmol/L (136-145); Total Bilirubin 0.4 mg/dL (0.15-1.2); Total Protein 6.9 g/dL (6.6-8.7)
[2020-01-29 10:30] LABS: Carcinoembryonic Antigen 3.6 ng/mL (0.0-4.7)
[2020-01-29 10:41] LABS: Magnesium 2.3 mg/dL (1.7-2.3)
[2020-01-29] MEDS: dextrose 5% 250 ML 75 ML (12:05)
--- NOTE | 2020-02-05 14:10 | ONC FU_ITS ---
[facility] Patient Note Patient: Charanjit Mccormick Unit #: [id number]: 1970 Dictated By: Ministerio ShookDate of Visit: Jan 29, 2020 Onc MED Follow-Up/Prog Note Chief Complaint: Colon cancer. 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 In March 2019 he had presented to the emergency room with hematochezia. His CT abdomen/pelvis showed mucosal thickening of the distal transverse and proximal descending colon with reported differential to include nonspecific colitis and neoplasm. He was treated empirically with ciprofloxacin and metronidazole. He was initially planned to have further evaluation with colonoscopy, but the procedure was deferred due to restrictions related to the coronavirus pandemic. On 11/14/2019 he returned to the emergency room with complaints of right flank pain radiating into the groin. A repeat CT abdomen/pelvis showed evidence of bilateral nephrolithiasis with an obstructing stone noted in the mid right ureter. Also noted on that study was a segment of abnormal thickening of the distal transverse colon which was felt to be worrisome for malignancy. A few small mildly prominent lymph nodes were noted in the adjacent mesentery. With that finding he was referred to Dr. Lopez. Colonoscopy on 11/27/2019 showed a circumferential obstructing mass in the distal transverse colon. The colonoscope was not able to be traversed beyond the mass. Biopsy was positive for well-differentiated adenocarcinoma. On 11/28/2019 he underwent laparoscopic left hemicolectomy. There was no gross evidence of metastatic disease. Pathology showed moderately differentiated adenocarcinoma measuring 5 x 3.5 x 3 cm. Tumor was noted to invade into the muscularis propria. Margins were uninvolved. There was evidence of lymphovascular invasion. There was involvement in 1 of 12 lymph nodes. There was intact nuclear expression of mismatch repair proteins by IHC. His baseline CEA level was significantly elevated at 162.5 ng/mL. He did have staging CT of the chest with contrast on 01/05/2020 which did not find any evidence of metastatic nodules within the lungs. There were changes of mild interstitial thickening which may be related to history of smoking. No adenopathy. Mr Mccormick is here today for day 1 of cycle 2 of XELOX. He did have oxaliplatin IV and started Xeloda orally on 01/09/2020. He has tolerated it well overall. 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 He states he noticed it when he was trying to drink something cold. It has resolved. He states he did have some left arm pain after infusion of the oxaliplatin. He states the first night he was pretty intense but has since then settled down. He has returned to working full-time on the [employer]. 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 He states has been able to go deer hunting and actually was able to get a deer and has had it processed. He has been eating a lot of vension over the last week and states he is doing well. He has returned to the gym to start working out again. He denies nausea or vomiting. His energy is fair. He denies any fever or chills. He denies any new pain. He states his bowels have been good for him. He has no new concerns today. His ECOG is 0. Past Medical History: Gastroesophageal reflux disease Hypertension Nephrolithiasis Seasonal allergies Past Surgical History: Laparoscopic left hemicolectomy in 2019 Colonoscopy in 2020 Allergies: No Known Allergies. Medications: Lisinopril-hydroCHLOROthiazide 1 Tablet (of 20-25 mg) Oral daily LORazepam 1 Tablet (of 0.5 mg) Oral t.i.d. Multivitamin 1 Tablet Oral daily Pepcid 1 Tablet (of 20 mg) Oral daily Xyzal 1 Tablet (of 5 mg) Oral daily Family History: Father is still living at approximately age 70 and in reasonably good health. Mother of heart disease at age 65. One brother is also in good health. A maternal aunt had cervical cancer. Social History: Mr. Mccormick is and he is an unknown. Mr. Mccormick no longer smokes. He drinks occasionally. He has indicated exposure to the following products: chewing tobacco and pipe. Mr. Mccormick reports the following support systems: lives with spouse, significant other, family, or friends, lives in own house, supportive family/friends willing to assist with needs, and adequate transportation available for expected visits. His diet consists of regular meals. He indicates his activity level as: regular exercise. He has history of smoking 1 pack of cigarettes daily off and on for 10 to 12 years. He quit smoking a couple of years ago. He still chews tobacco daily. He has just very occasional alcohol use. Review Of Symptoms: Constitutional Denies fevers, chills, night sweats, excessive fatigue or weight loss. Allergic/Immunologic No reactions. Eyes Denies significant visual changes. No diplopia. No amaurosis. ENMT Denies changes in hearing, sore throat, mouth sores, difficulty or changes in swallowing ability, and/or sinus drainage. Endocrine No diabetes, thyroid disease or hormone replacement. Denies hot flashes or night sweats. Hematologic/Lymphatic Denies easy bruising or bleeding. The patient denies any tender or palpable lymph nodes. Respiratory Denies dyspnea on exertion, chest pain, cough or hemoptysis. Denies orthopnea. Cardiovascular Denies anginal chest pain, palpitations or orthopnea. Gastrointestinal Denies nausea, vomiting, diarrhea, GI bleeding, or constipation. Denies change in bowel habits and/or stool color, no heartburn or early satiety. Genitourinary (M) Denies hematuria, dysuria, increased frequency, urgency, hesitancy or incontinence. Musculoskeletal Denies joint pain, swelling or redness. No decreased range of motion. Some left arm pain post chemo-see above Integumentary Denies chronic rashes, inflammation, ulcerations or skin changes. Neurologic Denies headache, blurred vision, and no areas of focal weakness or numbness. Normal gait. No sensory problems. Psychiatric Denies insomnia, depression, autumn or mood swings. Vital Signs: Performed on Jan 29, 2020 11:01 Height - 71.50 in Weight - 225.6 lbs (HIGH) BSA - 2.23 sq.m BMI - 31.03 (HIGH) Temperature - 98.4 F Pulse - 72 /min Respiration - 18 /min BP - 114/67 mm(hg) O2 Sat - 97 % Pain - 0,0 - Fully active, able to carry on all predisease activities without restrictions. (ECOG) Physical Examination: Constitutional Alert, oriented, no acute distress. Skin pink, warm and dry. Head Normocephalic; atraumatic. Eyes Conjunctivae and sclerae are clear and without icterus. Pupils are reactive and equal. Neck Supple without masses or thyromegaly. No jugular venous distension. Hematologic/Lymphatic No petechiae or purpura. No tender or palpable lymph nodes in the cervical or supraclavicular areas. Respiratory Lungs are clear to auscultation without rhonchi or wheezing. Cardiovascular Regular rate and rhythm of heart without murmurs,clicks, gallops or rubs. Back/Spine Non-tender to palpation. Extremities No visible deformities, no cyanosis, clubbing or edema. Musculoskeletal No tenderness or swelling, normal range of motion without obvious weakness. Integumentary No rashes or lesions. Neurologic No sensory or motor deficits, normal cerebellar function, normal gait. Psychiatric Alert and oriented times three. Coherent speech. Verbalizes understanding of our discussions today. Laboratory:Test performed on Jan 29, 2020 09:24 Magnesium 2.3 mg/dL Sodium 136 mmol/L Potassium 3.7 mmol/L Chloride 101 mmol/L CO2 24 mmol/L Anion Gap 14.7 BUN 12 mg/dL Creatinine 1.0 mg/dL Cr Clearance (Est) 129.4800 mL/min eGFR 79.8 mL/min Glucose 141 mg/dL Osmolality - Calculated 284 mOsm/kg Calcium 9.0 mg/dL Protein, Total 6.9 g/dL Albumin 4.4 g/dL Globulin 2.5 g/dL Bilirubin, Total 0.4 mg/dL ALT (SGPT) 23 U/L AST (SGOT) 25 U/L Alkaline Phosphatase 84 IU/L WBC 5.1 10 3/uL RBC 5.57 10 6/uL HGB 15.2 g/dL HCT 47.4 % MCV 85.1 fL MCH 27.3 pg MCHC 32.1 g/dL RDW 15.7 % Platelet Count 247 10 3/cmm MPV 10.6 fL Neutrophils 2.77 10 3/uL Lymphocytes 1.7 10 3/uL Monocytes 0.4 10 3/uL Eosinophils 0.1 10 3/uL Basophils 0.0 10 3/uL Neutrophil % 54.7 % Lymphocyte % 33.4 % Monocyte % 8.7 % Eosinophil % 2.2 % Basophils % 0.6 % NRBC % 0 % CEA 3.6 ng/mL Impression: 1. 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 His tumor had intact nuclear expression of mismatch repair proteins. 2. He underwent laparoscopic left hemicolectomy on 11/28/2019. He had a significantly elevated preoperative CEA level. His other medical illnesses include: 3. Hypertension. 4. Nephrolithiasis. 5. Seasonal allergies. The surgical findings and pathology results were reviewed with the patient, as well as the clinical implications per Dr Castellanos. His disease has been completely resected, but with lymph node involvement he is at increased risk for recurrence and he would potentially benefit with adjuvant chemotherapy. In this situation it was recommend treatment with 4 cycles of oxaliplatin/Xeloda. He indicated he was willing to proceed with treatment as recommended. Dr Castellanos did request that he complete staging with a chest CT scan, and repeat his baseline laboratory studies including CBC, CMP, and CEA level. If the CEA remains significantly elevated, Dr Castellanos would plan to request further staging with PET/CT. Mr Mccormick began his first cycle of XELOX on 01/09/2020. He is tolerating it well overall. Plan: 1. Proceed with cycle 2 day 1 oxaliplatin/Xeloda. 2. Xeloda dose is 2150 mg BID 14 days on and 7 days off. He will the Xeloda today. 3. Compazine and Ativan prn antiemetics at home. 4. Imodium for diarrhea as needed. 5. Labs from 01/29/2020 were reviewed in detail and discussed with Mr Mccormick and a copy was given to him. WBC 5.1, HGB 15.2, platelets 247,000. Creatinine 1.0, LFT's normal. 6. CEA is dramatically improved @ 3.6-baseline was 162. 7. CT of the chest from 01/05/2020 was normal and did not report any evidence of metastatic disease. 8. weekly interim labs. 9. CBC, CMP weekly and followup in 2 weeks for consideration of cycle 3 XELOX. 10. I did send in a Dex taper for possible chemical phlebitis after infusion of oxaliplatin. He has had significant pain with infusion and postinfusion last treatment. The pain is now resolved and there is no redness or irritation noted in the previous IV site. However the last treatment was administered in his left arm and he has access to be administered the chemotherapy in the left arm again today. I have requested that they switch to the right arm next treatment if at all possible. He will call us if he has any concerns. If the dexamethasone does not seem to settle down a chemo induced phlebitis he may need antibiotic therapy as well. He is encouraged to call us if he has any concerns or if any problems/questions arise. Signed By: Ministerio Shook-, CNP Chris Castellanos MD <<Signature on File>>
== END 2020-01-29 05:57 | disposition home or self-care (01) ==
PROVIDERS: Internal Medicine Medical Oncology; PCP Family Medicine; Visit Provider Nurse Practitioner
DX: Z51.11 Encounter for antineoplastic chemotherapy (principal); C18.4 Malignant neoplasm of transverse colon; I80.8 Phlebitis and thrombophlebitis of other sites; T45.1X5D Adverse effect of antineoplastic and immunosuppressive drugs, subsequent encounter; I10 Essential (primary) hypertension; N20.0 Calculus of kidney; J30.2 Other seasonal allergic rhinitis; Z87.891 Personal history of nicotine dependence; Z79.899 Other long term (current) drug therapy
CPT/HCPCS: 80053; 82378; 83735; 85025; 96367; 96413; 96415; 99214; J1100; J2469; J9263

== ENCOUNTER 2020-02-05 06:11 | Outpatient (CLI) | payer OTHER, SELFPAY ==
[2020-02-05 09:12] LABS: Basophils % 0.5 %; Eosinophils # 0.2 10^3/uL (0.0-0.8); Eosinophils % 2.8 %; Hematocrit 45.6 % (42.0-52.0); Hemoglobin 14.7 g/dL (11.7-16.6); Lymphocytes # 2.1 10^3/uL (0.8-4.8); Lymphocytes % 32.8 %; Mean Corpuscular HGB Conc 32.2 g/dL (30.0-36.0); Mean Corpuscular Hemoglobin 27.3 pg (28.0-34.0); Mean Corpuscular Volume 84.8 fL (80-94); Mean Platelet Volume 10.9 fL (7.4-10.4); Monocytes # 0.6 10^3/uL (0.2-0.9); Monocytes % 9.2 %; Neutrophils # 3.51 10^3/uL (1.8-7.7); Neutrophils % 54.5 %; Nucleated Red Blood Cells % 0 %; Platelet Count 164 10^3/cmm (130-400); Red Blood Count 5.38 10^6/uL (4.1-5.3); Red Cell Distribution Width 15.1 % (12.1-15.1); White Blood Count 6.4 10^3/uL (4.0-10.0)
[2020-02-05 09:34] LABS: Alanine Aminotransferase 28 U/L (0-41); Albumin Level 4.4 g/dL (3.5-5.2); Alkaline Phosphatase 82 IU/L (40-130); Anion Gap 14.1 (5-19); Aspartate Amino Transferase 26 U/L (0-40); Blood Urea Nitrogen 15 mg/dL (6-20); Calcium 9.8 mg/dL (8.5-10.5); Carbon Dioxide 28 mmol/L (22-29); Chloride 101 mmol/L (98-107); Globulin 2.5 g/dL (1.3-4.6); Glomerular Filtration Rate 71.4 mL/min (90-130); Glucose 122 mg/dL (65-115); Osmolality Calculated 290 mOsm/kg (285-295); Potassium 4.1 mmol/L (3.5-5.1); Sodium 139 mmol/L (136-145); Total Bilirubin 0.4 mg/dL (0.15-1.2); Total Protein 6.9 g/dL (6.6-8.7)
== END 2020-02-05 06:12 | disposition home or self-care (01) ==
LOC: ONCMED 06:12
PROVIDERS: PCP Family Medicine; Visit Provider Nurse Practitioner
DX: C18.4 Malignant neoplasm of transverse colon (principal); Z51.81 Encounter for therapeutic drug level monitoring; Z79.899 Other long term (current) drug therapy
CPT/HCPCS: 36415; 80053; 85025

== ENCOUNTER 2020-02-12 06:15 | Outpatient (CLI) | payer OTHER, SELFPAY ==
[2020-02-12 09:28] LABS: Basophils % 0.7 %; Eosinophils # 0.1 10^3/uL (0.0-0.8); Eosinophils % 1.4 %; Hemoglobin 14.8 g/dL (11.7-16.6); Lymphocytes # 1.8 10^3/uL (0.8-4.8); Lymphocytes % 32.2 %; Mean Corpuscular HGB Conc 32.9 g/dL (30.0-36.0); Mean Corpuscular Volume 85.2 fL (80-94); Mean Platelet Volume 10.5 fL (7.4-10.4); Monocytes # 0.5 10^3/uL (0.2-0.9); Monocytes % 8.8 %; Neutrophils # 3.23 10^3/uL (1.8-7.7); Neutrophils % 56.7 %; Nucleated Red Blood Cells % 0 %; Platelet Count 151 10^3/cmm (130-400); Red Blood Count 5.28 10^6/uL (4.1-5.3); Red Cell Distribution Width 16.5 % (12.1-15.1); White Blood Count 5.7 10^3/uL (4.0-10.0)
[2020-02-12 09:51] LABS: Alanine Aminotransferase 29 U/L (0-41); Albumin Level 4.5 g/dL (3.5-5.2); Alkaline Phosphatase 78 IU/L (40-130); Anion Gap 14.4 (5-19); Aspartate Amino Transferase 22 U/L (0-40); Blood Urea Nitrogen 16 mg/dL (6-20); Calcium 9.6 mg/dL (8.5-10.5); Carbon Dioxide 26 mmol/L (22-29); Chloride 98 mmol/L (98-107); Globulin 2.6 g/dL (1.3-4.6); Glomerular Filtration Rate 58.9 mL/min (90-130); Glucose 134 mg/dL (65-115); Osmolality Calculated 283 mOsm/kg (285-295); Potassium 3.4 mmol/L (3.5-5.1); Sodium 135 mmol/L (136-145); Total Bilirubin 0.6 mg/dL (0.15-1.2); Total Protein 7.1 g/dL (6.6-8.7)
== END 2020-02-12 06:16 | disposition home or self-care (01) ==
LOC: ONCMED 06:16
PROVIDERS: PCP Family Medicine; Visit Provider Internal Medicine Medical Oncology
DX: C18.4 Malignant neoplasm of transverse colon (principal)
CPT/HCPCS: 36415; 80053; 85025

== ENCOUNTER 2020-02-19 05:52 | Outpatient (RCR) | payer OTHER, SELFPAY ==
[2020-02-19 10:09] LABS: Basophils % 0.4 %; Eosinophils # 0.1 10^3/uL (0.0-0.8); Eosinophils % 2.2 %; Hematocrit 45.3 % (42.0-52.0); Hemoglobin 15.1 g/dL (11.7-16.6); Lymphocytes # 1.6 10^3/uL (0.8-4.8); Lymphocytes % 34.6 %; Mean Corpuscular HGB Conc 33.3 g/dL (30.0-36.0); Mean Corpuscular Hemoglobin 28.8 pg (28.0-34.0); Mean Corpuscular Volume 86.5 fL (80-94); Mean Platelet Volume 10.4 fL (7.4-10.4); Monocytes # 0.4 10^3/uL (0.2-0.9); Monocytes % 8.1 %; Neutrophils % 54.5 %; Nucleated Red Blood Cells % 0 %; Platelet Count 196 10^3/cmm (130-400); Red Blood Count 5.24 10^6/uL (4.1-5.3); Red Cell Distribution Width 18.6 % (12.1-15.1); White Blood Count 4.6 10^3/uL (4.0-10.0)
[2020-02-19 10:28] LABS: Alanine Aminotransferase 22 U/L (0-41); Albumin Level 4.2 g/dL (3.5-5.2); Alkaline Phosphatase 83 IU/L (40-130); Anion Gap 14.5 (5-19); Aspartate Amino Transferase 20 U/L (0-40); Blood Urea Nitrogen 12 mg/dL (6-20); Calcium 9.5 mg/dL (8.5-10.5); Carbon Dioxide 25 mmol/L (22-29); Chloride 102 mmol/L (98-107); Globulin 2.5 g/dL (1.3-4.6); Glomerular Filtration Rate 79.8 mL/min (90-130); Glucose 145 mg/dL (65-115); Osmolality Calculated 288 mOsm/kg (285-295); Potassium 3.5 mmol/L (3.5-5.1); Sodium 138 mmol/L (136-145); Total Bilirubin 0.3 mg/dL (0.15-1.2); Total Protein 6.7 g/dL (6.6-8.7)
[2020-02-19] MEDS: dextrose 5% 250 ML 999 ML IV (12:16)
--- NOTE | 2020-02-22 10:34 | ONC FU_ITS ---
Dr. Castellanos Patient Follow-Up Note Patient: Charanjit Mccormick Unit #: [id number]: 1970 Dicatated By: Chris Castellanos M.D.Date of Visit:Feb 19, 2020 Onc Med Follow-up/Prog Note Chief Complaint: Colon cancer. 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 In March 2019 he had presented to the emergency room with hematochezia. His CT abdomen/pelvis showed mucosal thickening of the distal transverse and proximal descending colon with reported differential to include nonspecific colitis and neoplasm. He was treated empirically with ciprofloxacin and metronidazole. He was initially planned to have further evaluation with colonoscopy, but the procedure was deferred due to restrictions related to the coronavirus pandemic. On 11/14/2019 he returned to the emergency room with complaints of right flank pain radiating into the groin. A repeat CT abdomen/pelvis showed evidence of bilateral nephrolithiasis with an obstructing stone noted in the mid right ureter. Also noted on that study was a segment of abnormal thickening of the distal transverse colon which was felt to be worrisome for malignancy. A few small mildly prominent lymph nodes were noted in the adjacent mesentery. With that finding he was referred to Dr. Lopez. Colonoscopy on 11/27/2019 showed a circumferential obstructing mass in the distal transverse colon. The colonoscope was not able to be traversed beyond the mass. Biopsy was positive for well-differentiated adenocarcinoma. On 11/28/2019 he underwent laparoscopic left hemicolectomy. There was no gross evidence of metastatic disease. Pathology showed moderately differentiated adenocarcinoma measuring 5 x 3.5 x 3 cm. Tumor was noted to invade into the muscularis propria. Margins were uninvolved. There was evidence of lymphovascular invasion. There was involvement in 1 of 12 lymph nodes. There was intact nuclear expression of mismatch repair proteins by IHC. His baseline CEA level was significantly elevated at 162.5 ng/mL. I had seen him initially on 01/01/2020. In the setting of stage IIIA disease, he was recommended to undergo adjuvant chemotherapy with 4 cycles of oxaliplatin/Xeloda. His other medical illnesses include hypertension, GERD, and seasonal allergies. He does have a history of nephrolithiasis. He has a history of smoking 1 pack of cigarettes daily off and on for 10 to 12 years. He quit smoking a couple of years ago, but he still chews tobacco daily. INTERIM HISTORY: He began cycle 1 of oxaliplatin/Xeloda on 01/08/2020. He tolerated that treatment well, and he continued with cycle 2 on 01/29/2020. He is seen for a scheduled visit. He indicates that he was significantly more fatigued following his 2nd cycle, particularly for the first 4 to 5 days. His ECOG score is 1. He still has pretty good appetite. He does not have fever or night sweats. He has had no mouth sores. He did have nausea for the first couple of days and he also reported having heightened gag reflex. His acid reflux has been adequately managed with Pepcid. He says his stools are fairly loose, but he has had just occasional diarrhea. He has no complaints. He has no significant joint or bone pain. He does not complain of headache. He occasionally has dizziness. He also had more neuropathy symptoms following his second cycle, but those had resolved by the third week. Medications: Chlorpheniramine Maleate 1 Tablet (of 4 mg) Oral daily, Lisinopril-hydroCHLOROthiazide 1 Tablet (of 20-25 mg) Oral daily, LORazepam 1 Tablet (of 0.5 mg) Oral t.i.d., Multivitamin 1 Tablet Oral daily, Pepcid 1 Tablet (of 20 mg) Oral daily Allergies: No Known Allergies. Review of Systems: Constitutional - He has had more fatigue following his last treatment, particularly for the first 4 to 5 days. Appetite is still pretty good. He has no fever or night sweats. ECOG score is 1, ENMT - He has seasonal allergies. No mouth sores. No sore throat or difficulty swallowing, Hematologic/Lymphatic - No abnormal bruising or bleeding, Respiratory - No shortness of breath. No cough. No pleuritic pain or hemoptysis, Cardiovascular - No angina pain. No palpitations, Gastrointestinal - He had nausea for the first couple of days and he also reported having heightened gag reflex. His acid reflux is adequately managed with Pepcid. His bowels have been fairly loose, but he has had just occasional diarrhea. No blood in the stool or black stools, Genitourinary (M) - No dysuria or hematuria. No urinary frequency. No urgency or incontinence, Musculoskeletal - No joint or bone pain, Integumentary - No skin rash, Neurologic - No headache. He occasionally has dizziness. He did have more numbness/tingling following his last treatment, but it had resolved by the third week. No other focal neurologic symptoms, Psychiatric - He has some anxiety/depression. No insomnia. Vital Signs: Performed on Feb 19, 2020 11:27 Height - 71.50 in Weight - 228.4 lbs (HIGH) BSA - 2.24 sq.m BMI - 31.41 (HIGH) Temperature - 98.6 F Pulse - 89 /min Respiration - 20 /min BP - 123/74 mm(hg) O2 Sat - 98 % Pain - 0 Physical Examination: Constitutional - He looks good generally, Eyes - Sclerae nonicteric. Conjunctivae clear, ENMT - No lesions noted in the oral cavity, Hematologic/Lymphatic - No cervical, clavicular, or axillary adenopathy, Respiratory - Lungs are clear with good air movement bilaterally, Cardiovascular - Heart rhythm is regular. There is no murmur, gallop, or rub noted, Abdomen - Soft. Liver and spleen are not enlarged. There is no abdominal mass or ascites noted and there is no inguinal adenopathy, Extremities - No edema, Integumentary - No skin eruption. No findings of hand/foot syndrome, Neurologic - No focal neurologic deficits noted. Lab/Imaging: Test performed on Feb 19, 2020 09:56 Sodium 138 mmol/L Potassium 3.5 mmol/L Chloride 102 mmol/L CO2 25 mmol/L Anion Gap 14.5 BUN 12 mg/dL Creatinine 1.0 mg/dL Cr Clearance (Est) 129.4800 mL/min eGFR 79.8 mL/min Glucose 145 mg/dL Osmolality - Calculated 288 mOsm/kg Calcium 9.5 mg/dL Protein, Total 6.7 g/dL Albumin 4.2 g/dL Globulin 2.5 g/dL Bilirubin, Total 0.3 mg/dL ALT (SGPT) 22 U/L AST (SGOT) 20 U/L Alkaline Phosphatase 83 IU/L WBC 4.6 10 3/uL RBC 5.24 10 6/uL HGB 15.1 g/dL HCT 45.3 % MCV 86.5 fL MCH 28.8 pg MCHC 33.3 g/dL RDW 18.6 % Platelet Count 196 10 3/cmm MPV 10.4 fL Neutrophils 2.50 10 3/uL Lymphocytes 1.6 10 3/uL Monocytes 0.4 10 3/uL Eosinophils 0.1 10 3/uL Basophils 0.0 10 3/uL Neutrophil % 54.5 % Lymphocyte % 34.6 % Monocyte % 8.1 % Eosinophil % 2.2 % Basophils % 0.4 % NRBC % 0 % Impression: 1. 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 His tumor had intact nuclear expression of mismatch repair proteins. 2. He underwent laparoscopic left hemicolectomy on 11/28/2019. He had a significantly elevated preoperative CEA level. His other medical illnesses include: 3. Hypertension. 4. Nephrolithiasis. 5. Seasonal allergies. In the setting of stage IIIA disease he was recommended to undergo adjuvant chemotherapy with 4 cycles of oxaliplatin/Xeloda. He began cycle 1 on 01/08/2020. He tolerated that treatment well, and he continued with cycle 2 on 01/29/2020. Following the second cycle, he has had more fatigue and a little more nausea. His neuropathy symptoms also worsened, but those symptoms had resolved by the third week. Overall, he continues to tolerate treatment with acceptable toxicity. Plan: He will proceed now with cycle 3 of oxaliplatin/Xeloda. The dosages remain the same. Blood counts will be monitored weekly. He returns in 3 weeks for his 4th and final cycle of treatment. Signed By: Chris Castellanos M.D. <<Signature on File>>
== END 2020-02-21 23:59 | disposition home or self-care (01) ==
LOC: ONCMED 05:52
PROVIDERS: PCP Family Medicine; Visit Provider Internal Medicine Medical Oncology
DX: Z51.11 Encounter for antineoplastic chemotherapy (principal); C18.4 Malignant neoplasm of transverse colon; C77.2 Secondary and unspecified malignant neoplasm of intra-abdominal lymph nodes; I10 Essential (primary) hypertension; K21.9 Gastro-esophageal reflux disease without esophagitis; F17.220 Nicotine dependence, chewing tobacco, uncomplicated; Z79.899 Other long term (current) drug therapy; Z87.442 Personal history of urinary calculi; Z90.49 Acquired absence of other specified parts of digestive tract
CPT/HCPCS: 80053; 85025; 96367; 96413; 96415; 99214; J1100; J2469; J9263

== ENCOUNTER 2020-02-20 12:06 | Emergency (ER) | payer OTHER, SELFPAY ==
[2020-02-20 12:22] VITALS: BP 128/82; PULSE 113; RESP 18; TEMP 36.7; O2SAT 96; BMI 32.3
[2020-02-20 13:22] LABS: Urine Color Yellow (Yellow)
[2020-02-20 13:23] LABS: Add Urine Microscopic? YES; Bilirubin Urine 1+ (Negative); Blood Urine 3+ (Negative); Glucose Urine UA Norm (Normal); Ketones Urine 1+ (Negative); Leukocyte Esterase Urine Negative (Negative); Nitrate Urine Negative (Negative); Protein Urine 2+ (Negative); RBC Urine >100 /hpf (0-2); Specific Gravity, Urine 1.025 (1.005-1.030); Urine Appearance Cloudy (CLEAR); Urobilinogen Urine 1 mg/dL (Negative); WBC Urine 0-4 /hpf (0-5); pH Urine 5 (5-7)
[2020-02-20 13:24] LABS: Add Urine Culture? Yes; Bacteria Urine 1+ /hpf
--- NOTE | 2020-02-20 13:34 | CT_ITS ---
WS: [id number] CT ABDOMEN AND PELVIS NONCONTRAST HISTORY: flank/abdomen pain TECHNIQUE: Imaging performed through the abdomen and pelvis. Coronal and sagittal reformats are submi tted. All CT scans at [facility] use at least one of these dose optimization techniques: automated exposure control; mA and/or kV adjustment per patient size (includes targeted exams where d ose is matched to clinical indication); or iterative reconstruction. DLP: 1945.88 mGy.cm COMPARISON: 11/14/2019 Lower thorax: Lung bases are clear. Visualized heart is normal. Small hiatal hernia. Liver: Normal size liver. No mass or bile duct dilatation. Gallbladder: Mildly contracted gallbladder. Pancreas: Normal size and attenuation. Normal pancreatic duct. No pancreatitis or mass. Spleen: Normal. Adrenal glands: Normal. No mass. Right kidney: Mild RIGHT hydroureteronephrosis secondary to a 5.3 mm calcification in the distal uret er. There are additional nonobstructing calcifications in the RIGHT renal pelvis. Left kidney: Normal size kidney with nonobstructing calcifications. Ureter is normal size. Aorta: Mild atherosclerosis abdominal aorta with no aneurysm. No free fluid, intraperitoneal air or significant lymphadenopathy. GI tract: Resection of the mid transverse colon from prior neoplasm. There are anastomotic sutures in the mid transverse colon. There is adjacent omental thickening and stranding at the surgical site. N o discrete lymph nodes. There is no obstruction. Abdominal wall: Postsurgical changes along the anterior abdominal wall. Pelvis: Nondistended urinary bladder. No free fluid or adenopathy. Osseous structures: Moderate degenerative disc disease at L5-S1. No osteoblastic or osteolytic bone d isease. CT/CT kidney stone [id number] IMPRESSION: 1. Mild RIGHT hydroureteronephrosis secondary to a 5.3 mm calcification in the distal ureter. 2. Additional bilateral nonobstructing renal stones. 3. Surgical resection of the neoplasm in the transverse colon. Anastomotic sut ures are noted without obstruction. There is adjacent omental thickening which is probably fat necrosis from the prior surgery. Less likely omental neoplastic disease.
--- NOTE | 2020-02-20 13:35 | ED_ITS ---
HPI - Male Genitourinary General: Chief complaint: Urogenital-Male Stated complaint: possible kidney stone Time Seen by Provider: 02/20/20 13:34 History of Present Illness: HPI Narrative: Patient is a 50-year-old male comes to the ED with right flank and right lower pelvic pain. Patient has a past medical history of kidney stones and colon cancer. He just receive chemo treatment yesterday. He says pain started on right flank around the kidney region last night and has since moved down into the lower right pelvis. He says pain is very similar to past kidney stones. He has had some nausea as well, but thinks this could very well be to the chemo treatment yesterday. While here in the ED he says his pain has improved. He now reports having some pain located in his penis and feels like maybe the stone is in his bladder. Associated symptoms: Reports nausea; Deny dysuria, hematuria or vomiting Review of Systems Const: Denies: fever(s), chills or fatigue Eyes: Denies: change in vision or eye discomfort ENMT: Denies: throat pain, odynophagia, nasal discharge or nasal congestion Card: Denies: chest pain, palpitations, edema, swelling of feet/ankles, dyspnea on exertion or orthopnea Resp: Denies: dyspnea, productive cough or non-productive cough GI: Reports: nausea; Denies: abdominal pain, vomiting, diarrhea, constipation or hematochezia : Reports: flank pain (right flank pain last night, but it has since resolved ); Denies: difficulty urinating, dysuria or hematuria Musc: Denies: neck pain, back pain or extremity swelling Skin/Breast: Denies: rash or new lesions Neuro: Denies: headache(s), numbness in extremities or weakness in extremities PFS ED PFSH: Medical History Cancer of transverse colon Ureteral calculus, right Surgical History History of oral surgery Status post colonoscopy with polypectomy (11/27/19) Status post left hemicolectomy (11/28/19) Family History Grandmother Cancer Mother Diabetes Denies family history of Anesthesia complication Bleeding disorder Social History Smoking and tobacco status: current every day smoker pipe Pipes smoked per week: 14 and smokeless tobacco Second hand smoke exposure: No Alcohol intake: current Alcohol intake frequency: holidays/special occasions only Alcohol type: beer Caregiver/support person: Yes Lives independently: Yes Housing: House Marital status: service: Yes branch: [employer] Current occupational status: employed History of recent travel: No Ana M/Sikh: Congregation Physical Exam Const: COMMON NORMALS: no acute distress, patient oriented x3 and alert GENERAL APPEARANCE: cooperative and comfortable HENMT: COMMON NORMALS: normocephalic HEAD & SCALP: normocephalic MOUTH: Normal oral and palatal mucosa present THROAT: posterior oropharynx normal and uvula midline Eye: COMMON NORMALS: Equal, round and reactive pupils present PUPIL: Yes Equal, round and reactive pupils present Neck/C-Spine: COMMON NORMALS: supple GENERAL: Yes normal visual inspection Resp: COMMON NORMALS: normal respiratory effort, No retractions, No use of accessory muscles and clear to auscultation bilaterally AUSCULTATION: clear to auscultation bilaterally Cardio: COMMON NORMALS: regular rate, regular rhythm, S1 normal heart sound present, S2 normal heart sound present, No gallops present (Cardio), No clicks present (Cardio), No murmurs present (Cardio) and Peripheral pulses 2+ throughout RATE: regular rate RHYTHM: regular rhythm HEART SOUNDS: S1 normal heart sound present and S2 normal heart sound present PERIPHERAL PULSES: Peripheral pulses 2+ throughout GI: COMMON NORMALS: Normal to inspection, nondistended, normoactive bowel sounds present, Soft to palpation and no masses PALPATION: Yes Soft to palpation and Yes Tenderness to palpation present (GI) (Mild tenderness upon palpation of bladder.) : COMMON NORMALS: Yes no CVA tenderness BLADDER/KIDNEY EXAM: Yes no CVA tenderness Back/Pelvis: COMMON NORMALS: no CVA tenderness Extremity: COMMON NORMALS: normal to inspection Neuro: COMMON NORMALS: patient oriented x3 and moves all extremities SENSORIUM/ORIENTATION: Yes alert Skin: GENERAL SKIN EXAM: dry skin Course Reevaluation(s): Reevaluation #1: Patient says he feels a lot better. He has not had any episodes of emesis while here in the ED. Time: 14:59 Consultations: Consultation #1: I contacted Dr. Castellanos patient's oncologist to discuss patient's ED visit. I told him about his kidney stone seen on CT white blood cell count is 18.1 and yesterday was 4.6. Dr. Castellanos said that he did give patient steroid shot yesterday. Patient did not receive a Neupogen yesterday. He thought patient does not have a fever no real symptoms the increase in white blood cell count were likely from steroid shot and he would not be too concerned. He told me to have him follow-up with him on Sunday to check his white blood cell count. Time: 15:10 Vital Signs: Vital signs: Vital Signs Temperature 98.1 F 02/20/20 12:22 Pulse Rate 86 02/20/20 15:38 Respiratory Rate 20 H 02/20/20 15:38 Blood Pressure 97/62 02/20/20 15:38 Pulse Oximetry 96 02/20/20 15:38 MDM - Male MDM Narrative: Medical decision making narrative: Patient is a 50-year-old male comes to the ED with right flank and right lower pelvic pain. Past medical history of multiple kidney stones, colon cancer and has had bowel resection and chemotherapy. Patient received chemotherapy treatment yesterday. CT of abdomen showed right-sided kidney stone in the distal ureter that was approximately 5 mm. Patient's white blood cell count was 18.1 but I contacted oncologist and he said he is not concerned and patient did receive steroid shot yesterday which probably is the reason for elevated white blood cell count. He told me to have him follow-up with oncology clinic on Sunday to recheck white blood cell count. I put him an order with case management for patient to be seen by urologist Dr. Smith. Patient was discharged with tamsulosin and a prescription for 8 tabs of hydrocodone 5/325 mg. Strain urine to catch stone and told him about follow-up with Dr. Smith. Return to ED precautions given. Patient understood and agreed with plan. Lab Data: Attestation: I reviewed the patient's lab results. Labs: Lab Results 02/20/20 02/20/20 02/20/20 Range/Units 12:40 14:10 14:37 WBC 18.1 H (4.0-10.0) 10^3/ uL RBC 5.36 H (4.1-5.3) 10^6/u L Hgb 15.1 (11.7-16.6) g/dL Hct 46.3 (42.0-52.0) % MCV 86.4 (80-94) fL MCH 28.2 (28.0-34.0) pg MCHC 32.6 (30.0-36.0) g/dL RDW 18.8 H (12.1-15.1) % Plt Count 253 (130-400) 10^3/c mm MPV 10.0 (7.4-10.4) fL Neut % (Auto) 82.5 % Lymph % (Auto) 5.1 % [place] % (Auto) 11.7 % Eos % (Auto) 0.1 % Baso % (Auto) 0.2 % Neut # (Auto) 14.90 H (1.8-7.7) 10^3/u L Lymph # (Auto) 0.9 (0.8-4.8) 10^3/u L [place] # (Auto) 2.1 H (0.2-0.9) 10^3/u L Eos # (Auto) 0.0 (0.0-0.8) 10^3/u L Baso # (Auto) 0.0 (0.0-0.1) 10^3/u L Nucleated RBC % (a uto) 0 % Nucleated RBCs # 0.0 /100WBC Sodium 136 (136-145) mmol/L Potassium 3.6 (3.5-5.1) mmol/L Chloride 99 (98-107) mmol/L Carbon Dioxide 27 (22-29) mmol/L Anion Gap 13.6 (5-19) BUN 19 (6-20) mg/dL Creatinine 1.2 (0.7-1.2) mg/dL GFR Calculation 64.6 L (90-130) mL/min Glucose 116 H (65-115) mg/dL Calculated Osmolal ity 285 (285-295) mOsm/k g Calcium 9.6 (8.5-10.5) mg/dL Total Bilirubin 0.8 (0.15-1.2) mg/dL AST 24 (0-40) U/L ALT 27 (0-41) U/L Alkaline Phosphata se 86 (40-130) IU/L Total Protein 7.3 (6.6-8.7) g/dL Albumin 4.5 (3.5-5.2) g/dL Globulin 2.8 (1.3-4.6) g/dL Urine Color Yellow (Yellow) Urine Appearance Cloudy (CLEAR) Urine pH 5 (5-7) Ur Specific Gravit y 1.025 (1.005-1.030) Urine Protein 2+ H (Negative) Urine Glucose (UA) Norm (Normal) Urine Ketones 1+ H (Negative) Urine Blood 3+ H (Negative) Urine Nitrate Negative (Negative) Urine Bilirubin 1+ H (Negative) Urine Urobilinogen 1 H (Negative) mg/dL Ur Leukocyte Jennifer ase Negative (Negative) Urine RBC >100 H (0-2) /hpf Urine WBC 0-4 H (0-5) /hpf Ur Squamous Epith Cells None (0-5) /hpf Amorphous Sediment Not Reportable Urine Bacteria 1+ H (NONE) /hpf Imaging Data: CT Abd/Pel: Attestation: I personally reviewed and interpreted this imaging study as follows: Radiologist's impression: [address] [address] [address] Scan Report Signed Patient: Charanjit Mccormick Unit #: [id number] : 1970 Age/Sex: 50 / M ADM Date: 02/20/20 Loc: ER Room/Bed: Attending Dr: Ordering Provider/Ordering MD: Geremias Jaime Date of Service: 02/20/20 Procedure(s): CT kidney stone 70993 Accession Number(s): [id number] Report Number: [id number] WS: [id number] CT ABDOMEN AND PELVIS NONCONTRAST HISTORY: flank/abdomen pain TECHNIQUE: Imaging performed through the abdomen and pelvis. Coronal and sagittal reformats are submitted. All CT scans at [facility] use at least one of these dose optimization techniques: automated exposure control; mA and/or kV adjustment per patient size (includes targeted exams where dose is matched to clinical indication); or iterative reconstruction. DLP: 1945.88 mGy.cm COMPARISON: 11/14/2019 Lower thorax: Lung bases are clear. Visualized heart is normal. Small hiatal hernia. Liver: Normal size liver. No mass or bile duct dilatation. Gallbladder: Mildly contracted gallbladder. Pancreas: Normal size and attenuation. Normal pancreatic duct. No pancreatitis or mass. Spleen: Normal. Adrenal glands: Normal. No mass. Right kidney: Mild RIGHT hydroureteronephrosis secondary to a 5.3 mm calcification in the distal ureter. There are additional nonobstructing calcifications in the RIGHT renal pelvis. Left kidney: Normal size kidney with nonobstructing calcifications. Ureter is normal size. Aorta: Mild atherosclerosis abdominal aorta with no aneurysm. No free fluid, intraperitoneal air or significant lymphadenopathy. GI tract: Resection of the mid transverse colon from prior neoplasm. There are anastomotic sutures in the mid transverse colon. There is adjacent omental thickening and stranding at the surgical site. No discrete lymph nodes. There is no obstruction. Abdominal wall: Postsurgical changes along the anterior abdominal wall. Pelvis: Nondistended urinary bladder. No free fluid or adenopathy. Osseous structures: Moderate degenerative disc disease at L5-S1. No osteoblastic or osteolytic bone disease. CT/CT kidney stone 11297 IMPRESSION: 1. Mild RIGHT hydroureteronephrosis secondary to a 5.3 mm calcification in the distal ureter. 2. Additional bilateral nonobstructing renal stones. 3. Surgical resection of the neoplasm in the transverse colon. Anastomotic sutures are noted without obstruction. There is adjacent omental thickening which is probably fat necrosis from the prior surgery. Less likely omental neoplastic disease. Dictated By: Antonette Garcia DO Signed By: Antonette Garcia DO Signed Date/Time: 02/20/20 140 DD/ 1359 Discharge Plan Discharge Patient Disposition: Home Clinical Impression: Kidney stone on right side Condition: Stable Prescriptions: New tamsulosin 0.4 mg capsule 0.4 mg PO DAILY Qty: 14 RF: 0 No Action clonazepam 0.5 mg tablet 0.5 mg PO BID PRN (Reason: Anxiety) RF: 0 lisinopril-hydrochlorothiazide 20-25 mg tablet 1 tab PO DAILY RF: 0 Multiple Vitamins Tablet 1 tab PO DAILY RF: 0 Compazine 10 mg Tablet 10 mg PO QID PRN (Reason: N/V) RF: 0 Pepcid 20 mg Tablet 20 mg PO DAILY RF: 0 dexamethasone 4 mg tablet See Rx Instructions .ROUTE .COMPLEX RF: 0 lorazepam 1 mg tablet See Rx Instructions .ROUTE .COMPLEX RF: 0 Xeloda See Rx Instructions .ROUTE .COMPLEX RF: 0 hydrocodone-acetaminophen 5-325 mg Tablet 1 tab PO Q6H PRN (Reason: Moderate Pain) Qty: 20 RF: 0 sennosides-docusate sodium 8.6-50 mg Tablet 1 tab PO BID Qty: 30 RF: 0 Discharge Orders: Discharge Order (Routine); Ordered 02/20/20 Ordered By: Geremias Jaime Referrals: Lauri Stoddard, [Primary Care Provider] - Discharge Diet: Regular Discharge Activity: Resume usual activity Patient Instructions: Kidney Stones (ED), How to Strain Your Urine (ED) Activity Restrictions/Additional Instructions: Follow-up with medical provider as directed. Contact oncologist on Sunday to potentially redraw labs to check on white blood cell count. Case management should be contacting you in the next several days to set up an appointment with Dr. Smith the urologist. Strain urine to catch stone and drink lots of fluid to stay hydrated and help pass stone. Take medications as prescribed. You can take ibuprofen or Aleve for any pain or fevers. Return to the ER or your medical provider if condition worsens. Please read and understand discharge instructions. If any questions, please ask. Discharge Date/Time: 02/20/20 15:30 Coding Level of Care Code ED Truck Sales Manager for [employer] Fwd Exam Comprehensive
[2020-02-20 14:10] VITALS: RESP 18
[2020-02-20] MEDS: ondansetron 2 mg/ML SDV 2 mL 4 MG IVP (14:10)
[2020-02-20] MEDS: morphine 4 mg/mL SDV 1 mL IVP (14:10)
[2020-02-20] MEDS: sodium chloride 0.9% 1,000 ML 999 ML IV (14:16)
[2020-02-20 14:41] LABS: Alanine Aminotransferase 27 U/L (0-41); Albumin Level 4.5 g/dL (3.5-5.2); Alkaline Phosphatase 86 IU/L (40-130); Anion Gap 13.6 (5-19); Aspartate Amino Transferase 24 U/L (0-40); Blood Urea Nitrogen 19 mg/dL (6-20); Calcium 9.6 mg/dL (8.5-10.5); Carbon Dioxide 27 mmol/L (22-29); Chloride 99 mmol/L (98-107); Globulin 2.8 g/dL (1.3-4.6); Glomerular Filtration Rate 64.6 mL/min (90-130); Glucose 116 mg/dL (65-115); Osmolality Calculated 285 mOsm/kg (285-295); Potassium 3.6 mmol/L (3.5-5.1); Sodium 136 mmol/L (136-145); Total Bilirubin 0.8 mg/dL (0.15-1.2); Total Protein 7.3 g/dL (6.6-8.7)
[2020-02-20 14:51] LABS: Basophils % 0.2 %; Eosinophils % 0.1 %; Hematocrit 46.3 % (42.0-52.0); Hemoglobin 15.1 g/dL (11.7-16.6); Lymphocytes # 0.9 10^3/uL (0.8-4.8); Lymphocytes % 5.1 %; Mean Corpuscular HGB Conc 32.6 g/dL (30.0-36.0); Mean Corpuscular Hemoglobin 28.2 pg (28.0-34.0); Mean Corpuscular Volume 86.4 fL (80-94); Monocytes # 2.1 10^3/uL (0.2-0.9); Monocytes % 11.7 %; Neutrophils % 82.5 %; Nucleated Red Blood Cells % 0 %; Platelet Count 253 10^3/cmm (130-400); Red Blood Count 5.36 10^6/uL (4.1-5.3); Red Cell Distribution Width 18.8 % (12.1-15.1); White Blood Count 18.1 10^3/uL (4.0-10.0)
--- NOTE | 2020-02-20 15:36 | PC.NURSE ---
Pt given urine strainer at time of discharge and pt verbalizes understanding of use.
[2020-02-20 15:38] VITALS: BP 97/62; PULSE 86; RESP 20; O2SAT 96
--- NOTE | 2020-02-23 09:30 | DCPLANNER ---
online communications manager had message to schedule a follow up appointment for patient with Dr. Smith. online communications manager called the office of Dr. Smith, spoke with Desire. online communications manager was told that patients information would be printed and reviewed. Clinic will call patient with appointment information.
--- NOTE | 2020-03-02 15:55 | DCPLANNER ---
manager location spoke with [facility] to confirm if a follow up appointment had been scheduled for patient. manager location was told that clinic spoke with patient on the phone, had a bad connection, told patient to call the clinic to schedule a follow up appointment. Patient never called clinic back, and clinic was unable to reach patient to schedule a follow up.
== END 2020-02-20 15:30 | disposition home or self-care (01) ==
PROVIDERS: Emergency Medicine; Emergency Provider Physician Assistant; PCP Family Medicine
DX: N20.0 Calculus of kidney (principal); Z85.038 Personal history of other malignant neoplasm of large intestine; Z87.442 Personal history of urinary calculi; F17.210 Nicotine dependence, cigarettes, uncomplicated
CPT/HCPCS: 12345; 74176; 80053; 81001; 85025; 87040; 87086; 96361; 96374; 96375; 99282; 99283; J2270; J2405; J7030

== ENCOUNTER 2020-02-26 06:32 | Outpatient (RCR) | payer OTHER, SELFPAY ==
[2020-02-26 12:00] LABS: Basophils % 0.5 %; Eosinophils # 0.2 10^3/uL (0.0-0.8); Hematocrit 43.1 % (42.0-52.0); Hemoglobin 14.3 g/dL (11.7-16.6); Lymphocytes # 1.7 10^3/uL (0.8-4.8); Lymphocytes % 27.6 %; Mean Corpuscular HGB Conc 33.2 g/dL (30.0-36.0); Mean Corpuscular Hemoglobin 28.1 pg (28.0-34.0); Mean Corpuscular Volume 84.7 fL (80-94); Mean Platelet Volume 10.7 fL (7.4-10.4); Monocytes # 0.8 10^3/uL (0.2-0.9); Monocytes % 12.3 %; Neutrophils # 3.52 10^3/uL (1.8-7.7); Neutrophils % 56.1 %; Nucleated Red Blood Cells % 0 %; Platelet Count 159 10^3/cmm (130-400); Red Blood Count 5.09 10^6/uL (4.1-5.3); Red Cell Distribution Width 17.3 % (12.1-15.1); White Blood Count 6.3 10^3/uL (4.0-10.0)
== END 2020-02-27 13:00 | disposition home or self-care (01) ==
LOC: ONCMED 06:32
PROVIDERS: PCP Family Medicine; Visit Provider Internal Medicine Medical Oncology
DX: C18.4 Malignant neoplasm of transverse colon (principal)
CPT/HCPCS: 36415; 85025

== ENCOUNTER 2020-02-27 13:16 | Observation (INO) | payer OTHER, SELFPAY ==
[2020-02-27 13:30] VITALS: BP 131/88; PULSE 93; RESP 18; TEMP 36.3; O2SAT 95; BMI 30.2
--- NOTE | 2020-02-27 13:38 | XR_ITS ---
WS: [id number] XR KUB portable [id number] REASON FOR EXAM: kidney stone FINDINGS: Not able to identify the small calculi in the left kidney seen on the previous CT scan of 02/20/2020. A moderate sized renal calculus in the left kidney is identifiable. There is a calculus in the left pelvis which is in the distal right ureter on the previous CT scan of 02/20/2020. Bowel gas pattern is unremarkable. No free air. No mass is identified. XR/XR KUB portable [id number] IMPRESSION: Left renal calculus. Distal right ureteral calculus.
[2020-02-27 14:21] LABS: Basophils % 0.3 %; Eosinophils # 0.1 10^3/uL (0.0-0.8); Eosinophils % 0.6 %; Hematocrit 42.6 % (42.0-52.0); Hemoglobin 14.2 g/dL (11.7-16.6); Lymphocytes # 1.3 10^3/uL (0.8-4.8); Lymphocytes % 11.5 %; Mean Corpuscular HGB Conc 33.3 g/dL (30.0-36.0); Mean Corpuscular Hemoglobin 28.6 pg (28.0-34.0); Mean Corpuscular Volume 85.9 fL (80-94); Mean Platelet Volume 10.9 fL (7.4-10.4); Monocytes % 9.3 %; Neutrophils # 8.68 10^3/uL (1.8-7.7); Neutrophils % 77.8 %; Nucleated Red Blood Cells % 0 %; Platelet Count 150 10^3/cmm (130-400); Red Blood Count 4.96 10^6/uL (4.1-5.3); Red Cell Distribution Width 17.5 % (12.1-15.1); White Blood Count 11.2 10^3/uL (4.0-10.0)
--- NOTE | 2020-02-27 14:24 | ED_ITS ---
Documented by User: SOLE Noonan 02/27/20 18:09 HPI - Abdominal Pain General: Chief Complaint: Abdominal Pain Stated Complaint: suspected kidney stones Time Seen by Provider: 02/27/20 13:48 History of Present Illness: HPI narrative: 50-year-old male patient presents to the emergency department with right flank pain. History of 5.3 mm distal ureteral stone, with mild hydronephrosis, CT completed 02/20/2020. He was seen in the emergency department on 02/20/2020 due to abdominal pain. States has taken hydrocodone as prescribed with inability to control pain. Actively vomiting upon exam. States cannot sit down due to abdominal pain. History of colon cancer, currently receiving chemotherapy. MD elicited complaint: flank pain (right) Pertinent past history: kidney stones and other (colon cancer) Onset (ago): hour(s) (1-2) Pain Consistency: constant Location: R flank Pain scale (0-10): 10 Quality: aching and dull Radiation: RLQ and suprapubic Exacerbating factors: vomiting and movement Relieving factors: nothing Associated Symptoms: Reports nausea and vomiting; Denies chills, dysuria and fever(s) Review of Systems General: Reports: 10 or more systems reviewed and unremarkable except in HPI and below Const: Denies: fever(s), chills or diaphoresis Eyes: Denies: blurry vision or eye redness ENMT: Denies: throat pain, dental pain or disequilibrium Card: Denies: chest pain, palpitations or irregular heart rhythm Resp: Denies: dyspnea, productive cough, non-productive cough or wheezing GI: Reports: abdominal pain, nausea and vomiting : Denies: dysuria Musc: Denies: neck pain or back pain Skin/Breast: Denies: rash or pruritus Neuro: Denies: headache(s), weakness in extremities or behavioral changes Psych: Reports: anxiety and change in appetite; Denies: depression Jeff/Lymph: Denies: easy bruising PFSH ED PFSH: Medical History (Updated 03/04/20 @ 11:39 by Seymour Smith MD) Cancer of transverse colon Right distal ureteral calculus 5.3 mm right distal ureteral stone with obstruction and severe symptomatology requiring hospitalization and endoscopic lithotripsy. Did well Surgical History History of oral surgery Status post colonoscopy with polypectomy (11/27/19) Status post left hemicolectomy (11/28/19) Family History Grandmother Cancer Mother Diabetes Denies family history of Anesthesia complication Bleeding disorder Social History Smoking and tobacco status: current every day smoker pipe Pipes smoked per week: 14 and smokeless tobacco Second hand smoke exposure: No Alcohol intake: current Alcohol intake frequency: holidays/special occasions only Alcohol type: beer Caregiver/support person: Yes Lives independently: Yes Housing: House Marital status: service: Yes branch: [employer] Current occupational status: employed History of recent travel: No Ana M/Yazdanism: Nondenominational Physical Exam Const: COMMON NORMALS: no acute distress, healthy appearing, alert and well nourished GENERAL APPEARANCE: cooperative, in distress, anxious, well hy drated and other (in pain) NUTRITIONAL APPEARANCE: thin ORIENTATION/CONSCIOUSNESS: Yes awake, Yes oriented to person, Yes oriented to place and Yes oriented to time HENMT: COMMON NORMALS: normocephalic, Normal external nose present and moist oral mucous membranes HEAD & SCALP: normocephalic NOSE: Normal external nose present Eye: COMMON NORMALS: Equal, round and reactive pupils present and EOMs intact bilaterally GENERAL EYE: appearance normal, both eyes and all related structures PUPIL: Yes Equal, round and reactive pupils present Neck/C-Spine: COMMON NORMALS: full ROM and no lymphadenopathy GENERAL: Yes normal visual inspection and Yes trachea midline CERVICAL SPINE: Yes cervical ROM normal Lymph: LYMPHATIC: no lymphadenopathy noted Chest: COMMONS NORMALS: normal inspection of the chest and normal palpation of entire chest wall Resp: COMMON NORMALS: normal respiratory effort and clear to auscultation bilaterally EFFORT & INSPECTION: Yes able to speak in complete sentences AUSCULTATION: clear to auscultation bilaterally Cardio: COMMON NORMALS: regular rhythm, S1 normal heart sound present, S2 normal heart sound present and Peripheral pulses 2+ throughout RHYTHM: regular rhythm HEART SOUNDS: S1 normal heart sound present and S2 normal heart sound present PERIPHERAL PULSES: Peripheral pulses 2+ throughout GI: COMMON NORMALS: Soft to palpation and non-tender INSPECTION: Yes normal to inspection PALPATION: Yes Soft to palpation, Yes Firmness to palpation present (GI) and Yes Tenderness to palpation present (GI) Details: LLQ : BLADDER/KIDNEY EXAM: Yes CVA tenderness on the right Back/Pelvis: COMMON NORMALS: thoracic and lumbar spine normal to inspection GENERAL BACK: Yes CVA tenderness Extremity: COMMON NORMALS: normal to inspection and capillary refill normal Neuro: COMMON NORMALS: no focal motor deficits SENSORIUM/ORIENTATION: Yes alert, Yes oriented to person, Yes oriented to place and Yes oriented to time Psych: COMMON NORMALS: mental status grossly normal, Normal thought process present and cooperative ACTIVITY/MOTOR BEHAVIOR: Yes appropriate eye contact THOUGHT PROCESS: Normal thought process present Skin: COMMON NORMALS: no rashes or lesions noted and turgor normal GENERAL SKIN EXAM: no rashes or lesions noted and turgor normal Course Consultations: Consultation #1: Dr Smith, CT scan from 02/20/2020, today's renal ultrasound, serology results discussed with Dr. Smith, patient remains with distal ureteral stone with increased hydronephrosis of the right kidney. No fever no chills, pain controlled with morphine; nausea resolved with use of Zofran. Advised to control pain with use of Dilaudid or Percocet, continue Zofran for nausea, patient to be clear liquid on Sunday after midnight with n.p.o. status at 7 AM on Sunday. Patient will have follow-up appointment with Dr. Smith on Sunday with possible intervention Sunday afternoon. COVID PTC, repeat KUB for Sunday requested. Orders will be completed. Time: 15:40 Consultation #2: Dr Smith at bedside with patient Time: 16:04 Consultation #3: Dr Smith, discussion patient is requiring increased doses of morphine, advised not to discharge patient home due to inability to control pain adequately. Agrees for admission, case discussed with Dr. Man, admission orders pending at this time. Time: 17:00 Vital Signs: Vital signs: Vital Signs Temperature 98.6 F 02/28/20 12:40 Pulse Rate 73 02/28/20 12:40 Respiratory Rate 17 02/28/20 12:40 Blood Pressure 100/63 02/28/20 12:40 Pulse Oximetry 95 02/28/20 12:40 MDM - Abdominal Pain Lab Data: Labs: Lab Results 11/06/20 11/06/20 11/06/20 Range/Units 13:40 14:08 14:08 WBC 11.2 H (4.0-10.0) 10^3/ uL RBC 4.96 (4.1-5.3) 10^6/u L Hgb 14.2 (11.7-16.6) g/dL Hct 42.6 (42.0-52.0) % MCV 85.9 (80-94) fL MCH 28.6 (28.0-34.0) pg MCHC 33.3 (30.0-36.0) g/dL RDW 17.5 H (12.1-15.1) % Plt Count 150 (130-400) 10^3/c mm MPV 10.9 H (7.4-10.4) fL Neut % (Auto) 77.8 % Lymph % (Auto) 11.5 % [place] % (Auto) 9.3 % Eos % (Auto) 0.6 % Baso % (Auto) 0.3 % Neut # (Auto) 8.68 H (1.8-7.7) 10^3/u L Lymph # (Auto) 1.3 (0.8-4.8) 10^3/u L [place] # (Auto) 1.0 H (0.2-0.9) 10^3/u L Eos # (Auto) 0.1 (0.0-0.8) 10^3/u L Baso # (Auto) 0.0 (0.0-0.1) 10^3/u L Nucleated RBC % (a uto) 0 % Nucleated RBCs # 0.0 /100WBC Sodium 138 (136-145) mmol/L Potassium 3.4 L (3.5-5.1) mmol/L Chloride 101 (98-107) mmol/L Carbon Dioxide 24 (22-29) mmol/L Anion Gap 16.4 (5-19) BUN 12 (6-20) mg/dL Creatinine 1.4 H (0.7-1.2) mg/dL GFR Calculation 54.1 L (90-130) mL/min Glucose 124 H (65-115) mg/dL Calculated Osmolal ity 287 (285-295) mOsm/k g Calcium 9.3 (8.5-10.5) mg/dL Total Bilirubin 0.4 (0.15-1.2) mg/dL AST 33 (0-40) U/L ALT 39 (0-41) U/L Alkaline Phosphata se 89 (40-130) IU/L Total Protein 6.7 (6.6-8.7) g/dL Albumin 4.1 (3.5-5.2) g/dL Globulin 2.6 (1.3-4.6) g/dL Lipase (13-60) U/L Urine Color Yellow (Yellow) Urine Appearance Clear (CLEAR) Urine pH 5 (5-7) Ur Specific Gravit y 1.030 (1.005-1.030) Urine Protein Trace (Negative) Urine Glucose (UA) Norm (Normal) Urine Ketones Negative (Negative) Urine Blood 3+ H (Negative) Urine Nitrate Negative (Negative) Urine Bilirubin 1+ H (Negative) Urine Urobilinogen Norm (Negative) mg/dL Ur Leukocyte Jennifer ase Negative (Negative) Urine RBC 40-50 H (0-2) /hpf Urine WBC None (0-5) /hpf Ur Squamous Epith Cells 0-4 H (0-5) /hpf Calcium Oxalate Cr ystal 15-25 H /hpf Amorphous Sediment Not Reportable Urine Bacteria 2+ H (NONE) /hpf Hyaline Casts 0-4 H /lpf Urine Mucus Trace /hpf 02/27/20 Range/Units 14:08 WBC (4.0-10.0) 10^3/ uL RBC (4.1-5.3) 10^6/u L Hgb (11.7-16.6) g/dL Hct (42.0-52.0) % MCV (80-94) fL MCH (28.0-34.0) pg MCHC (30.0-36.0) g/dL RDW (12.1-15.1) % Plt Count (130-400) 10^3/c mm MPV (7.4-10.4) fL Neut % (Auto) % Lymph % (Auto) % [place] % (Auto) % Eos % (Auto) % Baso % (Auto) % Neut # (Auto) (1.8-7.7) 10^3/u L Lymph # (Auto) (0.8-4.8) 10^3/u L [place] # (Auto) (0.2-0.9) 10^3/u L Eos # (Auto) (0.0-0.8) 10^3/u L Baso # (Auto) (0.0-0.1) 10^3/u L Nucleated RBC % (a uto) % Nucleated RBCs # /100WBC Sodium (136-145) mmol/L Potassium (3.5-5.1) mmol/L Chloride (98-107) mmol/L Carbon Dioxide (22-29) mmol/L Anion Gap (5-19) BUN (6-20) mg/dL Creatinine (0.7-1.2) mg/dL GFR Calculation (90-130) mL/min Glucose (65-115) mg/dL Calculated Osmolal ity (285-295) mOsm/k g Calcium (8.5-10.5) mg/dL Total Bilirubin (0.15-1.2) mg/dL AST (0-40) U/L ALT (0-41) U/L Alkaline Phosphata se (40-130) IU/L Total Protein (6.6-8.7) g/dL Albumin (3.5-5.2) g/dL Globulin (1.3-4.6) g/dL Lipase 124 H (13-60) U/L Urine Color (Yellow) Urine Appearance (CLEAR) Urine pH (5-7) Ur Specific Gravit y (1.005-1.030) Urine Protein (Negative) Urine Glucose (UA) (Normal) Urine Ketones (Negative) Urine Blood (Negative) Urine Nitrate (Negative) Urine Bilirubin (Negative) Urine Urobilinogen (Negative) mg/dL Ur Leukocyte Jennifer ase (Negative) Urine RBC (0-2) /hpf Urine WBC (0-5) /hpf Ur Squamous Epith Cells (0-5) /hpf Calcium Oxalate Cr ystal /hpf Amorphous Sediment Urine Bacteria (NONE) /hpf Hyaline Casts /lpf Urine Mucus /hpf Imaging Data ^: CT Abd/Pel: Radiologist's impression: [address] [address] [address] Scan Report Signed Patient: Charanjit Mccormick #: [id number] : 1970Acct#:[id number] Age/Sex: 50 / MADM Date: 10/30/20 Loc: ERRoom/Bed: Attending Dr: Ordering Provider/Ordering MD: Geremias Jaime Date of Service: 02/20/20 Procedure(s): CT kidney stone 03815 Accession Number(s): [id number] Report Number: [id number] WS: [id number] CT ABDOMEN AND PELVIS NONCONTRAST HISTORY: flank/abdomen pain TECHNIQUE: Imaging performed through the abdomen and pelvis. Coronal and sagittal reformats are submitted. All CT scans at [facility] use at least one of these dose optimization techniques: automated exposure control; mA and/or kV adjustment per patient size (includes targeted exams where dose is matched to clinical indication); or iterative reconstruction. DLP: 1945.88 mGy.cm COMPARISON: 11/14/2019 Lower thorax: Lung bases are clear. Visualized heart is normal. Small hiatal hernia. Liver: Normal size liver. No mass or bile duct dilatation. Gallbladder: Mildly contracted gallbladder. Pancreas: Normal size and attenuation. Normal pancreatic duct. No pancreatitis or mass. Spleen: Normal. Adrenal glands: Normal. No mass. Right kidney: Mild RIGHT hydroureteronephrosis secondary to a 5.3 mm calcification in the distal ureter. There are additional nonobstructing calcifications in the RIGHT renal pelvis. Left kidney: Normal size kidney with nonobstructing calcifications. Ureter is normal size. Aorta: Mild atherosclerosis abdominal aorta with no aneurysm. No free fluid, intraperitoneal air or significant lymphadenopathy. GI tract: Resection of the mid transverse colon from prior neoplasm. There are anastomotic sutures in the mid transverse colon. There is adjacent omental thickening and stranding at the surgical site. No discrete lymph nodes. There is no obstruction. Abdominal wall: Postsurgical changes along the anterior abdominal wall. Pelvis: Nondistended urinary bladder. No free fluid or adenopathy. Osseous structures: Moderate degenerative disc disease at L5-S1. No osteoblastic or osteolytic bone disease. CT/CT kidney stone 18060 IMPRESSION: 1. Mild RIGHT hydroureteronephrosis secondary to a 5.3 mm calcification in the distal ureter. 2. Additional bilateral nonobstructing renal stones. 3. Surgical resection of the neoplasm in the transverse colon. Anastomotic sutures are noted without obstruction. There is adjacent omental thickening which is probably fat necrosis from the prior surgery. Less likely omental neoplastic disease. Other Xray: Radiologist's impression: [address] [address] XRay Report Signed Patient: Charanjit Mccormick Unit #: [id number] : 1970 Age/Sex: 50 / M ADM Date: 02/27/20 Loc: ER Room/Bed: Attending Dr: Ordering Provider/Ordering MD: Lata Martinez Date of Service: 02/27/20 Procedure(s): XR KUB portable [id number] Accession Number(s): [id number] Report Number: [id number] WS: [id number] XR KUB portable [id number] REASON FOR EXAM: kidney stone FINDINGS: Not able to identify the small calculi in the left kidney seen on the previous CT scan of 02/20/2020. A moderate sized renal calculus in the left kidney is identifiable. There is a calculus in the left pelvis which is in the distal right ureter on the previous CT scan of 02/20/2020. Bowel gas pattern is unremarkable. No free air. No mass is identified. XR/XR KUB portable [id number] IMPRESSION: Left renal calculus. Distal right ureteral calculus. Dictated By: Ramón Mireles Jr, MD Signed By: Ramón Mireles Jr, MD Signed Date/Time: 02/27/20 1435 DD/ 1429 US: Radiologist's impression: [address] [address] Ultrasound Report Signed Patient: Charnajit Mccormick Unit #: [id number] : 1970 Age/Sex: 50 / M ADM Date: 02/27/20 Loc: ER Room/Bed: Attending Dr: Ordering Provider/Ordering MD: Lata Martinez Date of Service: 02/27/20 Procedure(s): US renal BI* [id number] Accession Number(s): [id number] Report Number: [id number] WS: [id number] RENAL ULTRASOUND REASON FOR EXAM: kidney stone rt - abdominal pain TECHNIQUE: Grayscale and Doppler ultrasound examination of the kidneys. FINDINGS: Right kidney: Right kidney measures 13.4 cm x 5.8 cm x 7.0 cm. 2 small right renal calculi are identified. There is moderate hydronephrosis. No mass. Left kidney: Left kidney measures 12.9 cm x 4.6 cm x 5.0 centimeters. Left renal calculus identified. No hydronephrosis or mass. The bladder is only partially distended but still appears to have a rather thickened wall. US/US renal BI* [id number] IMPRESSION: Bilateral renal calculi. Right hydronephrosis. Thick-walled urinary bladder. Dictated By: Ramón Mireles Jr, MD Signed By: Ramón Mireles Jr, MD Signed Date/Time: 02/27/201538 DD/ 32 Discharge Plan Discharge Patient Disposition: Admitted As Inpatient Admit Provider: Seymour Smith Clinical Impression: Bilateral renal colic, Right kidney stone, Nausea & vomiting Condition: Stable Discharge Diet: Advance as tolerated and Clear Liquid Discharge Activity: Increase activity as tolerated and Limit activity as instructed Coding Level of Care Code ED Income Tax Preparer for Chg Fwd Exam Comprehensive Documented by User: Ambar Man MD 03/07/20 17:26 HPI - Abdominal Pain General: Chief Complaint: Abdominal Pain Stated Complaint: suspected kidney stones Time Seen by Provider: 02/27/20 13:48 PFSH ED PFSH: Medical History (Updated 03/04/20 @ 11:39 by Seymour Smith MD) Cancer of transverse colon Right distal ureteral calculus 5.3 mm right distal ureteral stone with obstruction and severe symptomatology requiring hospitalization and endoscopic lithotripsy. Did well Surgical History History of oral surgery Status post colonoscopy with polypectomy (11/27/19) Status post left hemicolectomy (11/28/19) Family History Grandmother Cancer Mother Diabetes Denies family history of Anesthesia complication Bleeding disorder Social History Smoking and tobacco status: current every day smoker pipe Pipes smoked per week: 14 and smokeless tobacco Second hand smoke exposure: No Alcohol intake: current Alcohol intake frequency: holidays/special occasions only Alcohol type: beer Caregiver/support person: Yes Lives independently: Yes Housing: House Marital status: service: Yes branch: [employer] Current occupational status: employed History of recent travel: No Ana M/Yazdanism: Nondenominational Course Vital Signs: Vital signs: Vital Signs Temperature 98.6 F 02/28/20 12:40 Pulse Rate 73 02/28/20 12:40 Respiratory Rate 17 02/28/20 12:40 Blood Pressure 100/63 02/28/20 12:40 Pulse Oximetry 95 02/28/20 12:40 MDM - Abdominal Pain Lab Data: Labs: Lab Results 02/27/20 02/27/20 02/27/20 Range/Units 13:40 14:08 14:08 WBC 11.2 H (4.0-10.0) 10^3/ uL RBC 4.96 (4.1-5.3) 10^6/u L Hgb 14.2 (11.7-16.6) g/dL Hct 42.6 (42.0-52.0) % MCV 85.9 (80-94) fL MCH 28.6 (28.0-34.0) pg MCHC 33.3 (30.0-36.0) g/dL RDW 17.5 H (12.1-15.1) % Plt Count 150 (130-400) 10^3/c mm MPV 10.9 H (7.4-10.4) fL Neut % (Auto) 77.8 % Lymph % (Auto) 11.5 % [place] % (Auto) 9.3 % Eos % (Auto) 0.6 % Baso % (Auto) 0.3 % Neut # (Auto) 8.68 H (1.8-7.7) 10^3/u L Lymph # (Auto) 1.3 (0.8-4.8) 10^3/u L [place] # (Auto) 1.0 H (0.2-0.9) 10^3/u L Eos # (Auto) 0.1 (0.0-0.8) 10^3/u L Baso # (Auto) 0.0 (0.0-0.1) 10^3/u L Nucleated RBC % (a uto) 0 % Nucleated RBCs # 0.0 /100WBC Sodium 138 (136-145) mmol/L Potassium 3.4 L (3.5-5.1) mmol/L Chloride 101 (98-107) mmol/L Carbon Dioxide 24 (22-29) mmol/L Anion Gap 16.4 (5-19) BUN 12 (6-20) mg/dL Creatinine 1.4 H (0.7-1.2) mg/dL GFR Calculation 54.1 L (90-130) mL/min Glucose 124 H (65-115) mg/dL Calculated Osmolal ity 287 (285-295) mOsm/k g Calcium 9.3 (8.5-10.5) mg/dL Total Bilirubin 0.4 (0.15-1.2) mg/dL AST 33 (0-40) U/L ALT 39 (0-41) U/L Alkaline Phosphata se 89 (40-130) IU/L Total Protein 6.7 (6.6-8.7) g/dL Albumin 4.1 (3.5-5.2) g/dL Globulin 2.6 (1.3-4.6) g/dL Lipase (13-60) U/L Urine Color Yellow (Yellow) Urine Appearance Clear (CLEAR) Urine pH 5 (5-7) Ur Specific Gravit y 1.030 (1.005-1.030) Urine Protein Trace (Negative) Urine Glucose (UA) Norm (Normal) Urine Ketones Negative (Negative) Urine Blood 3+ H (Negative) Urine Nitrate Negative (Negative) Urine Bilirubin 1+ H (Negative) Urine Urobilinogen Norm (Negative) mg/dL Ur Leukocyte Jennifer ase Negative (Negative) Urine RBC 40-50 H (0-2) /hpf Urine WBC None (0-5) /hpf Ur Squamous Epith Cells 0-4 H (0-5) /hpf Calcium Oxalate Cr ystal 15-25 H /hpf Amorphous Sediment Not Reportable Urine Bacteria 2+ H (NONE) /hpf Hyaline Casts 0-4 H /lpf Urine Mucus Trace /hpf 02/27/20 Range/Units 14:08 WBC (4.0-10.0) 10^3/ uL RBC (4.1-5.3) 10^6/u L Hgb (11.7-16.6) g/dL Hct (42.0-52.0) % MCV (80-94) fL MCH (28.0-34.0) pg MCHC (30.0-36.0) g/dL RDW (12.1-15.1) % Plt Count (130-400) 10^3/c mm MPV (7.4-10.4) fL Neut % (Auto) % Lymph % (Auto) % [place] % (Auto) % Eos % (Auto) % Baso % (Auto) % Neut # (Auto) (1.8-7.7) 10^3/u L Lymph # (Auto) (0.8-4.8) 10^3/u L [place] # (Auto) (0.2-0.9) 10^3/u L Eos # (Auto) (0.0-0.8) 10^3/u L Baso # (Auto) (0.0-0.1) 10^3/u L Nucleated RBC % (a uto) % Nucleated RBCs # /100WBC Sodium (136-145) mmol/L Potassium (3.5-5.1) mmol/L Chloride (98-107) mmol/L Carbon Dioxide (22-29) mmol/L Anion Gap (5-19) BUN (6-20) mg/dL Creatinine (0.7-1.2) mg/dL GFR Calculation (90-130) mL/min Glucose (65-115) mg/dL Calculated Osmolal ity (285-295) mOsm/k g Calcium (8.5-10.5) mg/dL Total Bilirubin (0.15-1.2) mg/dL AST (0-40) U/L ALT (0-41) U/L Alkaline Phosphata se (40-130) IU/L Total Protein (6.6-8.7) g/dL Albumin (3.5-5.2) g/dL Globulin (1.3-4.6) g/dL Lipase 124 H (13-60) U/L Urine Color (Yellow) Urine Appearance (CLEAR) Urine pH (5-7) Ur Specific Gravit y (1.005-1.030) Urine Protein (Negative) Urine Glucose (UA) (Normal) Urine Ketones (Negative) Urine Blood (Negative) Urine Nitrate (Negative) Urine Bilirubin (Negative) Urine Urobilinogen (Negative) mg/dL Ur Leukocyte Jennifer ase (Negative) Urine RBC (0-2) /hpf Urine WBC (0-5) /hpf Ur Squamous Epith Cells (0-5) /hpf Calcium Oxalate Cr ystal /hpf Amorphous Sediment Urine Bacteria (NONE) /hpf Hyaline Casts /lpf Urine Mucus /hpf Discharge Plan Discharge Patient Disposition: Admitted As Inpatient Admit Provider: Seymour Smith Clinical Impression: Bilateral renal colic, Right kidney stone, Nausea & vomiting Condition: Stable Discharge Diet: Advance as tolerated and Clear Liquid Discharge Activity: Increase activity as tolerated and Limit activity as instructed Coding Level of Care Code ED Income Tax Preparer for Maryg Fwd Exam Comprehensive
--- NOTE | 2020-02-27 14:27 | US_ITS ---
WS: [id number] RENAL ULTRASOUND REASON FOR EXAM: kidney stone rt - abdominal pain TECHNIQUE: Grayscale and Doppler ultrasound examination of the kidneys. FINDINGS: Right kidney: Right kidney measures 13.4 cm x 5.8 cm x 7.0 cm. 2 small right renal calculi are identified. There is moderate hydronephrosis. No mass. Left kidney: Left kidney measures 12.9 cm x 4.6 cm x 5.0 centimeters. Left renal calculus identified. No hydronephrosis or mass. The bladder is only partially distended but still appears to have a rather thickened wall. US/US renal BI* [id number] IMPRESSION: Bilateral renal calculi. Right hydronephrosis. Thick-walled urinary bladder.
[2020-02-27 14:38] LABS: Alanine Aminotransferase 39 U/L (0-41); Albumin Level 4.1 g/dL (3.5-5.2); Alkaline Phosphatase 89 IU/L (40-130); Anion Gap 16.4 (5-19); Aspartate Amino Transferase 33 U/L (0-40); Blood Urea Nitrogen 12 mg/dL (6-20); Calcium 9.3 mg/dL (8.5-10.5); Carbon Dioxide 24 mmol/L (22-29); Chloride 101 mmol/L (98-107); Globulin 2.6 g/dL (1.3-4.6); Glomerular Filtration Rate 54.1 mL/min (90-130); Glucose 124 mg/dL (65-115); Osmolality Calculated 287 mOsm/kg (285-295); Potassium 3.4 mmol/L (3.5-5.1); Sodium 138 mmol/L (136-145); Total Bilirubin 0.4 mg/dL (0.15-1.2); Total Protein 6.7 g/dL (6.6-8.7)
[2020-02-27 14:46] VITALS: RESP 18; O2SAT 98
[2020-02-27] MEDS: ondansetron 2 mg/ML SDV 2 mL 4 MG IVP ×2 (14:46→16:13)
[2020-02-27] MEDS: morphine 4 mg/mL SDV 1 mL IVP ×3 (14:46→16:59)
[2020-02-27] MEDS: sodium chloride 0.9% 500 ML 999 ML IV (14:46)
[2020-02-27 15:05] LABS: Lipase 124 U/L (13-60)
[2020-02-27 15:15] LABS: Add Urine Microscopic? YES; Bilirubin Urine 1+ (Negative); Blood Urine 3+ (Negative); Glucose Urine UA Norm (Normal); Ketones Urine Negative (Negative); Leukocyte Esterase Urine Negative (Negative); Nitrate Urine Negative (Negative); Protein Urine Trace (Negative); Urine Appearance Clear (CLEAR); Urine Color Yellow (Yellow); Urobilinogen Urine Norm (Negative); pH Urine 5 (5-7)
[2020-02-27 15:16] LABS: Calcium Oxalate Crystals Urine 15-25 /hpf; RBC Urine 40-50 /hpf (0-2); Squamous Epithelial Cell Urine 0-4 /hpf (0-5)
[2020-02-27 15:17] LABS: Add Urine Culture? Yes; Bacteria Urine 2+ /hpf; Hyaline Casts Urine 0-4 /lpf; Mucus Urine TRACE /hpf
--- NOTE | 2020-02-27 16:06 | PM.CONSULT ---
Providers/Reason For Consult Consulting Physican/Specialty*: Urology/Smith Reason for Consult*: Refractory symptoms related to right distal ureteral stone Requesting [place]: Tiffani Primary Care Provider: Lauri Stoddard DO History of Present Illness History of Present Illness Charanjit Mccormick is a 50 year old male with a history of urolithiasis who presented to the emergency department on 02/20/2020 with complaints of right renal colicky symptoms and was found to have a 5.3 mm right distal ureteral stone with obstructive changes in the absence of infection. Recommendations were to follow-up with urology but somehow that fell through. He presented back to the emergency department today with severe refractory nausea vomiting and pain typical for right renal colic. Work-up showed no evidence of infection. Creatinine had increased slightly from baseline of 1.2-1.4. Repeat KUB showed no previous calcification identified on CT scan as being persistent and roughly the same position. Ultrasound showed increased hydronephrosis. Aggressive management of his pain in the emergency department led to significant improvement in his symptoms and he wanted to trial outpatient management but go ahead and get on the schedule for early next week for intervention. We reviewed both endoscopic/extracorporeal shockwave lithotripsy options. Other significant medical issues include colon cancer status post excision as well as follow-up postoperative chemotherapy. He is followed by Dr. Lopez and Dr. Castellanos. Despite aggressive parenteral treatment for nausea vomiting and pain the patient was not able to control his symptoms adequately for discharge for further outpatient management. For that reason the decision for admission was made. We discussed his options which would include keeping him on the schedule for Sunday the or going ahead and scheduling for intervention tomorrow 02/28/2020. After detailed discussion of his options, procedure, benefits, risks, potential complications etc. he elected to proceed with cystoscopy, RIGHT: Retrograde ureteroscopy laser and stent on 02/28/2020. Informed consent was obtained. Review of Systems Const: Denies: fever(s) or chills Eyes: Denies: change in vision ENMT: Denies: throat pain Card: Reports: palpitations; Denies: chest pain Resp: Denies: dyspnea or wheezing GI: Reports: abdominal pain, nausea and vomiting : Reports: flank pain; Denies: dysuria Musc: Denies: joint redness Skin/Breast: Denies: rash or pruritus Neuro: Reports: Slurred speech present and seizure-like activity Psych: Denies: anxiety Jeff/Lymph: Denies: easy bruising or easy bleeding All/Imm: Denies: urticaria Meds/Allergies Home Medications and Allergies Home Medications Medication Instructions Recorded Confirmed Last Taken Type lisinopril-hydrochlorothiazide 1 tab PO DAILY 11/25/19 02/27/20 02/27/20 History hydrocodone-acetaminophen 1 tab PO Q6H PRN #20 tab 12/01/19 02/27/20 02/27/20 Rx Xeloda See Rx Instructions .ROUTE .COMPLEX 02/20/20 02/27/20 02/27/20 History famotidine [Pepcid] 20 mg PO DAILY 02/20/20 02/27/20 02/27/20 History lorazepam See Rx Instructions .ROUTE .COMPLEX 02/20/20 02/27/20 02/27/20 History multivitamin [Multiple Vitamins] 1 tab PO DAILY 02/20/20 02/27/20 Unknown History prochlorperazine maleate 10 mg PO QID PRN 02/20/20 02/27/20 02/19/20 History [Compazine] tamsulosin 0.4 mg PO DAILY #14 cap 02/20/20 02/27/20 02/27/20 Rx oxycodone-acetaminophen [Percocet] 1 tab PO Q4H PRN #14 tab 02/27/20 02/27/20 Unknown Rx Allergies Allergy/AdvReac Type Severity Reaction Status Date / Time No Known Allergies Allergy Verified 01/16/20 13:19 PFSH Acute PFSH: Medical History Cancer of transverse colon Ureteral calculus, right Surgical History History of oral surgery Status post colonoscopy with polypectomy (11/27/19) Status post left hemicolectomy (11/28/19) Family History Grandmother Cancer Mother Diabetes Denies family history of Anesthesia complication Bleeding disorder Social History Smoking and tobacco status: current every day smoker pipe Pipes smoked per week: 14 and smokeless tobacco Second hand smoke exposure: No Alcohol intake: current Alcohol intake frequency: holidays/special occasions only Alcohol type: beer Caregiver/support person: Yes Lives independently: Yes Housing: House Marital status: service: Yes branch: [employer] Current occupational status: employed History of recent travel: No Ana M/Congregation: [employer] Vitals/I&O/Wt Last Vital Signs Temp 97.3 F L 02/27/20 13:30 Pulse 93 02/27/20 13:30 Resp 18 02/27/20 14:46 BP 131/88 02/27/20 13:30 Pulse Ox 98 02/27/20 14:46 Weight last 48 hrs Weight 223 lb Physical Exam Const: COMMON NORMALS: no acute distress, alert and well nourished GENERAL APPEARANCE: well kempt and well developed ORIENTATION/CONSCIOUSNESS: not confused HENMT: COMMON NORMALS: normocephalic and atraumatic HEAD & SCALP: normocephalic and atraumatic Eye: COMMON NORMALS: conjunctivae normal and no scleral icterus CONJUNCTIVA: Yes conjunctivae normal Neck/C-Spine: COMMON NORMALS: full ROM Resp: COMMON NORMALS: normal respiratory effort EFFORT & INSPECTION: No labored and No Actively coughing Cardio: COMMON NORMALS: regular rate and regular rhythm RATE: regular rate RHYTHM: regular rhythm GI: OTHER: Intermittent nausea and vomiting Neuro: SENSORIUM/ORIENTATION: Yes alert Psych: COMMON NORMALS: mental status grossly normal APPEARANCE: Yes grossly normal and Yes well kempt ATTITUDE: Yes calm and Yes engaged Skin: COMMON NORMALS: no rashes or lesions noted and no jaundice GENERAL SKIN EXAM: no rashes or lesions noted A&P Assessment and plan (1) Right distal ureteral calculus: Refractory right distal ureteral stone requiring hospitalization for symptomatic control despite aggressive parenteral antiemetics and narcotics in the emergency department. Ultimately chose to proceed with endoscopy laser lithotripsy for treatment of the stone. Status: Acute (2) Nausea & vomiting: Status: Acute Qualifiers: Vomiting Intractability: non-intractable Vomiting type: unspecified Qualified Code(s): R11.2 - Nausea with vomiting, unspecified (3) Renal colic on right side: Status: Acute (4) Cancer of transverse colon: Status: Acute Consult Attestations Medical Necessity Statement: Was seen in the emergency department for refractory symptoms. Attempt at obtaining symptomatic control was unsuccessful and for that reason was admitted for more aggressive inpatient care. Ultimately chose to proceed with endoscopic treatment of the stone in order to hasten recovery. 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
[2020-02-27 16:13] VITALS: RESP 18; O2SAT 98
[2020-02-27] MEDS: oxyCODONE-APAP 5-325 mg Tablet 1 TAB PO (16:13)
[2020-02-27 16:59] VITALS: RESP 18; O2SAT 98
[2020-02-27] MEDS: promethazine 25 mg/mL SDV 1 mL IM (16:59)
[2020-02-27 17:56] VITALS: BP 136/72; PULSE 88; RESP 16; O2SAT 97
--- NOTE | 2020-02-27 18:27 | PC.NURSE ---
pt report called to Shanta FERNÁNDEZ in SBAR format.
[2020-02-27] MEDS: ketorolac 30 mg/mL INJ 15 MG IVP (19:53)
[2020-02-27] MEDS: dextrose 5%-sod chloride 0.45% 1,000 ML 100 ML IV (19:56)
[2020-02-27 20:00] VITALS: BP 105/64; PULSE 88; RESP 17; TEMP 37.1; O2SAT 95
[2020-02-28] VITALS (12 sets, daily range): BP systolic 100–128; BP diastolic 62–96; PULSE 55–95; RESP 12–20; TEMP 36.3–37; O2SAT 90–97
--- NOTE | 2020-02-28 | SCC_ITS ---
Procedure Done: Right retrograde ureteropyelogram Cystoscopy, ureteroscopy with laser lithotripsy and stent (4.7 Honduran by 28 cm double-pigtail with string attached distally) 22.9 seconds of fluoroscopic guidance, for a cumulative dose of 6.43 mGy, was provided to Dr. Smith the radiology department. C-arm images of the abdomen were saved for the patient's permanent record. [facility]
[2020-02-28] MEDS: famotidine 20 mg Tablet PO ×2 (00:25→10:47)
[2020-02-28] MEDS: dextrose 5%-sod chloride 0.45% 1,000 ML 100 ML IV (05:11)
--- NOTE | 2020-02-28 06:17 | PC.NURSE ---
Shift Summary Patient has rested well throughout the night. Patient urinated once, walking to bathroom, even though provided urinal and strainer and educated to use. He is sure that he didn't pass stone though.Toradol given once, otherwise no other medications given for pain. Consent obtained for procedure with Dr. Smith and placed in chart. He has been NPO after midnight.
--- NOTE | 2020-02-28 08:15 | ANES.PREANE2 ---
Pre-Anesthetic Assessment Pre-Anesthetic Assessment: Height/Weight: Height 1.83 m Weight 101.151 kg Temp Pulse Resp BP Pulse Ox 98.6 F 58 L 18 104/62 95 02/28/20 04:00 02/28/20 04:00 02/28/20 04:00 02/28/20 04:00 02/28/20 04:00 Preop Diagnosis: Kidney stone Proposed Procedure: Operation Date: 02/28/20 09:20 Proposed Procedures p Cystoscopy, RIGHT: retrograde, ureteroscopy, laser, stent, possible extracorporeal shockwave lithotripsy(Right) - Seymour Smith MD Familial anesthetic complications: None Was Beta Cori taken within 24 hours: N/A Last intake: NPO > 8 hrs Social: Social History: No alcohol and No tobacco Exam: Pre-Anes Outpt Exam: alert, oriented x 3, clear to auscultation bilaterally and regular rate & rhythm Airway: Cervical ROM: WNL MP: 2 Dentition: False (glued in) CV/HEM: CV/HEM: HTN GI: GI: GERD Comments: colon cancer Anesthetic Plan: ASA status: 2 Anesthesia: General Risk of > 500 ml blood loss (7ml/kg in children): No Meds/Allergies Current Medications: Current Medications Generic Name Dose Route Start Last Admin Trade Name Freq PRN Reason Stop Dose Admin Famotidine 20 mg 02/28/20 00:15 02/28/20 00:25 Pepcid Tab PO 20 mg BEDTIME FEROZ Administration Dextrose/Sodium Ch loride 1,000 mls @ 100 m ls/hr 02/27/20 19:15 02/28/20 05:11 Dextrose 5%-Sod Chloride 0.45% IV 100 mls/hr .Q10H FEROZ Administration Ketorolac Trometha mine 15 mg 02/27/20 19:15 02/27/20 19:53 Toradol IVP 03/03/20 19:14 15 mg Q8H PRN Administration MODERATE PAIN PFSH Anesthesia PFSH: Medical History Cancer of transverse colon Ureteral calculus, right Surgical History History of oral surgery Status post colonoscopy with polypectomy (11/27/19) Status post left hemicolectomy (11/28/19) Family History Grandmother Cancer Mother Diabetes Denies family history of Anesthesia complication Bleeding disorder Social History Smoking and tobacco status: current every day smoker pipe Pipes smoked per week: 14 and smokeless tobacco Second hand smoke exposure: No Alcohol intake: current Alcohol intake frequency: holidays/special occasions only Alcohol type: beer Caregiver/support person: Yes Lives independently: Yes Housing: House Marital status: service: Yes branch: [employer] Current occupational status: employed History of recent travel: No Ana M/Jehovah'S Witness: Jew Data Anesthesia CBC & Chem 7: 02/27/20 14:08 02/27/20 14:08 Other Labs: Laboratory Results - last 48 hr 02/27/20 02/27/20 02/27/20 13:40 14:08 14:08 WBC 11.2 H RBC 4.96 Hgb 14.2 Hct 42.6 MCV 85.9 MCH 28.6 MCHC 33.3 RDW 17.5 H Plt Count 150 MPV 10.9 H Neut % (Auto) 77.8 Lymph % (Auto) 11.5 [place] % (Auto) 9.3 Eos % (Auto) 0.6 Baso % (Auto) 0.3 Neut # (Auto) 8.68 H Lymph # (Auto) 1.3 [place] # (Auto) 1.0 H Eos # (Auto) 0.1 Baso # (Auto) 0.0 Nucleated RBC % (auto) 0 Nucleated RBCs # 0.0 Sodium 138 Potassium 3.4 L Chloride 101 Carbon Dioxide 24 Anion Gap 16.4 BUN 12 Creatinine 1.4 H GFR Calculation 54.1 L Glucose 124 H Calculated Osmolality 287 Calcium 9.3 Total Bilirubin 0.4 AST 33 ALT 39 Alkaline Phosphatase 89 Total Protein 6.7 Albumin 4.1 Globulin 2.6 Lipase Urine Color Yellow Urine Appearance Clear Urine pH 5 Ur Specific [place] 1.030 Urine Protein Trace Urine Glucose (UA) Norm Urine Ketones Negative Urine Blood 3+ H Urine Nitrate Negative Urine Bilirubin 1+ H Urine Urobilinogen Norm Ur Leukocyte Esterase Negative Urine RBC 40-50 H Urine WBC None Ur Squamous Epith Cells 0-4 H Calcium Oxalate Crystal 15-25 H Amorphous Sediment Not Reportable Urine Bacteria 2+ H Hyaline Casts 0-4 H Urine Mucus Trace 02/27/20 14:08 WBC RBC Hgb Hct MCV MCH MCHC RDW Plt Count MPV Neut % (Auto) Lymph % (Auto) [place] % (Auto) Eos % (Auto) Baso % (Auto) Neut # (Auto) Lymph # (Auto) [place] # (Auto) Eos # (Auto) Baso # (Auto) Nucleated RBC % (auto) Nucleated RBCs # Sodium Potassium Chloride Carbon Dioxide Anion Gap BUN Creatinine GFR Calculation Glucose Calculated Osmolality Calcium Total Bilirubin AST ALT Alkaline Phosphatase Total Protein Albumin Globulin Lipase 124 H Urine Color Urine Appearance Urine pH Ur Specific [place] Urine Protein Urine Glucose (UA) Urine Ketones Urine Blood Urine Nitrate Urine Bilirubin Urine Urobilinogen Ur Leukocyte Esterase Urine RBC Urine WBC Ur Squamous Epith Cells Calcium Oxalate Crystal Amorphous Sediment Urine Bacteria Hyaline Casts Urine Mucus Cardiac Studies: No Data to Display
[2020-02-28] MEDS: sodium chloride 0.9% 1,000 ML 30 ML IV (08:24)
--- NOTE | 2020-02-28 08:27 | PM.PN ---
Subjective Subjective: Interval history: Hospital day #2 for refractory symptoms related to right distal ureteral stone requiring hospitalization Pain has been better controlled. No fever chills. Nausea is reduced. Has not passed the stone on straining to voids. Reviewed again with him his options including continued inpatient, outpatient conservative management versus proceeding with surgical intervention and after detailed discussion he elected to proceed. The pain he experienced yesterday was debilitating and difficult to control and he does not want to risk that again. Informed consent was obtained for proceeding with cystoscopy, RIGHT: Retrograde ureteroscopy laser stent Medications: Reviewed: Yes Vitals/I&O/Wt Last Vital Signs Temp 98.2 F 02/28/20 08:12 Pulse 58 L 02/28/20 08:12 Resp 18 02/28/20 08:12 BP 102/63 02/28/20 08:12 Pulse Ox 97 02/28/20 08:12 02/27/20 02/28/20 02/28/20 22:59 06:59 14:59 Intake Total 925 / 925 Balance 925 / 925 Weight last 48 hrs Weight 223 lb Physical Exam Const: COMMON NORMALS: alert and well nourished GENERAL APPEARANCE: well kempt and well developed ORIENTATION/CONSCIOUSNESS: not confused Resp: COMMON NORMALS: normal respiratory effort EFFORT & INSPECTION: No labored and No Actively coughing Neuro: COMMON NORMALS: no focal motor deficits SENSORIUM/ORIENTATION: Yes alert Psych: COMMON NORMALS: mental status grossly normal APPEARANCE: Yes grossly normal and Yes well kempt ATTITUDE: Yes calm and Yes engaged Data : 02/27/20 14:08 02/27/20 14:08 A&P Assessment and plan (1) Right distal ureteral calculus: Refractory right distal ureteral stone requiring hospitalization for symptomatic control despite aggressive parenteral antiemetics and narcotics in the emergency department. Ultimately chose to proceed with endoscopy laser lithotripsy for treatment of the stone. Decision to proceed to surgery today. Status: Acute (2) Renal colic on right side: Improved. Has not passed the stone though. Status: Acute (3) Cancer of transverse colon: Status: Acute Attestations Medical Necessity Statement*: Should be able to be discharged after surgical intervention today. Follow-up to be arranged pending stent or no stent. 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
--- NOTE | 2020-02-28 08:36 | PM.OP ---
Operative Report Date of procedure: February 28, 2020 Pre-op Diagnosis: Right distal ureteral stone with refractory symptoms Post-op diagnosis: same Procedure Done: Right retrograde ureteropyelogram Cystoscopy, ureteroscopy with laser lithotripsy and stent (4.7 Filipino by 28 cm double-pigtail with string attached distally) Surgeon: Sarah Anesthesia: General Estimated blood loss: Minimal Complications: None Findings: Stone in the expected position. Condition: stable Disposition: PACU Brief History: Charanjit is a very pleasant 50-year-old white male about a week ago developed renal colicky symptoms and presented to the emergency department and was found to have a 5.3 mm right distal ureteral stone with obstruction on CT scan. No evidence of infection. Initial choice was conservative management. Prior to follow-up he developed recurrent severe renal colicky symptoms along with nausea and vomiting that could not be controlled at home despite medications for that. He presented back to the emergency department yesterday with the symptoms. Initially we thought we would be able to control symptoms adequately to send home for further can 10 you to therapy in hopes of spontaneous passage or if failed outpatient endoscopic treatment. Unfortunately symptoms were not controlled despite aggressive parenteral medication in the emergency department and for that reason he was admitted. Did not pass the stone overnight and ultimately chose to proceed with endoscopic treatment of the stone. Procedure: After routine preoperative evaluation examination and obtaining of informed consent he was taken to the operating suite on 02/28/2020 where general anesthesia was administered without difficulty after appropriate timeout was performed, SCDs confirmed to be functioning, preoperative antibiotics administered, beta-emiliano protocol confirmed. Prepped and draped in usual sterile fashion in dorsal lithotomy position paying careful attention to avoiding pressure points. 21 Filipino cystoscope with 30 degree lens was introduced into the urethral meatus and advanced into the bladder under videoscopy. Bladder was systematically examined and found to be within normal limits without stone in the bladder. 8 Filipino cone-tipped catheter was intubated to the right ureteral orifice for right retrograde ureteropyelogram showing the stone is a filling defect in the expected position. The ureter proximal to the stone was dilated. A flexible tip guidewire was advanced up the right ureter bypassing the stone and curling in the appropriate position in the upper pole calyx area. The ureter distal to the stone was dilated with a 15 Filipino 4 cm balloon. The wire was secured to the drapes as a safety wire and then a 7 Filipino offset semirigid ureteroscope was advanced up the right ureter next to the guidewire where the stone was encountered in the expected position and fragmented with a 365 ?m thulium superpulse laser fiber and a small enough pieces that were easily removable. A parachute basket was utilized to remove the larger of the pieces. Most of the sand flushed out of the ureter. Final inspection showed no remaining substantial fragments beyond very small amount of sand. The cystoscope was then backloaded over the guidewire and a 4.7 Filipino by 28 cm double-pigtail stent with string attached distally was advanced over the guidewire through the cystoscope into appropriate position as confirmed via fluoroscopy and cystoscopy. The fragments that had been dropped into the bladder were flushed free from the bladder through the cystoscope. The procedure was completed. The string was shortened in the left hanging. He tolerated the procedure well without complications and was awakened in the operating room and returned to the recovery room in stable condition. PLANS: 1. Return to the floor for recovery after meeting postoperative discharge criteria he can be sent home. 2. I will see him back in the middle of next week for stent removal with string or he can pull the stent out himself by utilization of the string.
--- NOTE | 2020-02-28 08:44 | SC_ITS ---
WS: [id number] C-arm fluoroscopy of pelvis for placement of right ureteral stent, 02/28/2020. Clinical Data: surgery Comparison: KUB, 02/27/2020. Findings: Contrast material was injected into the distal right ureter. Then a right ureteral stent was inserted and the distal portion curls in the bladder. SC/C-arm FL for Urology Impression: Insertion of right ureteral stent.
[2020-02-28] MEDS: levofloxacin-dextrose 5 % 500 MG/100 ML PREMIX 100 MG IV (08:59)
[2020-02-28] MEDS: iohexol 300 mg/mL 50 mL Btl (OR ONLY) XX (09:15)
--- NOTE | 2020-02-28 09:53 | P.DS_ITS ---
Discharge Providers Date of Admission: 02/27/20 17:15 Date of Discharge: February 28, 2020 Attending Provider at Admission: Seymour Smith MD Attending Provider at Discharge: Seymour Smith MD Primary Care Provider: Lauri Stoddard DO Diagnoses at Discharge Discharge Diagnosis (1) Right distal ureteral calculus: Status: Resolved Permanent problem details: 5.3 mm right distal ureteral stone with obstruction and severe symptomatology requiring hospitalization and endoscopic lithotripsy. Did well (2) Renal colic on right side: Status: Resolved (3) Cancer of transverse colon: Status: Acute Reason for Visit Reason for Visit: suspected kidney stones Hospital Course Discharge Summary: Admitted on 02/27/2020 through the emergency department for refractory nausea vomiting and renal colicky symptoms secondary to 5.3 mm stone that been diagnosed on 02/20/2020 in the emergency department. The stone was still present on KUB. It was felt that he could be a candidate for further convalescence at home but unable to get his symptoms controlled enough to allow that and for that reason he was admitted. The stone did not pass while he was hospitalized and ultimately he chose to proceed with endoscopic laser lithotripsy. On the morning of 02/28/2020 he underwent ureteroscopy laser lithotripsy stent an d retrograde pyelogram. The stone was completely fragmented and removed. There was significant amount of inflammation where the stone had been lodged and for that reason a stent was left indwelling with plans for removal middle to late next week with the string attached. After recovery from the surgery on 02/28/2020 he was discharged home in stable condition. Physical Exam Const: COMMON NORMALS: no acute distress, alert and well nourished GENERAL APPEARANCE: well kempt and well developed ORIENTATION/CONSCIOUSNESS: not confused Resp: COMMON NORMALS: normal respiratory effort EFFORT & INSPECTION: No labored and No Actively coughing Neuro: COMMON NORMALS: no focal motor deficits SENSORIUM/ORIENTATION: Yes alert Psych: COMMON NORMALS: mental status grossly normal APPEARANCE: Yes grossly normal and Yes well kempt ATTITUDE: Yes calm and Yes engaged Discharge Data Data Completed and Pending: Completed Studies During Hospitalization Category Date Time Status XR KUB portable 7 [id number] Urgent Exams 02/27/20 13:38 Completed US renal BI* [id number] Urgent Ultrasound 02/27/20 14:27 Completed Pending at discharge Category Date Time Status C-arm Fluoroscopy [id number] Routine Exams 02/28/20 08:44 Ordered Coronavirus Lab T est PTC Routine Lab 02/27/20 18:32 Received Urine Culture Sta t Lab 02/27/20 13:40 Received Labs from last 24 hours 02/27/20 02/27/20 02/27/20 18:32 14:08 14:08 WBC RBC Hgb Hct MCV MCH MCHC RDW Plt Count MPV Neut % (Auto) Lymph % (Auto) Wheeler % (Auto) Eos % (Auto) Baso % (Auto) Neut # (Auto) Lymph # (Auto) Wheeler # (Auto) Eos # (Auto) Baso # (Auto) Nucleated RBC % (a uto) Nucleated RBCs # Sodium 138 Potassium 3.4 L Chloride 101 Carbon Dioxide 24 Anion Gap 16.4 BUN 12 Creatinine 1.4 H GFR Calculation 54.1 L Glucose 124 H Calculated Osmolal ity 287 Calcium 9.3 Total Bilirubin 0.4 AST 33 ALT 39 Alkaline Phosphata se 89 Total Protein 6.7 Albumin 4.1 Globulin 2.6 Lipase 124 H Urine Color Urine Appearance Urine pH Ur Specific Gravit y Urine Protein Urine Glucose (UA) Urine Ketones Urine Blood Urine Nitrate Urine Bilirubin Urine Urobilinogen Ur Leukocyte Jennifer ase Urine RBC Urine WBC Ur Squamous Epith Cells Calcium Oxalate Cr ystal Amorphous Sediment Urine Bacteria Hyaline Casts Urine Mucus Nasal/Oral COVID-1 9 PCR Pending 02/27/20 02/27/20 14:08 13:40 WBC 11.2 H RBC 4.96 Hgb 14.2 Hct 42.6 MCV 85.9 MCH 28.6 MCHC 33.3 RDW 17.5 H Plt Count 150 MPV 10.9 H Neut % (Auto) 77.8 Lymph % (Auto) 11.5 Wheeler % (Auto) 9.3 Eos % (Auto) 0.6 Baso % (Auto) 0.3 Neut # (Auto) 8.68 H Lymph # (Auto) 1.3 Wheeler # (Auto) 1.0 H Eos # (Auto) 0.1 Baso # (Auto) 0.0 Nucleated RBC % (a uto) 0 Nucleated RBCs # 0.0 Sodium Potassium Chloride Carbon Dioxide Anion Gap BUN Creatinine GFR Calculation Glucose Calculated Osmolal ity Calcium Total Bilirubin AST ALT Alkaline Phosphata se Total Protein Albumin Globulin Lipase Urine Color Yellow Urine Appearance Clear Urine pH 5 Ur Specific Gravit y 1.030 Urine Protein Trace Urine Glucose (UA) Norm Urine Ketones Negative Urine Blood 3+ H Urine Nitrate Negative Urine Bilirubin 1+ H Urine Urobilinogen Norm Ur Leukocyte Jennifer ase Negative Urine RBC 40-50 H Urine WBC None Ur Squamous Epith Cells 0-4 H Calcium Oxalate Cr ystal 15-25 H Amorphous Sediment Not Reportable Urine Bacteria 2+ H Hyaline Casts 0-4 H Urine Mucus Trace Nasal/Oral COVID-1 9 PCR Vitals: Last Vital Signs Temp 98.2 F 02/28/20 08:12 Pulse 58 L 02/28/20 08:12 Resp 18 02/28/20 08:12 BP 102/63 02/28/20 08:12 Pulse Ox 97 02/28/20 08:12 Discharge Plan Discharge Patient Disposition: Home Condition: Stable Prescriptions: New oxycodone-acetaminophen [Percocet] 5-325 mg tablet 1 tab PO Q4H PRN (Reason: pain) Qty: 14 RF: 0 No Action lisinopril-hydrochlorothiazide 20-25 mg tablet 1 tab PO DAILY RF: 0 multivitamin [Multiple Vitamins] Tablet 1 tab PO DAILY RF: 0 prochlorperazine maleate [Compazine] 10 mg Tablet 10 mg PO QID PRN (Reason: N/V) RF: 0 famotidine [Pepcid] 20 mg Tablet 20 mg PO DAILY RF: 0 lorazepam 1 mg tablet See Rx Instructions .ROUTE .COMPLEX RF: 0 Xeloda See Rx Instructions .ROUTE .COMPLEX RF: 0 tamsulosin 0.4 mg capsule 0.4 mg PO DAILY Qty: 14 RF: 0 hydrocodone-acetaminophen 5-325 mg Tablet 1 tab PO Q6H PRN (Reason: Moderate Pain) Qty: 20 RF: 0 Discharge Orders: Discharge Order (Routine); Ordered 02/28/20 Ordered By: Seymour Smith Referrals: Seymour Smith MD [Physician] - (Please call [facility] [place] [facility] and set up an appointment to see Dr Smith. [phone]) Lauri Stoddard DO [Primary Care Provider] - (Please call Dr. Stoddard and make an appontment to see him within one week. [phone].) Discharge Diet: Advance as tolerated and Clear Liquid Discharge Activity: Increase activity as tolerated and Limit activity as instructed Patient Instructions: Oxycodone/Acetaminophen (By mouth), Cystoscopy (DC), Renal Colic (GEN) Discharge Attestations Time Spent in Discharge Care*: less than 30 min Quality Metrics Clinical Quality Measures During this hospital stay, did patient experience: None Coding Level of Care Code Acute [employer] for [employer]g Fwd Exam Expanded Problem Focused Diagnoses Right distal ureteral calculus N20.1 Renal colic on right side N23 Cancer of transverse colon C18.4
--- NOTE | 2020-02-28 10:20 | ANE.PACU2 ---
Inpatient post-anesthesia follow up: Airway intact: Yes Vital signs: Temperature 98.6 F Pulse Rate [Monito r] 93 Pulse Rate 73 Respiratory Rate 17 Blood Pressure [Le ft Arm] 131/88 Blood Pressure 100/63 Pulse Oximetry 95 Oxygen Delivery Me thod Room Air Oxygen Flow Rate 2 Fraction of Inspir ed Oxygen Hydration adequate: Yes Nausea and vomiting: No Pain level: 2 Mental status: Baseline
--- NOTE | 2020-02-28 10:31 | SUR.PHASEI ---
1021 PATIENT TRANSFERRED TO MED SURG. A/OX3. NO DISTRESS. SLIGHT PAIN AND BURNING. PATIENT AMBULATORY FROM [facility] TO BED ON ARRIVING TO MED SURG.
[2020-02-28] MEDS: HYDROcodone-acetaminophen 5-325 mg Tablet 1 TAB PO (10:50)
--- NOTE | 2020-02-28 12:45 | PC.NURSE ---
Discharge instruction given to patient, voiced full understanding, patients pocket knife removed from [facility] and returned to patient, IV DC'd cath intact bleeding controlled with 2x2 and coban, patient to main entrance to personal vehicle with zero difficulties.
[2020-02-29 18:38] LABS: Coronavirus Lab Test PTC Negative
--- NOTE | 2020-03-01 17:53 | PC.RESP ---
Smoking Cessation information sent to patient.
[2020-03-08 02:42] LABS: Stone Source KIDNEY
== END 2020-02-28 12:45 | disposition home or self-care (01) ==
LOC: ER 17:07 → MEDSURG 18:04
PROVIDERS: Nurse Practitioner Family; Admitting Provider Urology; PCP Family Medicine; Visit Provider Urology
PROC: 0TJB8ZZ Inspection of Bladder, Via Natural or Artificial Opening Endoscopic (ICD-10-PCS; CPT 52000; principal; 2020-02-28 09:00)
PROC: (CPT 74420; 2020-02-28 09:00)
PROC: 0TJ98ZZ Inspection of Ureter, Via Natural or Artificial Opening Endoscopic (ICD-10-PCS; CPT 52351; 2020-02-28 09:00)
PROC: (CPT 50605; 2020-02-28 09:00)
DX: N20.1 Calculus of ureter (principal); N23 Unspecified renal colic; C18.4 Malignant neoplasm of transverse colon; I10 Essential (primary) hypertension; F17.290 Nicotine dependence, other tobacco product, uncomplicated
CPT/HCPCS: 52356; 12345; 74018; 76000; 76770; 80053; 81001; 82365; 83690; 85025; 87086; 87635; 88300; 96360; 96361; 96372; 96374; 96375; 96376; 99283; 99285; C1725; G0378; J1100; J1885; J1956; J2250; J2270; J2405; J2550; J2704; J2710; J3010; J3490; J7030; J7040; J7799

== ENCOUNTER 2020-03-04 09:41 | Outpatient (CLI) | payer OTHER, SELFPAY ==
--- NOTE | 2020-03-04 10:00 | XR_ITS ---
WS: [id number] KUB, 03/04/2020 Clinical Data: URETERAL STONE Comparison: KUB, 02/27/2020. Findings: No abnormal intraabdominal masses are seen. There is no dilatated small bowel or evidence of obstruct ion. There are calcifications overlying the left kidney. There is a ureteral stent extending from the blad annemarie into the right renal pelvis. XR/XR KUB [id number] Impression: Right renal stent.
== END 2020-03-04 09:42 | disposition home or self-care (01) ==
LOC: RAD 09:44
PROVIDERS: PCP Family Medicine; Visit Provider Urology
DX: N20.1 Calculus of ureter (principal)
CPT/HCPCS: 74018; 81003

== ENCOUNTER 2020-03-11 05:21 | Outpatient (RCR) | payer OTHER, SELFPAY ==
[2020-03-04 09:51] LABS: Basophils % 0.6 %; Eosinophils # 0.1 10^3/uL (0.0-0.8); Eosinophils % 2.1 %; Hematocrit 43.7 % (42.0-52.0); Hemoglobin 14.1 g/dL (11.7-16.6); Lymphocytes # 1.5 10^3/uL (0.8-4.8); Lymphocytes % 28.3 %; Mean Corpuscular HGB Conc 32.3 g/dL (30.0-36.0); Mean Corpuscular Hemoglobin 28.2 pg (28.0-34.0); Mean Corpuscular Volume 87.4 fL (80-94); Monocytes # 0.5 10^3/uL (0.2-0.9); Monocytes % 9.9 %; Neutrophils # 3.14 10^3/uL (1.8-7.7); Neutrophils % 58.7 %; Nucleated Red Blood Cells % 0 %; Platelet Count 118 10^3/cmm (130-400); Red Cell Distribution Width 17.5 % (12.1-15.1); White Blood Count 5.3 10^3/uL (4.0-10.0)
[2020-03-11 08:27] LABS: Basophils # 0.1 10^3/uL (0.0-0.1); Basophils % 0.8 %; Eosinophils # 0.1 10^3/uL (0.0-0.8); Eosinophils % 1.2 %; Hematocrit 47.4 % (42.0-52.0); Hemoglobin 15.7 g/dL (11.7-16.6); Lymphocytes # 1.8 10^3/uL (0.8-4.8); Lymphocytes % 28.5 %; Mean Corpuscular HGB Conc 33.1 g/dL (30.0-36.0); Mean Corpuscular Hemoglobin 28.5 pg (28.0-34.0); Mean Platelet Volume 10.8 fL (7.4-10.4); Monocytes # 0.6 10^3/uL (0.2-0.9); Monocytes % 9.3 %; Neutrophils # 3.88 10^3/uL (1.8-7.7); Nucleated Red Blood Cells % 0 %; Platelet Count 234 10^3/cmm (130-400); Red Blood Count 5.51 10^6/uL (4.1-5.3); Red Cell Distribution Width 17.8 % (12.1-15.1); White Blood Count 6.5 10^3/uL (4.0-10.0)
[2020-03-11 08:59] LABS: Alanine Aminotransferase 37 U/L (0-41); Albumin Level 4.1 g/dL (3.5-5.2); Alkaline Phosphatase 89 IU/L (40-130); Anion Gap 16.9 (5-19); Aspartate Amino Transferase 29 U/L (0-40); Blood Urea Nitrogen 10 mg/dL (6-20); Calcium 9.1 mg/dL (8.5-10.5); Carbon Dioxide 23 mmol/L (22-29); Chloride 101 mmol/L (98-107); Globulin 2.9 g/dL (1.3-4.6); Glomerular Filtration Rate 79.8 mL/min (90-130); Glucose 101 mg/dL (65-115); Osmolality Calculated 283 mOsm/kg (285-295); Potassium 3.9 mmol/L (3.5-5.1); Sodium 137 mmol/L (136-145); Total Bilirubin 0.5 mg/dL (0.15-1.2)
--- NOTE | 2020-03-14 13:09 | ONC FU_ITS ---
Dr. Castellanos Patient Follow-Up Note Patient: Charanjit Mccormick Unit #: [id number]: 1970 Dicatated By: Chris Castellanos M.D.Date of Visit:Mar 11, 2020 Onc Med Follow-up/Prog Note Chief Complaint: Colon cancer. 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 In March 2019 he had presented to the emergency room with hematochezia. His CT abdomen/pelvis showed mucosal thickening of the distal transverse and proximal descending colon with reported differential to include nonspecific colitis and neoplasm. He was treated empirically with ciprofloxacin and metronidazole. He was initially planned to have further evaluation with colonoscopy, but the procedure was deferred due to restrictions related to the coronavirus pandemic. On 11/14/2019 he returned to the emergency room with complaints of right flank pain radiating into the groin. A repeat CT abdomen/pelvis showed evidence of bilateral nephrolithiasis with an obstructing stone noted in the mid right ureter. Also noted on that study was a segment of abnormal thickening of the distal transverse colon which was felt to be worrisome for malignancy. A few small mildly prominent lymph nodes were noted in the adjacent mesentery. With that finding he was referred to Dr. Lopez. Colonoscopy on 11/27/2019 showed a circumferential obstructing mass in the distal transverse colon. The colonoscope was not able to be traversed beyond the mass. Biopsy was positive for well-differentiated adenocarcinoma. On 11/28/2019 he underwent laparoscopic left hemicolectomy. There was no gross evidence of metastatic disease. Pathology showed moderately differentiated adenocarcinoma measuring 5 x 3.5 x 3 cm. Tumor was noted to invade into the muscularis propria. Margins were uninvolved. There was evidence of lymphovascular invasion. There was involvement in 1 of 12 lymph nodes. There was intact nuclear expression of mismatch repair proteins by IHC. His baseline CEA level was significantly elevated at 162.5 ng/mL. I had seen him initially on 01/01/2020. In the setting of stage IIIA disease, he was recommended to undergo adjuvant chemotherapy with 4 cycles of oxaliplatin/Xeloda. His other medical illnesses include hypertension, GERD, and seasonal allergies. He does have a history of nephrolithiasis. He has a history of smoking 1 pack of cigarettes daily off and on for 10 to 12 years. He quit smoking a couple of years ago, but he still chews tobacco daily. INTERIM HISTORY: He began cycle 1 of oxaliplatin/Xeloda on 01/08/2020. He tolerated that treatment well, and he continued with cycle 2 on 01/29/2020 and with cycle 3 on 02/19/2020. He is seen for a scheduled visit. He had significantly more side effects with his 3rd cycle of chemotherapy, including nausea/vomiting which lasted 4 to 5 days. That treatment also was complicated by nephrolithiasis, for which he was seen in the ER on 02/20/2020. He then underwent lithotripsy on 02/28/2020. His energy was down for a couple of days and his appetite was poor. He has not had fever or night sweats. He has no shortness of breath, cough, or chest pain. Bowel and bladder function have been okay. He has no significant joint or bone pain. He does not complain of headache. He occasionally has dizziness. His neuropathy symptoms worsened significantly, and at this point he continues to have numbness/tingling in his fingers. It is worse with cold exposure. Medications: Chlorpheniramine Maleate 1 Tablet (of 4 mg) Oral daily, Lisinopril-hydroCHLOROthiazide 1 Tablet (of 20-25 mg) Oral daily, LORazepam 1 Tablet (of 0.5 mg) Oral t.i.d., Multivitamin 1 Tablet Oral daily, Pepcid 1 Tablet (of 20 mg) Oral daily Allergies: No Known Allergies. Review of Systems: Constitutional - Energy was down for couple days after treatment, but since then not too bad. Appetite was bad for couple of days, but otherwise okay. He has not had fever or night sweats. ECOG score is 1, ENMT - No sinus congestion/drainage. No mouth sores. No sore throat or difficulty swallowing, Hematologic/Lymphatic - No abnormal bruising or bleeding, Respiratory - No shortness of breath. No cough. No pleuritic pain or hemoptysis, Cardiovascular - No angina pain. No palpitations, Gastrointestinal - He had nausea/vomiting for 4 to 5 days after treatment. He has some acid reflux, adequately managed with Pepcid. No diarrhea or constipation. No blood in the stool or black stools, Genitourinary (M) - No dysuria or hematuria. No urgency or incontinence. His treatment was complicated by a right ureteral stone, requiring laser lithotripsy on 02/27/2020, Musculoskeletal - No joint or bone pain, Integumentary - No skin rash, Neurologic - No headache. He occasionally has dizziness. He has persistent numbness/tingling in his fingers. It is worse with cold exposure. No other focal neurologic symptoms, Psychiatric - He has had some anxiety. He does not sleep well at night. Vital Signs: Performed on Mar 11, 2020 09:25 Height - 71.50 in Weight - 226.6 lbs (LOW) BSA - 2.24 sq.m BMI - 31.16 (HIGH) Temperature - 99.4 F (HIGH) Pulse - 121 /min (HIGH) Respiration - 20 /min BP - 136/77 mm(hg) O2 Sat - 97 % Pain - 0 Physical Examination: Constitutional - He looks good generally, Eyes - Sclerae nonicteric. Conjunctivae clear, ENMT - No lesions noted in the oral cavity, Hematologic/Lymphatic - No cervical, clavicular, or axillary adenopathy, Respiratory - Lungs are clear with good air movement bilaterally, Cardiovascular - Heart rhythm is regular. There is no murmur, gallop, or rub noted, Abdomen - Soft. Liver and spleen are not enlarged. There is no abdominal mass or ascites noted and there is no inguinal adenopathy, Extremities - No edema, Integumentary - No hand/foot syndrome, Neurologic - No focal neurologic deficits noted. Lab/Imaging: Test performed on Mar 11, 2020 08:14 Sodium 137 mmol/L Potassium 3.9 mmol/L Chloride 101 mmol/L CO2 23 mmol/L Anion Gap 16.9 BUN 10 mg/dL Creatinine 1.0 mg/dL Cr Clearance (Est) 129.4800 mL/min eGFR 79.8 mL/min Glucose 101 mg/dL Osmolality - Calculated 283 mOsm/kg Calcium 9.1 mg/dL Protein, Total 7.0 g/dL Albumin 4.1 g/dL Globulin 2.9 g/dL Bilirubin, Total 0.5 mg/dL ALT (SGPT) 37 U/L AST (SGOT) 29 U/L Alkaline Phosphatase 89 IU/L WBC 6.5 10 3/uL RBC 5.51 10 6/uL HGB 15.7 g/dL HCT 47.4 % MCV 86.0 fL MCH 28.5 pg MCHC 33.1 g/dL RDW 17.8 % Platelet Count 234 10 3/cmm MPV 10.8 fL Neutrophils 3.88 10 3/uL Lymphocytes 1.8 10 3/uL Monocytes 0.6 10 3/uL Eosinophils 0.1 10 3/uL Basophils 0.1 10 3/uL Neutrophil % 60.0 % Lymphocyte % 28.5 % Monocyte % 9.3 % Eosinophil % 1.2 % Basophils % 0.8 % NRBC % 0 % Impression: 1. 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 His tumor had intact nuclear expression of mismatch repair proteins. 2. He underwent laparoscopic left hemicolectomy on 11/28/2019. He had a significantly elevated preoperative CEA level. His other medical illnesses include: 3. Hypertension. 4. Nephrolithiasis. 5. Seasonal allergies. In the setting of stage IIIA disease he was recommended to undergo adjuvant chemotherapy with 4 cycles of oxaliplatin/Xeloda. He began cycle 1 on 01/08/2020. He tolerated that treatment well, and he continued with cycle 2 on 01/29/2020. Following the 2nd cycle, he had a little more fatigue and a little more nausea. His neuropathy symptoms also worsened, but they had resolved by the third week. He then continued with cycle 3 on 02/19/2020. He had significantly more side effects with that treatment, including nausea/vomiting for 4 to 5 days, but it also was complicated by right ureteral stone, requiring lithotripsy on 02/28/2020. However, in addition, he also has developed worsening neuropathy, which now persists in his hands. Plan: He will proceed now with his 4th cycle chemotherapy, but with Xeloda alone, as I am going to hold the oxaliplatin. The dosage will remain the same. He returns in 1 month. Signed By: Chris Castellanos M.D. <<Signature on File>>
== END 2020-03-22 23:59 | disposition home or self-care (01) ==
LOC: ONCMED 05:21
PROVIDERS: PCP Family Medicine; Visit Provider Internal Medicine Medical Oncology
DX: C18.4 Malignant neoplasm of transverse colon (principal); I10 Essential (primary) hypertension; N20.0 Calculus of kidney; J30.2 Other seasonal allergic rhinitis; Z79.899 Other long term (current) drug therapy
CPT/HCPCS: 36415; 80053; 85025; 99214

== ENCOUNTER 2020-04-08 05:46 | Outpatient (RCR) | payer OTHER, SELFPAY ==
[2020-04-08 10:13] LABS: Basophils % 0.7 %; Eosinophils # 0.1 10^3/uL (0.0-0.8); Hematocrit 47.5 % (42.0-52.0); Hemoglobin 15.7 g/dL (11.7-16.6); Lymphocytes # 1.7 10^3/uL (0.8-4.8); Lymphocytes % 30.2 %; Mean Corpuscular HGB Conc 33.1 g/dL (30.0-36.0); Mean Corpuscular Hemoglobin 29.1 pg (28.0-34.0); Mean Platelet Volume 11.1 fL (7.4-10.4); Monocytes # 0.4 10^3/uL (0.2-0.9); Monocytes % 7.7 %; Neutrophils # 3.31 10^3/uL (1.8-7.7); Neutrophils % 59.2 %; Nucleated Red Blood Cells % 0 %; Platelet Count 224 10^3/cmm (130-400); Red Cell Distribution Width 15.1 % (12.1-15.1); White Blood Count 5.6 10^3/uL (4.0-10.0)
[2020-04-08 11:34] LABS: Carcinoembryonic Antigen 1.7 ng/mL (0.0-4.7)
--- NOTE | 2020-04-12 17:18 | ONC FU_ITS ---
[facility] Patient Note Patient: Charanjit Mccormick Unit #: [id number]: 1970 Dictated By: Ministerio ShookDate of Visit: Apr 08, 2020 Onc MED Follow-Up/Prog Note Chief Complaint: Colon cancer. 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 In March 2019 he had presented to the emergency room with hematochezia. His CT abdomen/pelvis showed mucosal thickening of the distal transverse and proximal descending colon with reported differential to include nonspecific colitis and neoplasm. He was treated empirically with ciprofloxacin and metronidazole. He was initially planned to have further evaluation with colonoscopy, but the procedure was deferred due to restrictions related to the coronavirus pandemic. On 11/14/2019 he returned to the emergency room with complaints of right flank pain radiating into the groin. A repeat CT abdomen/pelvis showed evidence of bilateral nephrolithiasis with an obstructing stone noted in the mid right ureter. Also noted on that study was a segment of abnormal thickening of the distal transverse colon which was felt to be worrisome for malignancy. A few small mildly prominent lymph nodes were noted in the adjacent mesentery. With that finding he was referred to Dr. Lopez. Colonoscopy on 11/27/2019 showed a circumferential obstructing mass in the distal transverse colon. The colonoscope was not able to be traversed beyond the mass. Biopsy was positive for well-differentiated adenocarcinoma. On 11/28/2019 he underwent laparoscopic left hemicolectomy. There was no gross evidence of metastatic disease. Pathology showed moderately differentiated adenocarcinoma measuring 5 x 3.5 x 3 cm. Tumor was noted to invade into the muscularis propria. Margins were uninvolved. There was evidence of lymphovascular invasion. There was involvement in 1 of 12 lymph nodes. There was intact nuclear expression of mismatch repair proteins by IHC. His baseline CEA level was significantly elevated at 162.5 ng/mL. Dr Castellanos had seen him initially on 01/01/2020. In the setting of stage IIIA disease, he was recommended to undergo adjuvant chemotherapy with 4 cycles of oxaliplatin/Xeloda. His other medical illnesses include hypertension, GERD, and seasonal allergies. He does have a history of nephrolithiasis. He has a history of smoking 1 pack of cigarettes daily off and on for 10 to 12 years. He quit smoking a couple of years ago, but he still chews tobacco daily. INTERIM HISTORY: He began cycle 1 of oxaliplatin/Xeloda on 01/08/2020. He tolerated that treatment well, and he continued with cycle 2 on 01/29/2020 and with cycle 3 on 02/19/2020. He had significantly more side effects with his 3rd cycle of chemotherapy, including nausea/vomiting which lasted 4 to 5 days. That treatment also was complicated by nephrolithiasis, for which he was seen in the ER on 02/20/2020. He then underwent lithotripsy on 02/28/2020. He continued to have numbness/tingling in his fingers. It is worse with cold exposure. The oxaliplatin was held with cycle 4. He completed the last cycle with capecitabine only. Mr. Mccormick is here today for follow-up. He has no new concerns other than neck pain. He states he has had chronic neck pain for some time but for some reason it just seems to be worse recently . He denies any recent trauma. He denies any chills. He denies any one-sided weakness numbness or any vision changes. He continues to have some neuropathy pain states that is usually cold-induced. It is no worse and may be slightly better. Pain. 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 He denies any diarrhea or constipation. He denies any skin changes. He states his energy is slowly improving but he is currently limited due to neck pain. He does get relief with the hydrocodone. His ECOG is 0 Past Medical History: Gastroesophageal reflux disease Hypertension Nephrolithiasis Seasonal allergies Past Surgical History: Laparoscopic left hemicolectomy in 2019 Colonoscopy in 2019 Allergies: No Known Allergies. Medications: Chlorpheniramine Maleate 1 Tablet (of 4 mg) Oral daily Lisinopril-hydroCHLOROthiazide 1 Tablet (of 20-25 mg) Oral daily LORazepam 1 Tablet (of 0.5 mg) Oral t.i.d. Multivitamin 1 Tablet Oral daily Pepcid 1 Tablet (of 20 mg) Oral daily Family History: Father is still living at approximately age 70 and in reasonably good health. Mother of heart disease at age 65. One brother is also in good health. A maternal aunt had cervical cancer. Social History: Mr. Mccormick is and he is an unknown. Mr. Mccormick no longer smokes. He drinks occasionally. He has indicated exposure to the following products: chewing tobacco and pipe. Mr. Mccormick reports the following support systems: lives with spouse, significant other, family, or friends, lives in own house, supportive family/friends willing to assist with needs, and adequate transportation available for expected visits. His diet consists of regular meals. He indicates his activity level as: regular exercise. He has history of smoking 1 pack of cigarettes daily off and on for 10 to 12 years. He quit smoking a couple of years ago. He still chews tobacco daily. He has just very occasional alcohol use. Review Of Symptoms: Constitutional Denies fevers, chills, night sweats, excessive fatigue or weight loss. Allergic/Immunologic No reactions. Eyes Denies significant visual changes. No diplopia. No amaurosis. ENMT Denies changes in hearing, sore throat, mouth sores, difficulty or changes in swallowing ability, and/or sinus drainage. Hematologic/Lymphatic Denies easy bruising or bleeding. The patient denies any tender or palpable lymph nodes. Respiratory Denies dyspnea on exertion, chest pain, cough or hemoptysis. Denies orthopnea. Cardiovascular Denies anginal chest pain, palpitations or orthopnea. Gastrointestinal Denies nausea, vomiting, diarrhea, GI bleeding, or constipation. Denies change in bowel habits and/or stool color, no heartburn or early satiety. Genitourinary (M) Denies hematuria, dysuria, increased frequency, urgency, hesitancy or incontinence. Musculoskeletal Has had increased neck pain and bilateral arm (left worse than right) numbness intermittently since his last treatment of oxaliplatin on 02/19/2020. He denies swelling or redness. No decreased range of motion. Integumentary Denies chronic rashes, inflammation, ulcerations or skin changes. Neurologic Denies headache, blurred vision, and no areas of focal weakness or numbness. Normal gait. Some mild tingling in fingers with cold weather. Psychiatric Denies insomnia, depression, autumn or mood swings. Vital Signs: Performed on Apr 08, 2020 11:35 Height - 71.50 in Weight - 230.8 lbs (HIGH) BSA - 2.25 sq.m BMI - 31.74 (HIGH) Temperature - 99.0 F (HIGH) Pulse - 75 /min Respiration - 18 /min BP - 120/76 mm(hg) O2 Sat - 97 % Pain - 5,0 - Fully active, able to carry on all predisease activities without restrictions. (ECOG) Physical Examination: Constitutional Alert, oriented, no acute distress. Skin pink, warm and dry. Head Normocephalic; atraumatic. Eyes Conjunctivae and sclerae are clear and without icterus. Pupils are reactive and equal. Neck Supple without masses or thyromegaly. No jugular venous distension. Hematologic/Lymphatic No petechiae or purpura. No tender or palpable lymph nodes in the cervical or supraclavicular areas. Respiratory Lungs are clear to auscultation without rhonchi or wheezing. Cardiovascular Regular rate and rhythm of heart without murmurs,clicks, gallops or rubs. Back/Spine Non-tender to palpation. Extremities No visible deformities, no cyanosis, clubbing or edema. Musculoskeletal No tenderness or swelling, normal range of motion without obvious weakness. Integumentary No rashes or lesions. Neurologic No sensory or motor deficits, normal cerebellar function, normal gait. Psychiatric Alert and oriented times three. Coherent speech. Verbalizes understanding of our discussions today. Laboratory:Test performed on Apr 08, 2020 09:34 WBC 5.6 10 3/uL RBC 5.40 10 6/uL HGB 15.7 g/dL HCT 47.5 % MCV 88.0 fL MCH 29.1 pg MCHC 33.1 g/dL RDW 15.1 % Platelet Count 224 10 3/cmm MPV 11.1 fL Neutrophils 3.31 10 3/uL Lymphocytes 1.7 10 3/uL Monocytes 0.4 10 3/uL Eosinophils 0.1 10 3/uL Basophils 0.0 10 3/uL Neutrophil % 59.2 % Lymphocyte % 30.2 % Monocyte % 7.7 % Eosinophil % 2.0 % Basophils % 0.7 % NRBC % 0 % CEA 1.7 ng/mL Test performed on Mar 11, 2020 08:14 Sodium 137 mmol/L Potassium 3.9 mmol/L Chloride 101 mmol/L CO2 23 mmol/L Anion Gap 16.9 BUN 10 mg/dL Creatinine 1.0 mg/dL Cr Clearance (Est) 129.4800 mL/min eGFR 79.8 mL/min Glucose 101 mg/dL Osmolality - Calculated 283 mOsm/kg Calcium 9.1 mg/dL Protein, Total 7.0 g/dL Albumin 4.1 g/dL Globulin 2.9 g/dL Bilirubin, Total 0.5 mg/dL ALT (SGPT) 37 U/L AST (SGOT) 29 U/L Alkaline Phosphatase 89 IU/L Test performed on Jan 29, 2020 09:24 Magnesium 2.3 mg/dL Impression: 1. 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 His tumor had intact nuclear expression of mismatch repair proteins. 2. He underwent laparoscopic left hemicolectomy on 11/28/2019. He had a significantly elevated preoperative CEA level. His other medical illnesses include: 3. Hypertension. 4. Nephrolithiasis. 5. Seasonal allergies. In the setting of stage IIIA disease he was recommended to undergo adjuvant chemotherapy with 4 cycles of oxaliplatin/Xeloda. He began cycle 1 on 01/08/2020. He tolerated that treatment well, and he continued with cycle 2 on 01/29/2020. Following the 2nd cycle, he had a little more fatigue and a little more nausea. His neuropathy symptoms also worsened, but they had resolved by the third week. He then continued with cycle 3 on 02/19/2020. He had significantly more side effects with that treatment, including nausea/vomiting for 4 to 5 days, but it also was complicated by right ureteral stone, requiring lithotripsy on 02/28/2020. However, in addition, he also had developed worsening neuropathy, which now persists in his hands. Mr. South he did 4 cycles of capecitabine and 3 cycles of XELOX. The oxaliplatin was admitted with cycle 4 due to side effects. He states his neuropathy is better. He has now completed full cycles of treatment as previously recommended. Plan: 1. Mr. Mccormick is now completed 4 cycles of Xeloda and 3 cycles of XELOX. 2. Today's labs reviewed in detail discussed with Mr. Mccormick and a copy was given to him. WBC 5.6, hemoglobin 15.7, platelets 234,000 ANC is 3310. 3. We will refill his hydrocodone 01/23/2025 which is a dose increase per Dr. Castellanos's written prescription. He has been using 1-1/2-2 of the 5 mg to obtain relief. We discussed at length investigating his neck pain further. However he would like to wait till after the first of the year to see if further in the chemo this gets better. It is not completely affecting his ADLs as of yet but does limit him occasionally. 4. We will plan to see him back in 1 month with CBC CMP and follow-up CEA. Mr. Mccormick has been encouraged to contact us in interim should questions or problems arise or if he decides he wants us to go ahead and work-up the neck pain before his follow-up appointment. Signed By: Ministerio Shook-, [facility] Chris Castellanos MD <<Signature on File>>
== END 2020-04-22 23:59 | disposition home or self-care (01) ==
LOC: ONCMED 05:46
PROVIDERS: PCP Family Medicine; Visit Provider Internal Medicine Medical Oncology
DX: C18.4 Malignant neoplasm of transverse colon (principal); I10 Essential (primary) hypertension; N20.0 Calculus of kidney; J30.9 Allergic rhinitis, unspecified; Z79.899 Other long term (current) drug therapy
CPT/HCPCS: 36415; 82378; 85025; 99214

== ENCOUNTER 2020-05-27 09:31 | Outpatient (CLI) | payer OTHER, SELFPAY ==
[2020-05-27 10:11] LABS: Basophils # 0.1 10^3/uL (0.0-0.1); Basophils % 0.8 %; Eosinophils # 0.3 10^3/uL (0.0-0.8); Eosinophils % 4.9 %; Hematocrit 47.3 % (42.0-52.0); Hemoglobin 15.7 g/dL (11.7-16.6); Lymphocytes # 1.9 10^3/uL (0.8-4.8); Lymphocytes % 28.1 %; Mean Corpuscular HGB Conc 33.2 g/dL (30.0-36.0); Mean Corpuscular Hemoglobin 29.8 pg (28.0-34.0); Mean Corpuscular Volume 89.8 fL (80-94); Mean Platelet Volume 10.8 fL (7.4-10.4); Monocytes # 0.5 10^3/uL (0.2-0.9); Monocytes % 7.4 %; Neutrophils # 3.85 10^3/uL (1.8-7.7); Neutrophils % 58.3 %; Nucleated Red Blood Cells % 0 %; Platelet Count 186 10^3/cmm (130-400); Red Blood Count 5.27 10^6/uL (4.1-5.3); Red Cell Distribution Width 12.2 % (12.1-15.1); White Blood Count 6.6 10^3/uL (4.0-10.0)
[2020-05-27 10:46] LABS: Alanine Aminotransferase 31 U/L (0-41); Albumin Level 4.4 g/dL (3.5-5.2); Alkaline Phosphatase 74 IU/L (40-130); Anion Gap 11.6 (5-19); Aspartate Amino Transferase 22 U/L (0-40); Blood Urea Nitrogen 11 mg/dL (6-20); Calcium 9.7 mg/dL (8.5-10.5); Carbon Dioxide 30 mmol/L (22-29); Chloride 100 mmol/L (98-107); Globulin 2.8 g/dL (1.3-4.6); Glomerular Filtration Rate 79.8 mL/min (90-130); Glucose 89 mg/dL (65-115); Osmolality Calculated 285 mOsm/kg (285-295); Potassium 3.6 mmol/L (3.5-5.1); Sodium 138 mmol/L (136-145); Total Bilirubin 0.5 mg/dL (0.15-1.2); Total Protein 7.2 g/dL (6.6-8.7)
[2020-05-27 11:47] LABS: Carcinoembryonic Antigen 1.4 ng/mL (0.0-4.7)
--- NOTE | 2020-05-31 18:30 | ONC FU_ITS ---
[facility] Patient Note Patient: Charanjit Mccormick Unit #: [id number]: 1970 Dictated By: Ministerio ShookDate of Visit: May 27, 2020 Onc MED Follow-Up/Prog Note Chief Complaint: Colon cancer. 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 In March 2019 he had presented to the emergency room with hematochezia. His CT abdomen/pelvis showed mucosal thickening of the distal transverse and proximal descending colon with reported differential to include nonspecific colitis and neoplasm. He was treated empirically with ciprofloxacin and metronidazole. He was initially planned to have further evaluation with colonoscopy, but the procedure was deferred due to restrictions related to the coronavirus pandemic. On 11/14/2019 he returned to the emergency room with complaints of right flank pain radiating into the groin. A repeat CT abdomen/pelvis showed evidence of bilateral nephrolithiasis with an obstructing stone noted in the mid right ureter. Also noted on that study was a segment of abnormal thickening of the distal transverse colon which was felt to be worrisome for malignancy. A few small mildly prominent lymph nodes were noted in the adjacent mesentery. With that finding he was referred to Dr. Lopez. Colonoscopy on 11/27/2019 showed a circumferential obstructing mass in the distal transverse colon. The colonoscope was not able to be traversed beyond the mass. Biopsy was positive for well-differentiated adenocarcinoma. On 11/28/2019 he underwent laparoscopic left hemicolectomy. There was no gross evidence of metastatic disease. Pathology showed moderately differentiated adenocarcinoma measuring 5 x 3.5 x 3 cm. Tumor was noted to invade into the muscularis propria. Margins were uninvolved. There was evidence of lymphovascular invasion. There was involvement in 1 of 12 lymph nodes. There was intact nuclear expression of mismatch repair proteins by IHC. His baseline CEA level was significantly elevated at 162.5 ng/mL. Dr Castellanos had seen him initially on 01/01/2020. In the setting of stage IIIA disease, he was recommended to undergo adjuvant chemotherapy with 4 cycles of oxaliplatin/Xeloda. His other medical illnesses include hypertension, GERD, and seasonal allergies. He does have a history of nephrolithiasis. He has a history of smoking 1 pack of cigarettes daily off and on for 10 to 12 years. He quit smoking a couple of years ago, but he still chews tobacco daily. INTERIM HISTORY: He began cycle 1 of oxaliplatin/Xeloda on 01/08/2020. He tolerated that treatment well, and he continued with cycle 2 on 01/29/2020 and with cycle 3 on 02/19/2020. He had significantly more side effects with his 3rd cycle of chemotherapy, including nausea/vomiting which lasted 4 to 5 days. That treatment also was complicated by nephrolithiasis, for which he was seen in the ER on 02/20/2020. He then underwent lithotripsy on 02/28/2020. He continued to have numbness/tingling in his fingers. It is worse with cold exposure. The oxaliplatin was held with cycle 4. He completed the last cycle with capecitabine only. Mr. Mccormick is here today for follow-up. He has no new concerns other than chronic neck pain. He denies any one-sided weakness numbness or any vision changes. He continues to have some residual neuropathy pain and states that is usually cold-induced. It is no worse and may be slightly better. 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 He denies any diarrhea or constipation. He denies any skin changes. He states his energy is slowly improving but he is currently limited due to neck pain. He does get relief with the hydrocodone. His ECOG is 0. He has had some intermittent insomnia lately but has not tried lorazepam although he still has some on hand. Past Medical History: Gastroesophageal reflux disease Hypertension Nephrolithiasis Seasonal allergies Past Surgical History: Laparoscopic left hemicolectomy in 2019 Colonoscopy in 2019 Allergies: No Known Allergies. Medications: Chlorpheniramine Maleate 1 Tablet (of 4 mg) Oral daily Lisinopril-hydroCHLOROthiazide 1 Tablet (of 20-25 mg) Oral daily LORazepam 1 Tablet (of 0.5 mg) Oral t.i.d. Multivitamin 1 Tablet Oral daily Pepcid 1 Tablet (of 20 mg) Oral daily Family History: Father is still living at approximately age 70 and in reasonably good health. Mother of heart disease at age 65. One brother is also in good health. A maternal aunt had cervical cancer. Social History: Mr. Mccormick is and he is an unknown. Mr. Mccormick no longer smokes. He drinks occasionally. He has indicated exposure to the following products: chewing tobacco and pipe. Mr. Mccormick reports the following support systems: lives with spouse, significant other, family, or friends, lives in own house, supportive family/friends willing to assist with needs, and adequate transportation available for expected visits. His diet consists of regular meals. He indicates his activity level as: regular exercise. He has history of smoking 1 pack of cigarettes daily off and on for 10 to 12 years. He quit smoking a couple of years ago. He still chews tobacco daily. He has just very occasional alcohol use. Review Of Symptoms: Constitutional Denies fevers, chills, night sweats, excessive fatigue or weight loss. Allergic/Immunologic No reactions. Eyes Denies significant visual changes. No diplopia. No amaurosis. ENMT Denies changes in hearing, sore throat, mouth sores, difficulty or changes in swallowing ability, and/or sinus drainage. Endocrine No diabetes, thyroid disease or hormone replacement. Denies hot flashes or night sweats. Hematologic/Lymphatic Denies easy bruising or bleeding. The patient denies any tender or palpable lymph nodes. Respiratory Denies dyspnea on exertion, chest pain, cough or hemoptysis. Denies orthopnea. Cardiovascular Denies anginal chest pain, palpitations or orthopnea. Gastrointestinal Denies nausea, vomiting, diarrhea, GI bleeding, or constipation. Denies change in bowel habits and/or stool color, no heartburn or early satiety. Genitourinary (M) Denies hematuria, dysuria, increased frequency, urgency, hesitancy or incontinence. Musculoskeletal Has persistent neck pain and bilateral arm (left worse than right) numbness intermittently since his last treatment of oxaliplatin on 02/19/2020. He denies swelling or redness. No decreased range of motion. Integumentary Denies chronic rashes, inflammation, ulcerations or skin changes. Neurologic Denies headache, blurred vision, and no areas of focal weakness or numbness. Normal gait. Some mild tingling in fingers with cold weather. Psychiatric Denies insomnia, depression, autumn or mood swings. Vital Signs: Performed on May 27, 2020 11:20 Height - 71.50 in Weight - 242.8 lbs (HIGH) BSA - 2.30 sq.m BMI - 33.39 (HIGH) Temperature - 98.6 F Pulse - 73 /min Respiration - 20 /min BP - 143/83 mm(hg) (HIGH) O2 Sat - 98 % Pain - 4,0 - Fully active, able to carry on all predisease activities without restrictions. (ECOG) Physical Examination: Constitutional Alert, oriented, no acute distress. Skin pink, warm and dry. Head Normocephalic; atraumatic. Eyes Conjunctivae and sclerae are clear and without icterus. Pupils are reactive and equal. Neck Supple without masses or thyromegaly. No jugular venous distension. Hematologic/Lymphatic No petechiae or purpura. No tender or palpable lymph nodes in the cervical or supraclavicular areas. Respiratory Lungs are clear to auscultation without rhonchi or wheezing. Cardiovascular Regular rate and rhythm of heart without murmurs,clicks, gallops or rubs. Back/Spine Non-tender to palpation. Extremities No visible deformities, no cyanosis, clubbing or edema. Musculoskeletal No tenderness or swelling, normal range of motion without obvious weakness. Integumentary No rashes or lesions. Neurologic No sensory or motor deficits, normal cerebellar function, normal gait. Psychiatric Alert and oriented times three. Coherent speech. Verbalizes understanding of our discussions today. Laboratory:Test performed on May 27, 2020 09:53 Sodium 138 mmol/L Potassium 3.6 mmol/L Chloride 100 mmol/L CO2 30 mmol/L Anion Gap 11.6 BUN 11 mg/dL Creatinine 1.0 mg/dL Cr Clearance (Est) 129.4800 mL/min eGFR 79.8 mL/min Glucose 89 mg/dL Osmolality - Calculated 285 mOsm/kg Calcium 9.7 mg/dL Protein, Total 7.2 g/dL Albumin 4.4 g/dL Globulin 2.8 g/dL Bilirubin, Total 0.5 mg/dL ALT (SGPT) 31 U/L AST (SGOT) 22 U/L Alkaline Phosphatase 74 IU/L WBC 6.6 10 3/uL RBC 5.27 10 6/uL HGB 15.7 g/dL HCT 47.3 % MCV 89.8 fL MCH 29.8 pg MCHC 33.2 g/dL RDW 12.2 % Platelet Count 186 10 3/cmm MPV 10.8 fL Neutrophils 3.85 10 3/uL Lymphocytes 1.9 10 3/uL Monocytes 0.5 10 3/uL Eosinophils 0.3 10 3/uL Basophils 0.1 10 3/uL Neutrophil % 58.3 % Lymphocyte % 28.1 % Monocyte % 7.4 % Eosinophil % 4.9 % Basophils % 0.8 % NRBC % 0 % CEA 1.4 ng/mL Test performed on Jan 29, 2020 09:24 Magnesium 2.3 mg/dL Impression: 1. 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 His tumor had intact nuclear expression of mismatch repair proteins. 2. He underwent laparoscopic left hemicolectomy on 11/28/2019. He had a significantly elevated preoperative CEA level. His other medical illnesses include: 3. Hypertension. 4. Nephrolithiasis. 5. Seasonal allergies. In the setting of stage IIIA disease he was recommended to undergo adjuvant chemotherapy with 4 cycles of oxaliplatin/Xeloda. He began cycle 1 on 01/08/2020. He tolerated that treatment well, and he continued with cycle 2 on 01/29/2020. Following the 2nd cycle, he had a little more fatigue and a little more nausea. His neuropathy symptoms also worsened, but they had resolved by the third week. He then continued with cycle 3 on 02/19/2020. He had significantly more side effects with that treatment, including nausea/vomiting for 4 to 5 days, but it also was complicated by right ureteral stone, requiring lithotripsy on 02/28/2020. However, in addition, he also had developed worsening neuropathy, which now persists in his hands. Mr. South he did 4 cycles of capecitabine and 3 cycles of XELOX. The oxaliplatin was admitted with cycle 4 due to side effects. He states his neuropathy is better. He has now completed full cycles of treatment as previously recommended. Plan: PROBLEMS ADDRESSED TODAY 1. moderately differentiated adenocarcinoma transverse colon stage IIIa. He underwent laparoscopic left hemicolectomy on 11/28/2019. He completed adjuvant chemotherapy with 4 cycles of Xeloda and 3 cycles of XELOX. The oxaliplatin was stopped early due to significant side effects including neuropathy. He had normalization of his CEA after 1 cycle of chemotherapy. A. He remains on observation with no signs of recurrence. B. Today's labs reviewed in detail discussed with Mr. Mccormick and a copy was given to him. WBC 6.6, hemoglobin 15.7, platelets 1 86,000 ANC is 3850. Potassium 3.6 creatinine 1.0 random glucose 89 LFTs are normal CEA is 1.4. C. He will need a [address] scan and a post treatment colonoscopy at 1 year. He will be due for imaging with his next followup. 2. Chronic neck pain A. We will refill his hydrocodone 01/23/2025 which is a dose increase per Dr. Castellanos's written prescription. He has been using 1-1/2-2 of the 5 mg to obtain relief. We discussed at length investigating his neck pain further. However he would like to wait to see if the further he recovers from the chemo, if this gets better. It is not completely affecting his ADLs as of yet but does limit him occasionally. 3. Followup Plan: A. We will plan to have him return in 2 months with CBC CMP CEA at which time he also be due for CT scanning of the chest abdomen pelvis both with contrast. This is just routine follow-up. B. Mr. Mccormick has been encouraged to contact us in interim should questions or problems arise or if he decides he wants us to go ahead and work-up the neck pain before his follow-up appointment. Signed By: Ministerio Shook-, CNP Chris Castellanos MD <<Signature on File>>
== END 2020-05-27 09:32 | disposition home or self-care (01) ==
PROVIDERS: PCP Family Medicine; Visit Provider Nurse Practitioner
DX: C18.4 Malignant neoplasm of transverse colon (principal); Z90.49 Acquired absence of other specified parts of digestive tract; G89.29 Other chronic pain; M54.2 Cervicalgia; Z79.891 Long term (current) use of opiate analgesic; Z92.21 Personal history of antineoplastic chemotherapy
CPT/HCPCS: 36415; 80053; 82378; 85025; 99214

== ENCOUNTER 2020-08-13 09:38 | Outpatient (CLI) | payer OTHER, SELFPAY ==
[2020-08-13 10:17] LABS: Basophils # 0.1 10^3/uL (0.0-0.1); Basophils % 0.8 %; Eosinophils # 0.2 10^3/uL (0.0-0.8); Eosinophils % 3.6 %; Hematocrit 46.3 % (42.0-52.0); Hemoglobin 15.6 g/dL (11.7-16.6); Lymphocytes # 1.8 10^3/uL (0.8-4.8); Lymphocytes % 26.7 %; Mean Corpuscular HGB Conc 33.7 g/dL (30.0-36.0); Mean Corpuscular Hemoglobin 29.3 pg (28.0-34.0); Monocytes # 0.5 10^3/uL (0.2-0.9); Monocytes % 7.6 %; Neutrophils # 4.03 10^3/uL (1.8-7.7); Neutrophils % 61.1 %; Nucleated Red Blood Cells % 0 %; Platelet Count 180 10^3/cmm (130-400); Red Blood Count 5.32 10^6/uL (4.1-5.3); Red Cell Distribution Width 12.6 % (12.1-15.1); White Blood Count 6.6 10^3/uL (4.0-10.0)
--- NOTE | 2020-08-13 10:18 | CT_ITS ---
WS: [id number] CT CHEST, ABDOMEN, AND PELVIS TECHNIQUE: Contrast-enhanced CT of the chest, abdomen, and pelvis with coronal and sagittal reformatt ed images. CLINICAL INFORMATION: COLORECTAL CANCER MONITORING COMPARISON: CT abdomen pelvis February 20, 2020, CT January 05, 2020, November 14, 2019 April 19, 201 9 DLP: 2505.[address] scans at [facility] use at least one of these dose optimization techniques: automat ed exposure control; mA and/or kV adjustment per patient size (includes targeted exams where dose is matched to clinical indication); or iterative reconstruction. CT CHEST: Proximal main pulmonary arteries are normal. Normal caliber thoracic aorta. Normal GE junction. No me diastinal or hilar lymphadenopathy. No axillary lymphadenopathy. Noncalcified 4 mm nodule in the ling bethanie. A few calcified granulomas. Tiny faint nodule in the right upper lobe measuring 3 mm. No other s uspicious pulmonary opacities. CT ABDOMEN AND PELVIS: Prior postoperative changes surgical resection transverse colon neoplasm with anastomosis. Diffuse fa tty infiltration the liver. Normal gallbladder. Normal spleen. Adrenal glands are normal. Normal rosalva l parenchymal enhancement. Incidental small left calyceal tip calculus. Normal pancreas. Normal GE junction. No abdominal lymphadenopathy. No pelvic or inguinal lymphadenopa thy. No evidence of high-grade small or large bowel obstruction. Tiny fat-containing umbilical hernia . CT/CT chest abd pel w con* IMPRESSION: 1. No definite evidence of metastatic disease in the chest abdomen or pelvis. 2. No mediastinal or hilar lymphadenopathy. No adenopathy in the abdomen and p juan josé. No inguinal lymphadenopathy. 3. Prior postoperative changes partial transverse colon resection for neoplasm . Normal anastomosis with adjacent fat necrosis is unchanged in appearance from previous. 4. Mild diffuse fatty infiltration of the liver. 5. 2 tiny noncalcified pulmonary nodules. Right upper lobe nodule is stable si nce May 06, 2019. Left lingula nodule is slightly more prominent today. Rec ommend 6 month follow-up CT chest.
[2020-08-13 10:47] LABS: Carcinoembryonic Antigen 1.3 ng/mL (0.0-4.7)
[2020-08-13 10:58] LABS: Alanine Aminotransferase 29 U/L (0-41); Albumin Level 4.4 g/dL (3.5-5.2); Alkaline Phosphatase 84 IU/L (40-130); Anion Gap 12.9 (5-19); Aspartate Amino Transferase 21 U/L (0-40); Blood Urea Nitrogen 11 mg/dL (6-20); Calcium 8.9 mg/dL (8.5-10.5); Carbon Dioxide 27 mmol/L (22-29); Chloride 102 mmol/L (98-107); Globulin 2.5 g/dL (1.3-4.6); Glomerular Filtration Rate 64.6 mL/min (90-130); Glucose 88 mg/dL (65-115); Osmolality Calculated 285 mOsm/kg (285-295); Potassium 3.9 mmol/L (3.5-5.1); Sodium 138 mmol/L (136-145); Total Bilirubin 0.6 mg/dL (0.15-1.2); Total Protein 6.9 g/dL (6.6-8.7)
[2020-08-13] MEDS: iohexol 300 mg/mL 100 mL Btl IV (11:57)
[2020-08-13] MEDS: iohexol 300 mg/mL 50 mL Btl PO (11:57)
== END 2020-08-13 09:39 | disposition home or self-care (01) ==
PROVIDERS: PCP Family Medicine; Visit Provider Nurse Practitioner
DX: C18.4 Malignant neoplasm of transverse colon (principal); K76.0 Fatty (change of) liver, not elsewhere classified; R91.8 Other nonspecific abnormal finding of lung field
CPT/HCPCS: 71260; 74177; 80053; 82378; 85025

== ENCOUNTER 2020-08-19 09:07 | Outpatient (CLI) | payer OTHER, SELFPAY ==
--- NOTE | 2020-08-20 16:31 | ONC FU_ITS ---
Dr. Castellanos Patient Follow-Up Note Patient: Charanjit Mccormick Unit #: [id number]: [id number] Dicatated By: Chris Castellanos M.D.Date of Visit:Aug 19, 2020 Onc Med Follow-up/Prog Note Chief Complaint: Colon cancer. 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 In March 2019 he had presented to the emergency room with hematochezia. His CT abdomen/pelvis showed mucosal thickening of the distal transverse and proximal descending colon with reported differential to include nonspecific colitis and neoplasm. He was treated empirically with ciprofloxacin and metronidazole. He was initially planned to have further evaluation with colonoscopy, but the procedure was deferred due to restrictions related to the coronavirus pandemic. On 11/14/2019 he returned to the emergency room with complaints of right flank pain radiating into the groin. A repeat CT abdomen/pelvis showed evidence of bilateral nephrolithiasis with an obstructing stone noted in the mid right ureter. Also noted on that study was a segment of abnormal thickening of the distal transverse colon which was felt to be worrisome for malignancy. A few small mildly prominent lymph nodes were noted in the adjacent mesentery. With that finding he was referred to Dr. Lopez. Colonoscopy on 11/27/2019 showed a circumferential obstructing mass in the distal transverse colon. The colonoscope was not able to be traversed beyond the mass. Biopsy was positive for well-differentiated adenocarcinoma. On 11/28/2019 he underwent laparoscopic left hemicolectomy. There was no gross evidence of metastatic disease. Pathology showed moderately differentiated adenocarcinoma measuring 5 x 3.5 x 3 cm. Tumor was noted to invade into the muscularis propria. Margins were uninvolved. There was evidence of lymphovascular invasion. There was involvement in 1 of 12 lymph nodes. There was intact nuclear expression of mismatch repair proteins by IHC. His baseline CEA level was significantly elevated at 162.5 ng/mL. He underwent adjuvant chemotherapy with 4 cycles of oxaliplatin/Xeloda from 01/08/2020 through 03/11/2020. Side effects included nausea, fatigue, and neuropathy. The latter was significant enough that oxaliplatin was omitted with the 4th cycle. He was followed expectantly following completion of the chemotherapy. His other medical illnesses include hypertension, GERD, and seasonal allergies. He does have a history of nephrolithiasis. He has a history of smoking 1 pack of cigarettes daily off and on for 10 to 12 years. He quit smoking a couple of years ago, but he still chews tobacco daily. INTERIM HISTORY: Surveillance CT scans of the chest, abdomen, and pelvis on 08/13/2020 showed no definite evidence of metastatic disease. Findings included 2 tiny noncalcified pulmonary nodules, one in the right upper lobe which appeared stable compared to the prior study from April 2019. A left lingula nodule appeared slightly more prominent. A 6-month follow-up study was recommended. He is seen for a follow-up visit. He has been feeling good generally. His blood pressure recently has been elevated, but he ran out of his blood pressure medication and he has not gotten it refilled yet. His only other complaint is that he has developed an abdominal hernia on the right side, and he is having some mild discomfort with it. He has good energy and he has normal activity. ECOG score is 0. His appetite is good. He has had significant weight gain. He does not have fever or night sweats. He has some seasonal allergy related sinus symptoms and he has occasional cough. He does not complain of shortness of breath or chest pain. He has no GI/ complaints other than his bowel movements now are a little more frequent. He has some chronic pain in his neck and right shoulder. He has just occasional headache. His neuropathy symptoms have completely resolved. Medications: Chlorpheniramine Maleate 1 Tablet (of 4 mg) Oral daily, Lisinopril-hydroCHLOROthiazide 1 Tablet (of 20-25 mg) Oral daily, LORazepam 1 Tablet (of 0.5 mg) Oral t.i.d., Multivitamin 1 Tablet Oral daily, Pepcid 1 Tablet (of 20 mg) Oral daily Allergies: No Known Allergies. Vital Signs: Performed on Aug 19, 2020 09:18 Height - 71.50 in Weight - 249.2 lbs (HIGH) BSA - 2.33 sq.m BMI - 34.27 (HIGH) Temperature - 99.3 F (HIGH) Pulse - 62 /min Respiration - 18 /min BP - 162/103 mm(hg) (HIGH) O2 Sat - 96 % Pain - 5 Fatigue - 0 Physical Examination: Constitutional - He looks good generally, Eyes - Sclerae nonicteric. Conjunctivae clear, ENMT - No lesions noted in the oral cavity, Hematologic/Lymphatic - No cervical, clavicular, or axillary adenopathy, Respiratory - Lungs are clear with good air movement bilaterally, Cardiovascular - Heart rhythm is regular. There is no murmur, gallop, or rub noted, Abdomen - Soft. There is a small ventral hernia in the mid abdomen just to the right of the midline. Liver and spleen are not enlarged. There is no abdominal mass or ascites noted and there is no inguinal adenopathy, Extremities - No edema, Neurologic - No focal neurologic deficits noted. Lab/Imaging: Test performed on May 27, 2020 09:53 Sodium 138 mmol/L Potassium 3.6 mmol/L Chloride 100 mmol/L CO2 30 mmol/L Anion Gap 11.6 BUN 11 mg/dL Creatinine 1.0 mg/dL Cr Clearance (Est) 129.4800 mL/min eGFR 79.8 mL/min Glucose 89 mg/dL Osmolality - Calculated 285 mOsm/kg Calcium 9.7 mg/dL Protein, Total 7.2 g/dL Albumin 4.4 g/dL Globulin 2.8 g/dL Bilirubin, Total 0.5 mg/dL ALT (SGPT) 31 U/L AST (SGOT) 22 U/L Alkaline Phosphatase 74 IU/L WBC 6.6 10 3/uL RBC 5.27 10 6/uL HGB 15.7 g/dL HCT 47.3 % MCV 89.8 fL MCH 29.8 pg MCHC 33.2 g/dL RDW 12.2 % Platelet Count 186 10 3/cmm MPV 10.8 fL Neutrophils 3.85 10 3/uL Lymphocytes 1.9 10 3/uL Monocytes 0.5 10 3/uL Eosinophils 0.3 10 3/uL Basophils 0.1 10 3/uL Neutrophil % 58.3 % Lymphocyte % 28.1 % Monocyte % 7.4 % Eosinophil % 4.9 % Basophils % 0.8 % NRBC % 0 % CEA 1.4 ng/mL Problem List: 1. Moderately differentiated adenocarcinoma of the distal transverse colon, Stage IIIA (T2, N1a, M0). His tumor had intact nuclear expression of mismatch repair proteins. 2. He underwent laparoscopic left hemicolectomy on 11/28/2019. He had a significantly elevated preoperative CEA level. 3. Hypertension. 4. Nephrolithiasis. 5. Seasonal allergies. Problems Addressed with this Encounter and Plan: 1. 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 His tumor had intact nuclear expression of mismatch repair proteins. He underwent laparoscopic left hemicolectomy on 11/28/2019. He had a significantly elevated preoperative CEA level. He underwent adjuvant chemotherapy with 4 cycles of oxaliplatin/Xeloda from 01/08/2020 through 03/11/2020. Side effects included nausea, fatigue, and neuropathy. The latter was significant enough that oxaliplatin was omitted with the 4th cycle. He is now being followed expectantly. He appears to be doing well clinically, though he has now developed a small abdominal hernia on the right side. His CT scans show 2 small pulmonary nodules. These are still nonspecific, but a 6-month follow-up study was recommended. Overall, he appears to be doing well clinically with no evidence of recurrence of the colon cancer. He remains on observation/expectant management. I will see him again with a repeat chest CT in 6 months. In the meantime, he will schedule follow-up with Dr. Lopez for evaluation of the hernia and for scheduling his surveillance colonoscopy. 2. Hypertension. His blood pressure is elevated today because he has run out of his medication. I will put 1 refill on it, and he will then follow-up with Dr. Stoddard. 3. He has chronic pain for which he has been taking hydrocodone/APAP. He will be given 1 refill for the pain medication and he will see Dr. Stoddard for further management. Signed By: Chris Castellanos M.D. <<Signature on File>>
== END 2020-08-19 09:08 | disposition home or self-care (01) ==
LOC: ONCMED 09:09
PROVIDERS: PCP Family Medicine; Visit Provider Internal Medicine Medical Oncology
DX: C18.4 Malignant neoplasm of transverse colon (principal); G62.0 Drug-induced polyneuropathy; T45.1X5A Adverse effect of antineoplastic and immunosuppressive drugs, initial encounter; I10 Essential (primary) hypertension; M54.2 Cervicalgia; N20.0 Calculus of kidney; J30.9 Allergic rhinitis, unspecified; Z79.899 Other long term (current) drug therapy
CPT/HCPCS: 99214

== ENCOUNTER 2021-02-10 09:25 | Outpatient (CLI) | payer OTHER, SELFPAY ==
--- NOTE | 2021-02-10 09:50 | CT_ITS ---
WS: [id number] CT CHEST TECHNIQUE: Noncontrast CT of the chest with coronal and sagittal reformatted images. CLINICAL INFORMATION: COLON CANCER/PULMONARY NODULES COMPARISON: CT chest 08/[address] January 05, 2020 DLP: 945.[address] scans at [facility] use at least one of these dose optimization techniques: automated e xposure control; mA and/or kV adjustment per patient size (includes targeted exams where dose is matc hed to clinical indication); or iterative reconstruction. FINDINGS: No mediastinal or hilar lymphadenopathy. Two noncalcified tiny pulmonary nodules right upper lobe and lingula. These are unchanged in appearance since August 13, 2020. Nodule in the lingula measures 4 mm . Nodule right upper lobe measures 3 mm. No other suspicious pulmonary parenchymal opacities. No acut e pulmonary infiltrates. Normal caliber thoracic aorta. Normal GE junction. No axillary lymphadenopat hy. Adrenal glands are normal. CT/CT chest wo con [id number] IMPRESSION: 1. Previously described tiny noncalcified nodules are unchanged. No evidence o f progressed disease. 2. No mediastinal or hilar lymphadenopathy. 3. No acute pulmonary infiltrates. 4. No other significant findings.
[2021-02-10 10:13] LABS: Basophils # 0.1 10^3/uL (0.0-0.1); Basophils % 0.8 %; Eosinophils # 0.2 10^3/uL (0.0-0.8); Eosinophils % 2.3 %; Hematocrit 52.9 % (42.0-52.0); Hemoglobin 17.6 g/dL (11.7-16.6); Lymphocytes # 2.3 10^3/uL (0.8-4.8); Lymphocytes % 26.3 %; Mean Corpuscular HGB Conc 33.3 g/dL (30.0-36.0); Mean Corpuscular Hemoglobin 27.9 pg (28.0-34.0); Mean Corpuscular Volume 83.8 fl (80-94); Mean Platelet Volume 11.3 fL (7.4-10.4); Monocytes # 0.6 10^3/uL (0.2-0.9); Monocytes % 6.4 %; Neutrophils # 5.61 10^3/uL (1.8-7.7); Neutrophils % 63.6 %; Nucleated Red Blood Cells % 0 %; Platelet Count 210 10^3/cmm (130-400); Red Blood Count 6.31 10^6/uL (4.1-5.3); Red Cell Distribution Width 12.8 % (12.1-15.1); White Blood Count 8.8 10^3/uL (4.0-10.0)
[2021-02-10 10:23] LABS: Alanine Aminotransferase 47 U/L (0-41); Albumin Level 4.6 g/dL (3.5-5.2); Alkaline Phosphatase 84 IU/L (40-130); Anion Gap 13.5 (5-19); Aspartate Amino Transferase 26 U/L (0-40); Blood Urea Nitrogen 12 mg/dL (6-20); Calcium 9.7 mg/dL (8.5-10.5); Carbon Dioxide 30 mmol/L (22-29); Chloride 97 mmol/L (98-107); Globulin 2.8 g/dL (1.3-4.6); Glomerular Filtration Rate 79.4 mL/min (90-130); Glucose 106 mg/dL (65-115); Osmolality Calculated 284 mOsm/kg (285-295); Potassium 3.5 mmol/L (3.5-5.1); Sodium 137 mmol/L (136-145); Total Bilirubin 0.5 mg/dL (0.15-1.2); Total Protein 7.4 g/dL (6.6-8.7)
== END 2021-02-10 09:26 | disposition home or self-care (01) ==
LOC: ONCMED 09:25
PROVIDERS: PCP Family Medicine; Visit Provider Internal Medicine Medical Oncology
DX: C18.4 Malignant neoplasm of transverse colon (principal); G62.0 Drug-induced polyneuropathy; T45.1X5D Adverse effect of antineoplastic and immunosuppressive drugs, subsequent encounter; I10 Essential (primary) hypertension; N20.0 Calculus of kidney; M54.2 Cervicalgia
CPT/HCPCS: 36415; 71250; 80053; 85025

== ENCOUNTER 2021-02-17 06:34 | Outpatient (CLI) | payer OTHER, SELFPAY ==
--- NOTE | 2021-02-17 09:33 | ONC FU_ITS ---
Dr. Castellanos Patient Follow-Up Note Patient: Charanjit Mccormick Unit #: [id number]: 1970 Dicatated By: Chris Castellanos M.D.Date of Visit:Feb 17, 2021 Onc Med Follow-up/Prog Note Chief Complaint: Colon cancer. 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 In March 2019 he had presented to the emergency room with hematochezia. His CT abdomen/pelvis showed mucosal thickening of the distal transverse and proximal descending colon with reported differential to include nonspecific colitis and neoplasm. He was treated empirically with ciprofloxacin and metronidazole. He was initially planned to have further evaluation with colonoscopy, but the procedure was deferred due to restrictions related to the coronavirus pandemic. On 11/14/2019 he returned to the emergency room with complaints of right flank pain radiating into the groin. A repeat CT abdomen/pelvis showed evidence of bilateral nephrolithiasis with an obstructing stone noted in the mid right ureter. Also noted on that study was a segment of abnormal thickening of the distal transverse colon which was felt to be worrisome for malignancy. A few small mildly prominent lymph nodes were noted in the adjacent mesentery. With that finding he was referred to Dr. Lopez. Colonoscopy on 11/27/2019 showed a circumferential obstructing mass in the distal transverse colon. The colonoscope was not able to be traversed beyond the mass. Biopsy was positive for well-differentiated adenocarcinoma. On 11/28/2019 he underwent laparoscopic left hemicolectomy. There was no gross evidence of metastatic disease. Pathology showed moderately differentiated adenocarcinoma measuring 5 x 3.5 x 3 cm. Tumor was noted to invade into the muscularis propria. Margins were uninvolved. There was evidence of lymphovascular invasion. There was involvement in 1 of 12 lymph nodes. There was intact nuclear expression of mismatch repair proteins by IHC. His baseline CEA level was significantly elevated at 162.5 ng/mL. He underwent adjuvant chemotherapy with 4 cycles of oxaliplatin/Xeloda from 01/08/2020 through 03/11/2020. Side effects included nausea, fatigue, and neuropathy. The latter was significant enough that oxaliplatin was omitted with the 4th cycle. He was followed expectantly following completion of the chemotherapy. His other medical illnesses include hypertension, GERD, and seasonal allergies. He does have a history of nephrolithiasis. He has a history of smoking 1 pack of cigarettes daily off and on for 10 to 12 years. He quit smoking a couple of years ago, but he still chews tobacco daily. INTERIM HISTORY: Surveillance CT scans of the chest, abdomen, and pelvis on 08/13/2020 showed no definite evidence of metastatic disease. Findings included 2 tiny noncalcified pulmonary nodules, one in the right upper lobe which appeared stable compared to the prior study from April 2019. A left lingula nodule appeared slightly more prominent. A 6-month follow-up study was recommended. Repeat chest CT on 02/10/2021 showed no change in the noncalcified pulmonary nodules in the right upper lobe and lingula compared to the July 2020 study. There were no other significant findings. He is seen for a follow-up visit. He had Covid 19 virus infection 3 months ago. He was significantly symptomatic, but not enough to require hospitalization or other treatment. His energy is still down slightly, but he is otherwise feeling good. ECOG score is 0. He has good appetite. He has no fever or night sweats. He has some seasonal allergies with associated sinus/nasal congestion. He does not complain of cough, and he has not been having shortness of breath or chest pain. He has some nausea, which he thinks may be associated with his abdominal hernia. His acid reflux is adequately managed with medication. Bowel and bladder function have been okay. He has a little joint pain, attributable to getting old . He has had some soreness in her right upper arm tendon. He has no other joint or bone pain. He has a few normal headaches. He has no residual neuropathy or other focal neurologic symptoms. Medications: Chlorpheniramine Maleate 1 Tablet (of 4 mg) Oral daily, Lisinopril-hydroCHLOROthiazide 1 Tablet (of 20-25 mg) Oral daily, LORazepam 1 Tablet (of 0.5 mg) Oral t.i.d., Multivitamin 1 Tablet Oral daily, Pepcid 1 Tablet (of 20 mg) Oral daily Allergies: No Known Allergies. Vital Signs: Performed on Feb 17, 2021 09:05 Height - 71.50 in Weight - 247.4 lbs (LOW) BSA - 2.32 sq.m BMI - 34.02 (HIGH) Temperature - 97.0 F (LOW) Pulse - 78 /min Respiration - 18 /min BP - 131/78 mm(hg) O2 Sat - 98 % Pain - 3 Fatigue - 2 Physical Examination: Constitutional - He looks good generally, Eyes - Sclerae nonicteric. Conjunctivae clear, ENMT - No lesions noted in the oral cavity, Hematologic/Lymphatic - No cervical, clavicular, or axillary adenopathy, Respiratory - Lungs are clear with good air movement bilaterally, Cardiovascular - Heart rhythm is regular. There is no murmur, gallop, or rub noted, Abdomen - Soft. There is a fairly large herniation in the lower abdomen to the right of the midline. Liver and spleen are not enlarged. There is no abdominal mass or ascites noted and there is no inguinal adenopathy, Extremities - No edema, Neurologic - No focal neurologic deficits noted. Lab/Imaging: Test performed on Feb 10, 2021 09:35 Sodium 137 mmol/L Potassium 3.5 mmol/L Chloride 97 mmol/L CO2 30 mmol/L Anion Gap 13.5 BUN 12 mg/dL Creatinine 1.0 mg/dL Cr Clearance (Est) 142.8700 mL/min eGFR 79.4 mL/min Glucose 106 mg/dL Osmolality - Calculated 284 mOsm/kg Calcium 9.7 mg/dL Protein, Total 7.4 g/dL Albumin 4.6 g/dL Globulin 2.8 g/dL Bilirubin, Total 0.5 mg/dL ALT (SGPT) 47 U/L AST (SGOT) 26 U/L Alkaline Phosphatase 84 IU/L WBC 8.8 10 3/uL RBC 6.31 10 6/uL HGB 17.6 g/dL HCT 52.9 % MCV 83.8 fl MCH 27.9 pg MCHC 33.3 g/dL RDW 12.8 % Platelet Count 210 10 3/cmm MPV 11.3 fL Neutrophils 5.61 10 3/uL Lymphocytes 2.3 10 3/uL Monocytes 0.6 10 3/uL Eosinophils 0.2 10 3/uL Basophils 0.1 10 3/uL Neutrophil % 63.6 % Lymphocyte % 26.3 % Monocyte % 6.4 % Eosinophil % 2.3 % Basophils % 0.8 % NRBC % 0 % Problem List: 1. Moderately differentiated adenocarcinoma of the distal transverse colon, Stage IIIA (T2, N1a, M0). His tumor had intact nuclear expression of mismatch repair proteins. 2. He underwent laparoscopic left hemicolectomy on 11/28/2019. He had a significantly elevated preoperative CEA level. 3. Hypertension. 4. Nephrolithiasis. 5. Seasonal allergies. 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 His tumor had intact nuclear expression of mismatch repair proteins. He underwent laparoscopic left hemicolectomy on 11/28/2019. He had a significantly elevated preoperative CEA level. He underwent adjuvant chemotherapy with 4 cycles of oxaliplatin/Xeloda from 01/08/2020 through 03/11/2020. Side effects included nausea, fatigue, and neuropathy. The latter was significant enough that oxaliplatin was omitted with the 4th cycle. He has been on expectant management following completion of the chemotherapy. He had some small pulmonary nodules noted on his surveillance chest CT scan, but those have been stable by follow-up CT. He has otherwise been doing well clinically, though he has developed a significant area of herniation in the lower abdomen to the right of the midline. Thus far there has been no evidence of recurrence of the colon cancer. He will continue expectant management. He is overdue for his surveillance colonoscopy, and that will be scheduled with Dr. Lopez. He can also have the abdominal hernia evaluated at that time. I will see him again in 6 months. Signed By: Chris Castellanos M.D. <<Signature on File>>
== END 2021-02-17 06:35 | disposition home or self-care (01) ==
LOC: ONCMED 06:35
PROVIDERS: PCP Family Medicine; Visit Provider Internal Medicine Medical Oncology
DX: Z08 Encounter for follow-up examination after completed treatment for malignant neoplasm (principal); Z85.038 Personal history of other malignant neoplasm of large intestine; I10 Essential (primary) hypertension; N20.0 Calculus of kidney; J30.9 Allergic rhinitis, unspecified; Z79.899 Other long term (current) drug therapy; Z92.21 Personal history of antineoplastic chemotherapy
CPT/HCPCS: G0463

== ENCOUNTER → 2021-02-22 10:40 | Outpatient (BNVA) | payer OTHER, SELFPAY | PROVIDERS: PCP Family Medicine; Referring Provider Internal Medicine Medical Oncology; Visit Provider Surgery | DX: Z20.822 Contact with and (suspected) exposure to COVID-19 (principal); C18.4 Malignant neoplasm of transverse colon; K21.9 Gastro-esophageal reflux disease without esophagitis | CPT/HCPCS: 87635 ==

== ENCOUNTER 2021-02-25 06:00 | Day surgery (SDC) | payer OTHER, SELFPAY ==
[2021-02-24 07:39] VITALS: BMI 33.2
[2021-02-25 06:16] VITALS: BP 147/97; PULSE 81; RESP 18; TEMP 36.7; O2SAT 95
[2021-02-25] MEDS: sodium chloride 0.9% 1,000 ML 30 ML IV (06:20)
--- NOTE | 2021-02-25 07:04 | ANES.PREANE2 ---
Pre-Anesthetic Assessment Pre-Anesthetic Assessment: Height/Weight: Height 6 ft Weight 111.13 kg Temp Pulse Resp BP Pulse Ox 98.0 F 81 18 147/97 95 02/25/21 06:16 02/25/21 06:16 02/25/21 06:16 02/25/21 06:16 02/25/21 06:16 Preop Diagnosis: gi Proposed Procedure: Operation Date: 02/25/21 07:00 Proposed Procedures p EGD/Colon 33262 K21.9(Not Applicable) - Brad Lopez MD s Colonoscopy 79808 C18.4(Not Applicable) - Brad Lopez MD Was Beta Cori taken within 24 hours: N/A Was Clonidine taken within 24 hours: N/A Last intake: Intake Last Liquid Date 02/24/21 Last Liquid Time 23:30 Last Solid Date 02/23/21 Last Solid Time 12:00 Social: Packs per day: THC [id number] Exam: Pre-Anes Outpt Exam: alert, oriented x 3, clear to auscultation bilaterally and regular rate & rhythm Airway: Submandibular: WNL Cervical ROM: WNL MP: 2 Meds/Allergies Current Medications: Current Medications Generic Name Dose Route Start Last Admin Trade Name Freq PRN Reason Stop Dose Admin Sodium Chloride 1,000 mls @ 30 ml s/hr 02/25/21 06:15 02/25/21 06:20 Sodium Chloride 0.9% IV 30 mls/hr .Q24H FEROZ Administration PFSH Anesthesia PFSH: Medical History (Updated 02/22/21 @ 10:31 by Brad Lopez MD) Cancer of transverse colon COVID-19 GERD (gastroesophageal reflux disease) Right distal ureteral calculus 5.3 mm right distal ureteral stone with obstruction and severe symptomatology requiring hospitalization and endoscopic lithotripsy. Did well Surgical History History of oral surgery Status post colonoscopy with polypectomy (11/27/19) Status post left hemicolectomy (11/28/19) Family History Grandmother Cancer Mother Diabetes Denies family history of Anesthesia complication Bleeding disorder Social History Smoking and tobacco status: former smoker Second hand smoke exposure: No Alcohol intake: current Alcohol intake frequency: holidays/special occasions only Alcohol type: beer Caregiver/support person: Yes Lives independently: Yes Housing: House Marital status: service: Yes branch: [employer] Current occupational status: employed History of recent travel: No Ana M/Christian: Orthodoxy Data Anesthesia Cardiac Studies: No Data to Display
--- NOTE | 2021-02-25 07:14 | W.PM.OPSUD ---
Surgery/Procedure H&P Update DATE OF PROCEDURE: February 25, 2021 DATE H&P PERFORMED: 02/22/21 H&P UPDATE INFORMATION: I have reviewed H&P completed within last 30 days, I have examined patient prior to procedure and No changes to prior documentation PREOP DIAGNOSIS: gi PLANNED PROCEDURE: Operation Date: 02/25/21 07:00 Proposed Procedures p EGD/Colon 06005 K21.9(Not Applicable) - Brad Lopez MD s Colonoscopy 50438 C18.4(Not Applicable) - Brad Lopez MD
[2021-02-25 07:37] VITALS: BP 122/85; PULSE 76; RESP 16; TEMP 36.7; O2SAT 94
[2021-02-25 07:57] VITALS: BP 131/77; PULSE 62; RESP 18; TEMP 36.6; O2SAT 94
== END 2021-02-25 08:10 | disposition home or self-care (01) ==
PROVIDERS: PCP Family Medicine; Visit Provider Surgery
PROC: 0DJ08ZZ Inspection of Upper Intestinal Tract, Via Natural or Artificial Opening Endoscopic (ICD-10-PCS; CPT 43235; principal; 2021-02-25 07:00)
PROC: 0DJD8ZZ Inspection of Lower Intestinal Tract, Via Natural or Artificial Opening Endoscopic (ICD-10-PCS; CPT 45378; 2021-02-25 07:00)
DX: C18.4 Malignant neoplasm of transverse colon (principal); K21.9 Gastro-esophageal reflux disease without esophagitis; K62.1 Rectal polyp; K29.60 Other gastritis without bleeding; Z86.16 Personal history of COVID-19; Z90.49 Acquired absence of other specified parts of digestive tract; Z87.891 Personal history of nicotine dependence
CPT/HCPCS: 45380; 88305; 96360; J2704; J7030

== ENCOUNTER 2021-07-19 16:55 | Emergency (ER) | payer OTHER, SELFPAY ==
[2021-07-19 17:05] VITALS: BP 175/111; PULSE 55; RESP 17; TEMP 36.7; O2SAT 97; BMI 33.9
--- NOTE | 2021-07-19 17:49 | CTR_ITS ---
PROCEDURE INFORMATION: Exam: CT Head Without Contrast Exam date and time: 07/19/2021 6:05 PM Age: 51 years old Clinical indication: Pain; Headache; Patient HX: Severe h/a w/ n/v; Additional info: Colon cancer TECHNIQUE: Imaging protocol: Computed tomography of the head without contrast. Radiation optimization: All CT scans at this facility use at least one of these dose optimization techniques: automated exposure control; mA and/or kV adjustment per patient size (includes targeted exams where dose is matched to clinical indication); or iterative reconstruction. COMPARISON: CT head wo con* [id number] 04/06/2018 6:55 AM RADIATION DOSE METRICS: Total DLP (mGy-cm): 953.87 FINDINGS: Brain: Normal. No hemorrhage. No edema. Unremarkable white matter. No mass effect. Cerebral ventricles: No ventriculomegaly. Paranasal sinuses: Visualized sinuses are unremarkable. No fluid levels. Mastoid air cells: Visualized mastoid air cells are well aerated. Bones/joints: Unremarkable. No acute fracture. Soft tissues: Unremarkable. CT/CT head wo con* [id number] IMPRESSION: No acute intracranial abnormality.
--- NOTE | 2021-07-19 19:01 | W.ED.HA ---
HPI - Headache General: Chief Complaint: Headache Stated Complaint: SEVERE HEADACHE, N/V Time Seen by Provider: 07/19/21 18:56 History of Present Illness: Patient arrives via ambulance complaint of a headache that started this morning is had vomiting with that. Patient has been out of his blood pressure medicine for few weeks also. Patient denies any other symptoms besides pain in the back of his neck that radiates up to the head and behind the eyes. Patient is under a lot of stress presently. Associated symptoms: Reports vomiting; Deny chest pain, fever(s), nausea or rash Review of Systems Const: Denies: fever(s), chills or body aches Eyes: Denies: eye discomfort ENMT: Denies: throat pain Card: Denies: chest pain Resp: Denies: dyspnea GI: Reports: vomiting; Denies: abdominal pain or nausea Musc: Reports: neck pain Skin/Breast: Denies: rash Neuro: Denies: headache(s) Psych: Reports: other (Stress); Denies: depression or suicidal ideation PFSH ED PFSH: Medical History (Updated 07/19/21 @ 19:14 by DINORAH Gonzalez) Cancer of transverse colon COVID-19 GERD (gastroesophageal reflux disease) Right distal ureteral calculus 5.3 mm right distal ureteral stone with obstruction and severe symptomatology requiring hospitalization and endoscopic lithotripsy. Did well Surgical History (Updated 02/25/21 @ 07:40 by Brad Lopez MD) H/O esophagogastroduodenoscopy (02/25/21) Gastritis History of oral surgery Status post colonoscopy with polypectomy (02/25/21) 2019 - transverse colon ca 2020 - rectal polyp Status post left hemicolectomy (11/28/19) Family History Grandmother Cancer Mother Diabetes Denies family history of Anesthesia complication Bleeding disorder Social History Smoking and tobacco status: former smoker Second hand smoke exposure: No Alcohol intake: current Alcohol intake frequency: holidays/special occasions only Alcohol type: beer Caregiver/support person: Yes Lives independently: Yes Housing: House Marital status: service: Yes branch: [employer] Current occupational status: employed History of recent travel: No Ana M/Pentecostalism: Lutheran Physical Exam Const: COMMON NORMALS: no acute distress, patient oriented x3 and alert HENMT: COMMON NORMALS: normocephalic and external ears normal HEAD & SCALP: normocephalic EXTERNAL EAR: Yes external ears normal Eye: COMMON NORMALS: EOMs intact bilaterally Neck/C-Spine: COMMON NORMALS: no JVD OTHER: Trapezius are tight and sore, muscles back and neck are sore also. Resp: COMMON NORMALS: normal respiratory effort and No use of accessory muscles Cardio: COMMON NORMALS: no JVD GI: INSPECTION: Yes normal to inspection Extremity: COMMON NORMALS: normal to inspection and full ROM Neuro: COMMON NORMALS: patient oriented x3 SENSORIUM/ORIENTATION: Yes alert PUPIL EXAM: Normal pupillary reactivity/response: bilateral Psych: COMMON NORMALS: mental status grossly normal Skin: COMMON NORMALS: no rashes or lesions noted GENERAL SKIN EXAM: no rashes or lesions noted Course Vital Signs: Vital signs: Vital Signs Temperature 98.1 F 07/19/21 17:05 Pulse Rate 90 07/19/21 20:06 Respiratory Rate 18 07/19/21 20:06 Blood Pressure 166/102 07/19/21 20:06 Pulse Oximetry 97 07/19/21 20:06 MDM - Headache Medical Decision Making Patient arrives via ambulance complaining about neck pain started this morning he has been having episodes of this over the last few weeks. Had some vomiting with it this morning. Vomiting is cleared up now. Patient has signs symptoms consistent with tension type headache. Patient was given medication that helped relieve most of the pain. Patient is follow-up primary care provider take medication as prescribed. Lab Data Radiology Impressions Head CT 07/19/21 17:49 IMPRESSION: No acute intracranial abnormality. Discharge Plan Discharge Patient Disposition: Home Clinical Impression: Tension headache Condition: Stable Prescriptions: New lisinopril-hydrochlorothiazide 20-25 mg tablet 1 tab PO DAILY Qty: 30 0RF Fioricet 50-300-40 mg capsule 1 cap PO Q6H PRN (Reason: pain) Qty: 14 0RF No Action lisinopril-hydrochlorothiazide 20-25 mg tablet 1 tab PO DAILY 0RF multivitamin [Multiple Vitamins] Tablet 1 tab PO DAILY 0RF famotidine [Pepcid] 20 mg Tablet 20 mg PO DAILY 0RF hydrocodone-acetaminophen 5-325 mg Tablet 1 tab PO Q6H PRN (Reason: Moderate Pain) Qty: 20 0RF Discharge Orders: Discharge ED (Routine); Ordered 07/19/21 Ordered By: Young Solano Referrals: Lauri Stoddard DO [Primary Care Provider] - Discharge Diet: Usual diet Discharge Activity: Increase activity as tolerated Patient Instructions: Tension Headache (ED) Activity Restrictions/Additional Instructions: Follow-up with medical provider as directed. Take medications as prescribed. Return to the ER or your medical provider if condition worsens. Please read and understand discharge instructions. If any questions ask please. Coding Level of Care Code ED Speech Pathology Assistant for Maryg Fwd Exam Comprehensive
[2021-07-19] MEDS: ketorolac 30 mg/mL INJ IVP (19:22)
[2021-07-19] MEDS: orphenadrine 30 mg/mL Inj 2 mL 60 MG IVP (19:22)
[2021-07-19 20:06] VITALS: BP 166/102; PULSE 90; RESP 18; O2SAT 97
== END 2021-07-19 20:08 | disposition home or self-care (01) ==
PROVIDERS: Emergency Provider Nurse Practitioner Family; PCP Family Medicine
DX: G44.209 Tension-type headache, unspecified, not intractable (principal); Z79.891 Long term (current) use of opiate analgesic; Z87.891 Personal history of nicotine dependence; Z90.49 Acquired absence of other specified parts of digestive tract; Z85.038 Personal history of other malignant neoplasm of large intestine
CPT/HCPCS: 70450; 99283; J1885; J2360

== ENCOUNTER 2021-09-01 12:45 | Oncology outpatient (recurring) (ONCR) | payer OTHER, SELFPAY ==
--- NOTE | 2021-08-25 11:43 | CT_ITS ---
WS: [id number] CT ABDOMEN AND PELVIS. IV CONTRAST ONLY. HISTORY: COLON CANCER TECHNIQUE: Single phase imaging performed through the abdomen and pelvis during intravenous contrast injection. All CT scans at [facility] use at least one of these dose optimization techniques : automated exposure control; mA and/or kV adjustment per patient size (includes targeted exams where dose is matched to clinical indication); or iterative reconstruction. CONTRAST: Omnipaque 350; 95 mL IV. DLP: 1353.53 mGy.cm COMPARISON: 08/13/2020 4 mm noncalcified nodule the lingula unchanged in size. Stable since 04/19/2019 Heart size is normal. No significant hiatal hernia. Liver: Low-attenuation lesion in the RIGHT hepatic lobe just anterior to the gallbladder measures 3.8 x 3.4 cm. Additional background of hepatic steatosis. No bile duct dilatation. Gallbladder: Normal. Pancreas: Normal. Spleen: Normal. Adrenals: Normal. Right kidney: Normal size kidney. Well-circumscribed low-attenuation 5 mm nodule upper pole is too sm all to characterize. Nonobstructing calcification lower pole. Left kidney: Normal size and density. 2 small to characterize hypodensity in the lower pole. Nonobstr ucting calcifications in the renal pelvis. Abdominal Aorta: Normal. Abdomen wall: Moderate size ventral abdominal wall hernia extends just greatest to the RIGHT of midl ine. Orifice measures 5.7 cm. There is a loop of nondilated small bowel extending into the hernia. Free air or free fluid: None. Lymphadenopathy: None. GI tract: Partial transverse colon resection. Anastomotic sutures are identified. There is no recurre nt mass at the site of the anastomosis. No adenopathy. Normal appendix. Pelvis: Moderately well distended urinary bladder. Very mild heterogeneity of the prostate gland. No inguinal lymph nodes. Osseous structures: Degenerative disc disease at L5-S1. CT/CT abdomen pelvis w con* [id number] IMPRESSION: 1. New area of decreased attenuation in the RIGHT lobe of the liver suspicious for metastatic lesion. Liver abnormality measures 3.8 x 3.4 cm. Additional maggie kground of hepatic steatosis. As this is a very subtle, almost infiltrative are a of abnormality consider follow-up ultrasound evaluation to exclude hepatic st eatosis as the etiology. 2. Partial transverse colon resection with the anastomosis intact. 3. No adenopathy. 4. Ventral abdominal wall hernia contains a nonobstructed loop of small bowel . 5. Stable lingular 4 mm nodule.
[2021-08-25] MEDS: iohexol 350 mg/mL 100 mL Btl IV (12:17)
[2021-09-01 12:54] LABS: Basophils % 0.5 %; Eosinophils # 0.2 10^3/uL (0.0-0.8); Eosinophils % 2.6 %; Hemoglobin 15.5 g/dL (11.7-16.6); Lymphocytes # 1.7 10^3/uL (0.8-4.8); Lymphocytes % 21.1 %; Mean Corpuscular HGB Conc 33.7 g/dL (30.0-36.0); Mean Corpuscular Hemoglobin 28.9 pg (28.0-34.0); Mean Corpuscular Volume 85.8 fl (80-94); Mean Platelet Volume 11.1 fL (7.4-10.4); Monocytes # 0.6 10^3/uL (0.2-0.9); Monocytes % 7.2 %; Neutrophils # 5.34 10^3/uL (1.8-7.7); Neutrophils % 68.2 %; Nucleated Red Blood Cells % 0 %; Platelet Count 183 10^3/cmm (130-400); Red Blood Count 5.36 10^6/uL (4.1-5.3); Red Cell Distribution Width 12.7 % (12.1-15.1); White Blood Count 7.8 10^3/uL (4.0-10.0)
[2021-09-01 13:33] LABS: Carcinoembryonic Antigen 1.4 ng/mL (0.0-4.7)
[2021-09-01 13:44] LABS: Alanine Aminotransferase 33 U/L (0-41); Albumin Level 4.4 g/dL (3.5-5.2); Alkaline Phosphatase 76 IU/L (40-130); Anion Gap 15.5 (5-19); Aspartate Amino Transferase 23 U/L (0-40); Blood Urea Nitrogen 9 mg/dL (6-20); Calcium 9.3 mg/dL (8.5-10.5); Carbon Dioxide 23 mmol/L (22-29); Chloride 103 mmol/L (98-107); Globulin 2.7 g/dL (1.3-4.6); Glomerular Filtration Rate 79.4 mL/min (90-130); Glucose 93 mg/dL (65-115); Osmolality Calculated 284 mOsm/kg (285-295); Potassium 3.5 mmol/L (3.5-5.1); Sodium 138 mmol/L (136-145); Total Bilirubin 0.6 mg/dL (0.15-1.2); Total Protein 7.1 g/dL (6.6-8.7)
== END 2021-09-20 23:59 | disposition home or self-care (01) ==
PROVIDERS: PCP Family Medicine; Visit Provider Internal Medicine Medical Oncology
DX: C18.4 Malignant neoplasm of transverse colon (principal); G62.0 Drug-induced polyneuropathy; T45.1X5A Adverse effect of antineoplastic and immunosuppressive drugs, initial encounter; I10 Essential (primary) hypertension; M54.2 Cervicalgia; N20.0 Calculus of kidney
CPT/HCPCS: 36415; 71260; 74177; 80053; 82378; 85025

== ENCOUNTER 2022-07-21 10:08 | Outpatient (CLI) | payer OTHER, SELFPAY ==
--- NOTE | 2022-07-21 10:30 | CT_ITS ---
WS: [id number] CT ABDOMEN AND PELVIS WITH CONTRAST HISTORY: History of colon cancer. TECHNIQUE: Imaging performed of the abdomen and pelvis with IV contrast. Single phase imaging of the abdomen. Coronal and sagittal reformats are submitted. All CT scans at [facility] use at [address] one of these dose optimization techniques: automated exposure control; mA and/or kV adjustment per patient size (includes targeted exams where dose is matched to clinical indication); or iterative re construction. IV CONTRAST: Omnipaque 350; 100 mL IV. Oral contrast: Yes. DLP: 832.43 mGy.cm COMPARISON: 08/25/2021 Lower thorax: Noncalcified stable 4 mm nodule in the lingula. Heart is normal size. Small hiatal kinjal ia. Liver/biliary system: Normal size liver. The area of decreased attenuation adjacent to the gallbladde r is no longer present. No suspicious findings for metastatic disease. Gallbladder: Normal. No gallstones or wall thickening. No pericholecystic fluid. Pancreas: Normal size pancreas and pancreatic duct. No adjacent inflammation. Spleen: Normal size spleen. No mass or infarct. Adrenal glands: Normal. Right kidney: Too small to characterize hypodensities. No obstruction or solid mass. Left kidney: Nonobstructing calcifications. No solid mass. Cortical hypodensities are too small to ch aracterize. Aorta: Mild atherosclerosis with no aneurysm. Lymphadenopathy: None. Free fluid: None. GI tract: Normal stomach. No small bowel obstruction. Transverse colon anastomotic site is stable. No recurrent soft tissue. No obstruction. Abdominal wall: Fat containing umbilical hernia. Pelvis: No free fluid or adenopathy within the pelvis. Inguinal canals are patent bilaterally contain ing fat only. Negative urinary bladder. Mild prostate heterogeneity. Bones: This space narrowing at L5-S1. CT/CT abdomen pelvis w con* [id number] IMPRESSION: 1. No evidence for metastatic disease within the liver or adrenal glands. Prev iously described decreased attenuation in the liver is no longer present. 2. Stable transverse colon anastomotic site. No obstruction or recurrent mass. 3. No ascites or adenopathy. 4. No change 4 mm lingular nodule.
[2022-07-21] MEDS: iohexol 350 mg/mL 500 mL Btl (per mL) PO (10:50)
[2022-07-21] MEDS: iohexol 350 mg/mL 500 mL Btl (per mL) IV (10:50)
== END 2022-07-21 10:09 | disposition home or self-care (01) ==
PROVIDERS: PCP Family Medicine; Visit Provider Internal Medicine Medical Oncology
DX: Z85.038 Personal history of other malignant neoplasm of large intestine
CPT/HCPCS: 74177; Q9967

== ENCOUNTER 2022-07-28 07:39 | Oncology outpatient (recurring) (ONCR) | payer OTHER, SELFPAY ==
[2022-07-28 08:33] LABS: Basophils # 0.1 10^3/uL (0.0-0.1); Basophils % 0.7 %; Eosinophils # 0.2 10^3/uL (0.0-0.8); Eosinophils % 3.1 %; Hematocrit 48.9 % (42.0-52.0); Hemoglobin 16.3 g/dL (11.7-16.6); Lymphocytes # 2.1 10^3/uL (0.8-4.8); Mean Corpuscular HGB Conc 33.3 g/dL (30.0-36.0); Mean Corpuscular Hemoglobin 28.1 pg (28.0-34.0); Mean Corpuscular Volume 84.3 fl (80-94); Mean Platelet Volume 10.6 fL (7.4-10.4); Monocytes # 0.5 10^3/uL (0.2-0.9); Monocytes % 7.1 %; Neutrophils # 4.46 10^3/uL (1.8-7.7); Neutrophils % 60.8 %; Nucleated Red Blood Cells % 0 %; Platelet Count 218 10^3/cmm (130-400); Red Cell Distribution Width 12.9 % (12.1-15.1); White Blood Count 7.3 10^3/uL (4.0-10.0)
[2022-07-28 09:00] LABS: Carcinoembryonic Antigen 1.5 ng/mL (0.0-4.7)
[2022-07-28 09:11] LABS: Alanine Aminotransferase 30 U/L (0-41); Albumin Level 4.1 g/dL (3.5-5.2); Alkaline Phosphatase 76 U/L (40-130); Anion Gap 16.8 (5-19); Aspartate Amino Transferase 20 U/L (0-40); Blood Urea Nitrogen 7 mg/dL (6-20); Calcium 9.1 mg/dL (8.5-10.5); Carbon Dioxide 23 mmol/L (22-29); Chloride 105 mmol/L (98-107); Globulin 2.9 g/dL (1.3-4.6); Glomerular Filtration Rate 70.9 mL/min (90-130); Glucose 88 mg/dL (65-115); Osmolality Calculated 289 mOsm/kg (285-295); Potassium 3.8 mmol/L (3.5-5.1); Sodium 141 mmol/L (136-145); Total Bilirubin 0.2 mg/dL (0.15-1.2)
== END 2022-08-20 23:59 | disposition home or self-care (01) ==
LOC: ONCMED 07:39
PROVIDERS: PCP Family Medicine; Visit Provider Internal Medicine Medical Oncology
DX: C18.4 Malignant neoplasm of transverse colon (principal)
CPT/HCPCS: 80053; 82378; 85025

== ENCOUNTER 2022-08-07 19:21 | Emergency (ER) | payer OTHER, SELFPAY ==
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
[2022-08-07 19:49] VITALS: BP 156/102; PULSE 102; RESP 18; O2SAT 96; BMI 23.7
[2022-08-07] MEDS: tetanus-dipt-pertussis 0.5 mL SDV IM (20:10)
[2022-08-07 20:13] VITALS: BP 159/104; PULSE 80; RESP 16; O2SAT 97
[2022-08-07 20:15] VITALS: O2SAT 94
[2022-08-07 21:10] VITALS: BP 132/94; PULSE 91; RESP 16; O2SAT 98
[2022-08-07 22:29] LABS: Alcohol Level < 10 mg/dL (0-10)
--- NOTE | 2022-08-11 11:16 | DCPLANNER ---
manager retail called patient due to no primary care physician - no answer at this time.
== END 2022-08-07 22:22 | disposition home or self-care (01) ==
PROVIDERS: Emergency Provider Emergency Medicine
DX: S60.812A Abrasion of left wrist, initial encounter (principal); W22.11XA Striking against or struck by driver side automobile airbag, initial encounter; V86.01XA Driver of ambulance or fire engine injured in traffic accident, initial encounter; I10 Essential (primary) hypertension; Z87.891 Personal history of nicotine dependence; Z23 Encounter for immunization
CPT/HCPCS: 73110; 80307; 90471; 90715; 99283

== ENCOUNTER 2022-12-11 07:27 | Outpatient (CLI) | payer OTHER, SELFPAY ==
--- NOTE | 2022-12-11 09:00 | CT_ITS ---
WS: [id number] CT ABDOMEN PELVIS TECHNIQUE: Contrast-enhanced CT of the abdomen and pelvis with coronal and sagittal reformatted image s. CLINICAL INFORMATION: Colon cancer COMPARISON: 2022 DLP: 683.[address] scans at [facility] use at least one of these dose optimization techniques: automated e xposure control; mA and/or kV adjustment per patient size (includes targeted exams where dose is matc hed to clinical indication); or iterative reconstruction. FINDINGS: Prior postoperative change subtotal transverse colon resection with anastomosis. Lung bases are well aerated. Stable small 4 mm nodule in the lingula. Diffuse fatty filtration of the liver. Normal joselito l vein and splenic vein. Normal spleen. Small esophageal hiatal hernia. Tiny low-attenuation lesion near the joselito hepatis on the undersurface of the liver unchanged since 08/25/2021 likely incidental. Additional ill-defined area of decreased attenuation in the RIGHT hepatic lobe also unchanged and may represent incidental focal fat. This area measures approximately 2.5 x 2 .0 cm. Gallbladder is contracted. Normal pancreatic parenchymal enhancement. Adrenal glands are normal. Yesica ac and SMA are patent. Normal renal parenchymal enhancement. No hydronephrosis. Small RIGHT renal cys t. Normal caliber abdominal aorta. Mild aortic calcification. Prostate measures 4.5 cm. Tiny fat-cont aining umbilical hernia. Normal transverse colon anastomosis. Disc base narrowing L5-S1. IMPRESSION: 1. Previously described liver lesions are stable since 08/25/2021 described above. Stability is reassu ring but recommend continued surveillance. 2. No new liver lesions. Mild diffuse fatty infiltration of liver. 3. Small esophageal hernia. 4. Stable transverse colon anastomosis. 5. Mild prominence of the prostate measuring 4.5 cm. Recommend correlation PSA. 6. Small stable 4 mm nodule in the lingula. 7. No other suspicious findings.
[2022-12-11] MEDS: iohexol 350 mg/mL 500 mL Btl (per mL) IV (09:11)
== END 2022-12-11 07:28 | disposition home or self-care (01) ==
PROVIDERS: PCP Family Medicine; Visit Provider Internal Medicine Medical Oncology
DX: C18.4 Malignant neoplasm of transverse colon (principal); K76.9 Liver disease, unspecified; K76.0 Fatty (change of) liver, not elsewhere classified; K44.9 Diaphragmatic hernia without obstruction or gangrene; R91.1 Solitary pulmonary nodule; N42.9 Disorder of prostate, unspecified
CPT/HCPCS: 74177; Q9967

== ENCOUNTER 2023-08-02 10:51 | Outpatient (CLI) | payer OTHER, SELFPAY ==
--- NOTE | 2023-08-02 12:00 | CT_ITS ---
WS: [id number] CT ABDOMEN AND PELVIS WITH CONTRAST HISTORY: H/O colon cancer TECHNIQUE: Imaging performed of the abdomen and pelvis with IV contrast. Single phase imaging of the abdomen. Coronal and sagittal reformats are submitted. All CT scans at [facility] use at [address] one of these dose optimization techniques: automated exposure control; mA and/or kV adjustment per patient size (includes targeted exams where dose is matched to clinical indication); or iterative re construction. IV CONTRAST: Omnipaque 350; 100 mL IV. Oral contrast: Yes. DLP: 849.29 mGy.cm COMPARISON: 12/11/2022, 07/21/2022 Lower thorax: Stable 4 mm nodule at the lingula. Heart is normal size. Small hiatal hernia. Liver/biliary system: Liver is normal size. Previously described metastatic sites in the liver contin ue to improved and become less conspicuous. There is one residual 1.3 cm low-attenuation nodule remai dolores adjacent to the falciform ligament. No new mass. Normal portal vein. Gallbladder: Normal. No gallstones or wall thickening. No pericholecystic fluid. Pancreas: Normal size pancreas and pancreatic duct. No adjacent inflammation. Spleen: Normal size spleen. No mass or infarct. Adrenal glands: Normal. Right kidney: Nonobstructing 3 mm calcification lower pole. Tiny cortical cyst upper pole. No obstruc tion. No solid mass. Left kidney: Normal size kidney. Nonobstructing calcifications. Cortical cysts are unchanged. No doreen d mass or obstruction. Aorta: Mild atherosclerosis with no aneurysm. Lymphadenopathy: None. Free fluid: None. GI tract: No GI tract obstruction. Stomach is negative. No small bowel obstruction. No recurrent mass . Transverse colon anastomotic site normal. Abdominal wall: Mild diastases of the rectus muscle. No hernia. Pelvis: No free fluid or adenopathy within the pelvis. Bilateral patent inguinal canals contain fat o nly. Bones: Unremarkable. IMPRESSION: 1. Stable transverse colon anastomotic site. No adenopathy or recurrent mass. 2. Continued improvement in the metastatic sites within the liver. There is one residual low-attenua tion area measuring 1.3 cm adjacent to the falciform ligament which is stable. There are no new or en larging masses within the liver suspicious for metastatic disease. 3. No ascites. 4. No adrenal mass.
[2023-08-02] MEDS: iohexol 350 mg/mL 500 mL Btl (per mL) PO (12:33)
[2023-08-02] MEDS: iohexol 350 mg/mL 500 mL Btl (per mL) IV (12:33)
== END 2023-08-02 10:52 | disposition home or self-care (01) ==
LOC: RAD 10:51
PROVIDERS: PCP Family Medicine; Visit Provider Internal Medicine Medical Oncology
DX: C18.4 Malignant neoplasm of transverse colon (principal); C78.7 Secondary malignant neoplasm of liver and intrahepatic bile duct
CPT/HCPCS: 74177; Q9967

== ENCOUNTER 2023-08-13 09:17 | Oncology outpatient (recurring) (ONCR) | payer OTHER, SELFPAY ==
[2023-08-13 09:40] LABS: Basophils # 0.1 10^3/uL (0.0-0.1); Basophils % 0.9 %; Eosinophils # 0.2 10^3/uL (0.0-0.8); Eosinophils % 2.8 %; Hematocrit 52.1 % (37-53); Lymphocytes # 2.4 10^3/uL (0.8-4.8); Lymphocytes % 29.5 %; Mean Corpuscular HGB Conc 33.6 g/dL (30-55); Mean Corpuscular Volume 86.4 fl (82-101); Mean Platelet Volume 10.9 fL (7.4-10.4); Monocytes # 0.5 10^3/uL (0.2-0.9); Monocytes % 6.4 %; Neutrophils # 4.82 10^3/uL (1.8-7.7); Neutrophils % 60.3 %; Nucleated Red Blood Cells % 0 %; Platelet Count 225 10^3/cmm (157-399); Red Blood Count 6.03 10^6/uL (3.85-5.65); White Blood Count 7.99 10^3/uL (3.29-11.43)
[2023-08-13 10:09] LABS: Carcinoembryonic Antigen 1.7 ng/mL (0.0-4.7)
[2023-08-13 10:20] LABS: Alanine Aminotransferase 35 U/L (0-41); Albumin Level 4.3 g/dL (3.5-5.2); Alkaline Phosphatase 79 U/L (40-130); Anion Gap 14.4 (5-19); Aspartate Amino Transferase 21 U/L (0-40); Blood Urea Nitrogen 11 mg/dL (6-20); Calcium 9.3 mg/dL (8.5-10.5); Carbon Dioxide 29 mmol/L (22-29); Chloride 99 mmol/L (98-107); Globulin 2.9 g/dL (1.3-4.6); Glomerular Filtration Rate 63.8 mL/min (90-130); Glucose 116 mg/dL (65-115); Osmolality Calculated 288 mOsm/kg (285-295); Potassium 3.4 mmol/L (3.5-5.1); Sodium 139 mmol/L (136-145); Total Bilirubin 0.5 mg/dL (0.15-1.2); Total Protein 7.2 g/dL (6.6-8.7)
== END 2023-08-21 23:59 | disposition home or self-care (01) ==
PROVIDERS: Internal Medicine; PCP Family Medicine; Visit Provider Internal Medicine Medical Oncology
DX: C18.4 Malignant neoplasm of transverse colon; Z92.21 Personal history of antineoplastic chemotherapy; Z85.038 Personal history of other malignant neoplasm of large intestine; Z79.899 Other long term (current) drug therapy
CPT/HCPCS: 36415; 80053; 82378; 85025

== ENCOUNTER → 2024-02-13 15:41 | Outpatient (BNVA) | payer OTHER, SELFPAY | PROVIDERS: PCP Nurse Practitioner Family; Visit Provider Nurse Practitioner Family | DX: I10 Essential (primary) hypertension (principal) | CPT/HCPCS: 80053; 80061; 84443; 85025 ==

== ENCOUNTER 2024-02-18 13:26 | Oncology outpatient (recurring) (ONCR) | payer OTHER, SELFPAY ==
[2024-02-18 13:54] LABS: Basophils # 0.1 10^3/uL (0.0-0.1); Basophils % 0.8 %; Eosinophils # 0.2 10^3/uL (0.0-0.8); Eosinophils % 2.1 %; Hematocrit 50.5 % (37-53); Lymphocytes # 1.5 10^3/uL (0.8-4.8); Lymphocytes % 19.4 %; Mean Corpuscular HGB Conc 32.9 g/dL (30-55); Mean Corpuscular Hemoglobin 27.8 pg (27-33); Mean Corpuscular Volume 84.6 fl (82-101); Mean Platelet Volume 10.2 fL (7.4-10.4); Monocytes # 0.5 10^3/uL (0.2-0.9); Monocytes % 6.4 %; Neutrophils # 5.63 10^3/uL (1.8-7.7); Neutrophils % 70.9 %; Nucleated Red Blood Cells % 0 %; Platelet Count 221 10^3/cmm (157-399); Red Blood Count 5.97 10^6/uL (3.85-5.65); Red Cell Distribution Width 13.2 % (12.1-15.1); White Blood Count 7.94 10^3/uL (3.29-11.43)
[2024-02-18 14:21] LABS: Carcinoembryonic Antigen 1.8 ng/mL (0.0-4.7)
[2024-02-18 14:32] LABS: Alanine Aminotransferase 25 U/L (0-41); Albumin Level 4.3 g/dL (3.5-5.2); Alkaline Phosphatase 92 U/L (40-130); Aspartate Amino Transferase 18 U/L (0-40); Blood Urea Nitrogen 9 mg/dL (6-20); Calcium 9.1 mg/dL (8.5-10.5); Carbon Dioxide 31 mmol/L (22-29); Chloride 99 mmol/L (98-107); Creatinine Clr Calc Pharmacy 114.4799; Globulin 2.5 g/dL (1.3-4.6); Glomerular Filtration Rate 88.6 mL/min (90-130); Glucose 98 mg/dL (65-115); Osmolality Calculated 285 mOsm/kg (285-295); Sodium 138 mmol/L (136-145); Total Bilirubin 0.4 mg/dL (0.15-1.2); Total Protein 6.8 g/dL (6.6-8.7)
== END 2024-02-21 23:59 | disposition home or self-care (01) ==
PROVIDERS: Nurse Practitioner Family; PCP Nurse Practitioner Family; Visit Provider Internal Medicine Medical Oncology
DX: Z85.038 Personal history of other malignant neoplasm of large intestine
CPT/HCPCS: 36415; 80053; 82378; 85025

== ENCOUNTER 2024-09-20 19:16 | Emergency (ER) | payer OTHER, SELFPAY ==
[2024-09-20 19:21] VITALS: BP 182/93; PULSE 52; RESP 18; TEMP 36.6; O2SAT 98; BMI 28.5
--- NOTE | 2024-09-20 20:34 | CTR_ITS ---
PROCEDURE INFORMATION: Exam: CT Head Without Contrast Exam date and time: 09/20/2024 8:42 PM Age: 54 years old Clinical indication: Pain; Headache; Occipital LOMAX with n/v. ; Additional info: Headache vision changes TECHNIQUE: Imaging protocol: Computed tomography of the head without contrast. Radiation optimization: All CT scans at this facility use at least one of these dose optimization techniques: automated exposure control; mA and/or kV adjustment per patient size (includes targeted exams where dose is matched to clinical indication); or iterative reconstruction. COMPARISON: CT head wo con* [id number] 07/19/2021 6:05 PM RADIATION DOSE METRICS: Total DLP (mGy-cm): 1114.98 FINDINGS: Brain: The size and configuration of the ventricular system and cortical sulci are within normal limits for age. No acute intracranial hemorrhage or significant mass effect is seen. Cerebral ventricles: There is stable asymmetry of the lateral ventricles, right larger than left. No evidence for hydrocephalus. Paranasal sinuses: Visualized sinuses are clear. No air fluid levels. Mastoid air cells: Visualized mastoid air cells are well aerated. Bones: Intact. No acute fracture detected. Soft tissues: Unremarkable. CT/CT head wo con* [id number] IMPRESSION: No acute intracranial abnormality appreciated. If there is persistent clinical concern, MRI may be helpful for further evaluation.
[2024-09-20] MEDS: diphenhydrAMINE 50 mg/mL SDV 1mL IVP (21:26)
[2024-09-20] MEDS: dexamethasone 10 mg/mL INJ IVP (21:26)
[2024-09-20] MEDS: ketorolac 30 mg/mL INJ 15 MG IVP (21:26)
[2024-09-20] MEDS: ondansetron 2 mg/ML SDV 2 mL 4 MG IVP (21:26)
[2024-09-20] MEDS: sodium chloride 0.9% 1,000 ML 999 ML IV (21:27)
--- NOTE | 2024-09-20 22:59 | ED_ITS ---
HPI - Headache General: Chief Complaint: Headache Stated Complaint: migraine vomiting dizzy vision changes Time Seen by Provider: 09/20/24 19:43 History of Present Illness: 54-year-old male patient presents to the emergency department with an atypical headache. Patient states he has had some headaches in the past but it has been a long time and has never had a headache like this. Patient states he has been out of his blood pressure medication and feels like that may be the contributing factor but is unsure. Patient has had nausea all day with several episodes of vomiting. Patient denies any fever. Patient denies any chest pain or shortness of breath. Patient denies some visual changes and photophobia. Related Data Home Medications ?Medication ?Instructions ?Recorded ?Confirmed lisinopril 20 mg tablet 20 mg PO DAILY 07/28/2201/22 omeprazole 20 mg tablet,delayed 20 mg PO DAILY 3 02/18/24 release levocetirizine 5 mg tablet (Xyzal) 5 mg PO DAILY PRN 0 08/13/23 02/18/24 Previous Rx's ?Medication ?Instructions ?Recorded ondansetron 4 mg disintegrating 4 mg PO Q6H PRN nausea and 11/22/22 tablet vomiting #30 tabs fluoxetine 40 mg capsule (Prozac) 40 mg PO DAILY #90 c aps 02/13/24 lisinopril 20 1 tab PO DAILY #90 tabs 01/22 07/14 mg-hydrochlorothiazide 25 mg tablet lisinopril 20 1 tab PO DAILY #90 tabs 08/23/25 mg-hydrochlorothiazide 25 mg tablet ondansetron 4 mg disintegrating 4 mg PO Q8H PRN nausea and 09/20/24 tablet vomiting 4 days #20 tabs Allergies Allergy/AdvReac Type Severity Reaction Status Date / Time No Known Allergies Allergy Verified 02/18/24 13:44 Review of Systems General: Reports: 10 or more systems reviewed and unremarkable except in HPI and below PFSH ED PFSH: Medical History Hypertension History of kidney stones GERD (gastroesophageal reflux disease) COVID-19 Right distal ureteral calculus 5.3 mm right distal ureteral stone with obstruction and severe symptomatology requiring hospitalization and endoscopic lithotripsy. 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 and repair of ventral abdominal wall hernia H/O esophagogastroduodenoscopy (02/25/21) Gastritis Status post left hemicolectomy (11/28/19) Status post colonoscopy with polypectomy (02/25/21) History of oral surgery Family History Grandmother Cancer Mother Diabetes Hyperlipidemia Hypertension Denies family history of CAD (coronary artery disease) Clotting disorder Dementia Psychiatric illness Chronic kidney disease (CKD) Suicide Anesthesia complication Bleeding disorder Lung disease Stroke Social History Smoking and tobacco/nicotine status: former use of tobacco/nicotine Quit status (tobacco/nicotine): has quit using Former quit date comment: smoked x 20 years Second hand smoke exposure: No Alcohol intake: current Alcohol intake frequency: holidays/special occasions only Alcohol type: beer Substance/Drug Use: never Caregiver/support person: Yes Lives independently: Yes Housing: House Marital status: service: Yes branch: [employer] Current occupational status: employed Do you think of yourself as: Straight/Heterosexual Ana M/Taoism: Zoroastrianism Physical Exam Const: COMMON NORMALS: no acute distress and patient oriented x3 GENERAL APPEARANCE: cooperative Eye: GENERAL EYE: appearance normal, both eyes and all related structures Resp: COMMON NORMALS: normal respiratory effort and clear to auscultation bilaterally EFFORT & INSPECTION: Yes able to speak in complete sentences and No labored AUSCULTATION: clear to auscultation bilaterally Cardio: COMMON NORMALS: regular rate and regular rhythm RATE: regular rate RHYTHM: regular rhythm GI: COMMON NORMALS: Soft to palpation AUSCULTATION: Yes normoactive bowel sounds PALPATION: Yes Soft to palpation Neuro: COMMON NORMALS: patient oriented x3 SPEECH: speech normal Psych: COMMON NORMALS: Normal thought process present ATTITUDE: Yes calm MOOD & AFFECT: No anxious THOUGHT PROCESS: Normal thought process present Skin: COMMON NORMALS: no jaundice Course Vital Signs: Vital signs: Vital Signs Temperature 97.9 F 09/20/24 19:21 Pulse Rate 52 L 09/20/24 19:21 Respiratory Rate 18 09/20/24 19:21 Blood Pressure 182/93 05/31/25 19:21 Pulse Oximetry 98 09/20/24 19:21 Oxygen Delivery Me thod Room Air 09/20/24 19:21 MDM - Headache Medical Decision Making Patient is well-appearing nontoxic and in no acute distress. 54-year-old male patient presents to the emergency department with an atypical headache. Patient states he has had some headaches in the past but it has been a long time and has never had a headache like this. Patient states he has been out of his blood pressure medication and feels like that may be the contributing factor but is unsure. Patient has had nausea all day with several episodes of vomiting. Patient denies any fever. Patient denies any chest pain or shortness of breath. Patient denies some visual changes and photophobia. Given patient's concerns for headache we will go ahead and CT patient at this time. CT head was negative for any acute findings. Patient was given Decadron Zofran Benadryl and Toradol 1 L of normal saline IV patient stated his pain is much more tolerable and he feels ready to go home at this time. I will give patient a refill on his hypertension medicine. I discussed follow-up with patient as well as home care and return precautions patient verbalizes understanding. Lab Data Radiology Impressions Head CT 09/20/24 20:34 IMPRESSION: No acute intracranial abnormality appreciated. If there is persistent clinical concern, MRI may be helpful for further evaluation. All radiology interpretation(s) finalized by discharge Discharge Plan Discharge Patient Disposition: Home Clinical Impression: Migraine Condition: Stable Prescriptions: New lisinopril-hydrochlorothiazide 20-25 mg tablet 1 tab PO DAILY Qty: 90 0RF ondansetron 4 mg tablet,disintegrating 4 mg PO Q8H PRN (Reason: nausea and vomiting) 4 Days Qty: 20 0RF No Action levocetirizine [Xyzal] 5 mg tablet 5 mg PO DAILY PRN omeprazole 20 mg tablet,delayed release (DR/EC) 20 mg PO DAILY lisinopril 20 mg tablet 20 mg PO DAILY lisinopril-hydrochlorothiazide 20-25 mg tablet 1 tab PO DAILY Qty: 90 1RF fluoxetine [Prozac] 40 mg capsule 40 mg PO DAILY Qty: 90 1RF ondansetron 4 mg tablet,disintegrating 4 mg PO Q6H PRN (Reason: nausea and vomiting) Qty: 30 0RF Discharge Orders: Discharge ED (Routine); Ordered 09/20/24 Ordered By: Jade Johnson Referrals: Connie Cowan FNP-C [Primary Care Provider, [facility]] Discharge Diet: Advance as tolerated Discharge Activity: Increase activity as tolerated Patient Instructions: Opioid Safety, Pain Management, Headache - Migraine (Adult) Activity Restrictions/Additional Instructions: Take meds as prescribed Return to ER if symptoms that suddenly change or get worse a headache after a bowel movement, coughing, or sneezing a headache accompanied by vision changes, sleepiness, seizures, difficulty speaking, fever, stiff neck, confusion, dizziness, numbness, weakness, or a loss of consciousness Print Language: Hebrew Coding Level of Care Code ED Business Management Consultant for Anthony Ryan
[2024-09-20 23:09] VITALS: BP 132/79; PULSE 51; O2SAT 95
== END 2024-09-20 23:14 | disposition home or self-care (01) ==
PROVIDERS: Emergency Provider Registered Nurse; PCP Nurse Practitioner Family
DX: G43.909 Migraine, unspecified, not intractable, without status migrainosus (principal); Z87.891 Personal history of nicotine dependence; I10 Essential (primary) hypertension
CPT/HCPCS: 70450; 96361; 96374; 96375; 99285; J1100; J1200; J1885; J2405; J7030